=== PATIENT | female | born 1930 | race Caucasian/White ===

== ENCOUNTER 2016-10-29 11:00 | Emergency (ER) | payer MEDICARE, OTHER ==
[~2016-10-29] VITALS: Ht 157.5 cm; Wt 58.4 kg
[2016-10-29 11:04] VITALS: BP 144/78; PULSE 71; RESP 18; TEMP 98.3; O2SAT 96
[2016-10-29] MEDS ORDERED: NORC5TAB PO (11:27)
[2016-10-29] MEDS ORDERED: RALO1TAB PO (11:27)
[2016-10-29] MEDS ORDERED: MOBI7.5T PO (11:27)
[2016-10-29] MEDS ORDERED: ARIC10TA2 PO (11:27)
[2016-10-29] MEDS ORDERED: RAMI10CA PO (11:27)
[2016-10-29] MEDS ORDERED: LIDO1PAD52 TOPICAL (11:27)
[2016-10-29] MEDS ORDERED: ASPI325T PO (11:27)
[2016-10-29] MEDS ORDERED: PRED5TAB PO (11:27)
[2016-10-29] MEDS ORDERED: AMLO2.5T PO (11:27)
--- NOTE | 2016-10-29 11:40 | PD ---
HPI Chief Complaint: Pain: Acute or Chronic Time Seen by Provider: 11:00 Travel History International Travel<30 days: No Contact w/Intl Traveler<30days: No Traveled to known affect area: No History of Present Illness HPI 86-year-old female presents to the emergency room for evaluation of bilateral back pain radiating into bilateral buttocks for the past 2 days. Patient denies trauma or injury. She has history of low back pain and recent x-rays at [place] but the only diagnosis is osteoporosis. She states she woke up with the pain and has been getting worse throughout the last 2 days. Back pain is constant, aching but does not hurt when she touches it. She is unable to bear weight because it is too painful. She usually ambulates with a cane but has had to use a wheelchair in the past 2 days. Pain is worst in the left buttocks but also occurs in the right buttocks. It radiates into her left leg. She has been receiving Almo 5/325, mobile, and lidocaine patches without any relief in symptoms. Her primary care physician also started her on prednisone 5 mg daily on 10/16/16 for pain. Patient reports minimal pain when she is resting. She denies lower extremity paresthesias, saddle anesthesia, and loss of bowel or bladder control. Denies nausea, vomiting, and diarrhea. PFSH Past Medical History High Cholesterol: Yes Cerebrovascular Accident: Yes Dementia: Yes Diverticulitis: Yes Hypertension: Yes Medical other: Yes (CHRONIC PAIN) ?: Not Menopausal: Yes Past Surgical History Surgical History: No Previous Surgery Social History Alcohol Use: No Tobacco Use: No Substance Use: No Allergies-Medications (Allergen,Severity, Reaction): Coded Allergies: No Known Allergies (Unverified , 10/29/16) Reported Meds & Prescriptions Reported Meds & Active Scripts Active Percocet (Oxycodone-Acetaminophen) 7.5-325 mg Tab 1 Tab PO Q6H PRN Reported Lidocaine Patch 12 HR (Lidocaine) 5 % Patch 1 Patch TOPICAL DAILY PRN Remove patch after 12 hours Raloxifene (Raloxifene HCl) 60 Mg Tab 60 Mg PO DAILY Ramipril 10 Mg Cap 10 Mg PO BID Prednisone 5 Mg Tab 5 Mg PO DAILY Mobic (Meloxicam) 7.5 Mg Tab 7.5 Mg PO DAILY [place] (Hydrocodone-Acetaminophen) 5-325 mg Tab 1 Tab PO Q6H PRN Aspirin 325 Mg Tab 325 Mg PO DAILY Aricept (Donepezil HCl) 10 Mg Tablet 1 Tab PO DAILY Amlodipine (Amlodipine Besylate) 2.5 Mg Tab 2.5 Mg PO DAILY Review of Systems Except as stated in HPI: all other systems reviewed are Neg Physical Exam Narrative GENERAL: Well-nourished, well-developed female in no acute distress. Afebrile. SKIN: Focused skin assessment warm/dry. HEAD: Normocephalic. EYES: No scleral icterus. No injection or drainage. NECK: Supple, trachea midline. No JVD or lymphadenopathy. CARDIOVASCULAR: Regular rate and rhythm without murmurs, gallops, or rubs. RESPIRATORY: Breath sounds equal bilaterally. No accessory muscle use. GASTROINTESTINAL: Abdomen soft, non-tender, nondistended. MUSCULOSKELETAL: No cyanosis, or edema. Bilateral 2+ dorsalis pedis pulses. BACK: Nontender without obvious deformity. No CVA tenderness. Negative straight leg raise. Data Data Last Documented VS Vital Signs Date Time Temp Pulse Resp B/P Pulse Ox O2 Delivery O2 Flow Rate FiO2 10/29/16 17:39 64 18 138/78 98 10/29/16 15:20 Room Air 10/29/16 11:[address] Lumb Spine W/O Contrast (10/29/16 ) Comprehensive Metabolic Panel (10/29/16 13:21) Complete Blood Count With Diff (10/29/16 13:21) Us Kidney/Renal/Bladder (10/29/16 ) Iv Access Insert/Monitor (10/29/16 13:26) ^ Straight Catheter (10/29/16 13:45) Urinalysis - C+S If Indicated (10/29/16 13:45) Morphine Inj (Morphine Inj) (10/29/16 14:30) Mri L Spine W&W/O Contrast (10/29/16 ) Gadodiamide Pf Inj (Omniscan Pf Inj) (10/29/16 14:53) TLSO (10/29/16 ) Brace Lso-Orthosis (10/29/16 ) Brace Thoracic Ext (10/29/16 ) Labs Laboratory Tests Test 10/29/16 10/29/16 10/29/16 13:30 13:50 14:25 White Blood Count 15.6 TH/MM3 Red Blood Count 3.94 MIL/MM3 Hemoglobin 11.7 GM/DL Hematocrit 36.4 % Mean Corpuscular Volume 92.3 FL Mean Corpuscular Hemoglobin 29.8 PG Mean Corpuscular Hemoglobin 32.3 % Concent Red Cell Distribution Width 14.0 % Platelet Count 220 TH/MM3 Mean Platelet Volume 8.9 FL Neutrophils (%) (Auto) % Lymphocytes (%) (Auto) % Monocytes (%) (Auto) % Eosinophils (%) (Auto) % Basophils (%) (Auto) % Neutrophils # (Auto) TH/MM3 Lymphocytes # (Auto) TH/MM3 Monocytes # (Auto) TH/MM3 Eosinophils # (Auto) TH/MM3 Basophils # (Auto) TH/MM3 CBC Comment AUTO DIFF Neutrophils % (Manual) 86 % Band Neutrophils % 2 % Lymphocytes % 12 % Neutrophils # (Manual) 13.7 TH/MM3 Differential Comment FINAL DIFF MANUAL Platelet Estimate NORMAL Platelet Morphology Comment ENLARGED Hematology Comments Urine Collection Type CATH Urine Color YELLOW Urine Turbidity CLEAR Urine pH 7.0 Urine Specific [place] 1.015 Urine Protein NEG mg/dL Urine Glucose (UA) NEG mg/dL Urine Ketones 15 mg/dL Urine Occult Blood NEG Urine Nitrite NEG Urine Bilirubin NEG Urine Leukocyte Esterase NEG Urine RBC 0-3 /hpf Microscopic Urinalysis Comment CULT NOT INDICATED Urine Collection Time 1350 Sodium Level 142 MEQ/L Potassium Level 3.7 MEQ/L Chloride Level 105 MEQ/L Carbon Dioxide Level 30.3 MEQ/L Anion Gap 7 MEQ/L Blood Urea Nitrogen 16 MG/DL Creatinine 0.67 MG/DL Estimat Glomerular Filtration 84 ML/MIN Rate Random Glucose 110 MG/DL Calcium Level 8.9 MG/DL Total Bilirubin 0.9 MG/DL Aspartate Amino Transf 27 U/L (AST/SGOT) Alanine Aminotransferase 34 U/L (ALT/SGPT) Alkaline Phosphatase 146 U/L Total Protein 6.6 GM/DL Albumin 3.4 GM/DL [facility] Medical Decision Making Medical Screen Exam Complete: Yes Emergency Medical Condition: Yes Medical Record Reviewed: Yes Differential Diagnosis Sciatica, low back pain, muscle spasm Narrative Course 86-year-old female presents to the emergency room for evaluation of bilateral low back pain radiates into bilateral buttocks the past 2 days. Patient denies any trauma or injury. She has history of chronic low back pain but has had multiple x-rays that "only show osteoporosis." Her back pain is constant throughout bilateral lumbar spine with radiation into the bilateral buttocks. Patient was able to ambulate with a cane 2 days ago but now can only use a wheelchair. She denies focal neurological deficits. CT shows compression fractures of T12 and L5 of unknown chronicity; it also shows hydronephrosis of the left kidney with a 5 mm nonobstructing stone with recommendation for ultrasound. CBC, CMP, and UA were essentially unremarkable. Ultrasound shows dilated left renal collecting system which is likely chronic. Patient was informed of results. MRI of the lumbar spine was performed to evaluate chronicity and reveals L5 is subacute and T12 is chronic. I spoke to the neurosurgeon on-call, Dr. Burnett, who recommends placing patient in TLSO and having her follow-up in his office. Patient was discharged with Percocet and told to take this instead of Lortab. Told to follow up with her primary care physician and neurosurgeon or return to the emergency room for worsening symptoms. She understands and agrees to plan. Diagnosis Primary Impression: Compression fracture of L5 lumbar vertebra Qualified Code: S32.050A - Compression fracture of L5 lumbar vertebra, closed , initial encounter Additional Impression: Sacral fracture, closed Qualified Code: S32.10XA - Closed fracture of sacrum, unspecified portion of sacrum, initial encounter Referrals: Akin Burnett MD Neurosurgeon Patient Instructions: General Instructions, Vertebral Compression Fracture (ED) Additional Instructions: Rest and drink plenty of fluids. Take Percocet instead of Almo as directed, as needed for pain. Do not drink alcohol or drive while taking this medication. Do not use this medication long- term as it may cause constipation. Apply ice to the affected area for 20 minutes at a time, as needed for pain and swelling. Follow-up with a neurosurgeon. Return to the emergency room for worsening symptoms. Med/Other Pt SpecificInfo: Prescription(s) given Scripts Oxycodone-Acetaminophen (Percocet)7.5-325 mg Tab1 Tab PO Q6H PRN (PAIN) #12 TAB Ref 0 Prov:Cari Vee DO 10/29/16 Disposition: 01 DISCHARGE HOME Condition: Stable Alla Alex Oct 29, 2016 11:40
--- NOTE | 2016-10-29 13:25 | RADRPT ---
EXAM DATE/TIME: 10/29/2016 12:27 [facility] COMPARISON: No previous studies available for comparison. INDICATIONS : Low back pain. RADIATION DOSE: 25.25 CTDIvol (mGy) MEDICAL HISTORY : Cerebrovascular disease. Dementia. Hypertension. SURGICAL HISTORY : None. ENCOUNTER: Initial ACUITY: 2 days PAIN SCALE: 10/10 LOCATION: Lumbar spine. TECHNIQUE: Volumetric scanning of the lumbar spine was performed. Multiplanar reconstructions in the sagittal, coronal and oblique axial planes were performed. Using automated exposure control and adjustment of the mA and/or kV according to patient size, radiation dose was kept as low as reasonably achievable t o obtain optimal diagnostic quality images. DICOM format image data is available electronically for review and comparison. FINDINGS: Examination is abnormal. There is a moderate compression deformity involving the superior endplate of T12 and mild compression deformity and apparent cleft involving the inferior endplate of L5. There i s minimal buckling of the inferior endplate of L5. Otherwise, no significant retropulsed fragments. R emaining vertebral body heights are intact. Bony central canal is patent. Sagittal alignment is maint ained. Facets are normally aligned. There is multilevel degenerative spondylosis most prominently at L3-S1 with diffuse disc bulge, osteo phyte formation, and facet arthropathy. No severe neural foraminal stenosis is noted. The Evaluation of the prevertebral soft tissues demonstrates moderate left-sided hydronephrosis extending to the UP junction. There is a 5 mm calcified calculus noted posteriorly in the inferior pole. This does not appear to be at the UP junction. Precise portions of the right kidney are unremarkable witho ut evidence for hydronephrosis. Remaining visualized paraspinal soft tissues are unremarkable. CONCLUSION: 1. Moderate T12 and mild L5 compression fractures of unknown chronicity given lack of prior exams. Marsh spect acute L5 fracture given the presence of an apparent cleft. Correlation with tenderness on palpa tion of the spinous processes is recommended. MRI examination may be performed to evaluate for bone m arrow edema if there is continued uncertainty regarding chronicity. Consider cement augmentation part icularly at L5 given presence of cleft which often times remains symptomatic and is at risk for furth er collapse. 2. Moderate left-sided hydronephrosis extending to the UP junction. There is a 5 mm calcified calculu s in the inferior pole of the left kidney which does not appear to be at the UPJ. Additionally, there is cortical thinning in the left kidney reflecting some degree of chronicity. Further evaluation may be performed with ultrasound exam as clinically warranted. Findings were personally discussed with Dr. Ventura at the time of this dictation. Zain Cheng MD on October 29, 2016 at 13:05 Board Certified Radiologist. This report was verified electronically.
[2016-10-29] MEDS ORDERED: MORPHINE SULFATE 4 MG/ML INJ IV PUSH ONE (13:30)
[2016-10-29 13:44] LABS: HEMATOCRIT 36.4 % (35.0-46.0); MEAN CELL VOLUME 92.3 FL (80.0-100.0); MEAN CORPUSCULAR HEMOGLOBIN 29.8 PG (27.0-34.0); MEAN CORPUSCULAR HGB CONC 32.3 % (32.0-36.0); PLATELET COUNT 220 TH/MM3 (150-450); RED BLOOD COUNT 3.94 MIL/MM3 (4.00-5.30); WHITE BLOOD COUNT 15.6 TH/MM3 (4.0-11.0)
[2016-10-29 13:45] LABS: HEMATOLOGY STUDY COMMENT ND; HEMO FLAGS AUTO DIFF
[2016-10-29 14:09] LABS: BLOOD, URINE NEG (NEG); GLUCOSE,URINE NEG (NEG); KETONE, URINE 15 mg/dL (NEG); NITRITE,URINE NEG (NEG)
[2016-10-29 14:27] LABS: BANDS 2 % (0-6); NEUTROPHIL # MANUAL DIFF 13.7 TH/MM3 (1.8-7.7); PLATELET ESTIMATE SMEAR NORMAL (NORMAL); PLATELET MORPHOLOGY ENLARGED (NORMAL); POLYS (SEG NEUTROPHILS) 86 % (16-70); SCAN/DIFF FINAL DIFF MANUAL
[2016-10-29] MEDS ORDERED: MORPHINE SULFATE 8 MG/ML INJ IV PUSH ONE (14:30)
[2016-10-29 14:38] LABS: METHOD OF COLLECTION CATH; URINE COLOR YELLOW (YELLW/STRAW)
[2016-10-29 14:39] LABS: CHLORIDE 105 MEQ/L (98-107); POTASSIUM 3.7 MEQ/L (3.5-5.1); SODIUM (NA) 142 MEQ/L (136-145)
[2016-10-29 14:39] LABS: COMMENT (UR) CULT NOT INDICATED; CULTURE IF INDICATED CULT NOT INDICATED; RBC, URINE 0-3 /hpf (0-3)
[2016-10-29 14:42] LABS: ANION GAP 7 MEQ/L (5-15); BICARBONATE 30.3 MEQ/L (21.0-32.0); BLOOD UREA NITROGEN 16 MG/DL (7-18)
[2016-10-29 14:45] LABS: ALT (GPT) 34 U/L (10-53); AST (GOT) 27 U/L (15-37)
[2016-10-29 14:46] LABS: GLOMERULAR FILTRATION RATE 84 ML/MIN (>89)
[2016-10-29 14:47] LABS: TOTAL BILIRUBIN ADULT 0.9 MG/DL (0.2-1.0)
[2016-10-29 14:48] LABS: ALKALINE PHOSPHATASE 146 U/L (45-117)
[2016-10-29] MEDS ORDERED: GADODIAMIDE PF 287 MG/ML 10 ML VIAL (for RAD MRI) IV ONE (14:53)
--- NOTE | 2016-10-29 14:58 | RADRPT ---
EXAM DATE/TIME: 10/29/2016 14:06 [facility] COMPARISON: CT LUMBAR SPINE W/O CONTRAST, October 29, 2016, 12:27. INDICATIONS : Hydronephrosis. MEDICAL HISTORY : Dementia. Hypercholesterolemia. Diverticulitis. CVA. HTN. Chronic pain. SURGICAL HISTORY : None. ENCOUNTER: Initial ACUITY: 1 day PAIN SCORE: 6/10 LOCATION: Bilateral flank MEASUREMENTS: RIGHT KIDNEY: 11.4 x 5.1 x 5.3 cm LEFT KIDNEY: 9.3 x 5.3 x 5.5 cm FINDINGS: RIGHT KIDNEY: Renal cortex is normal in thickness and echotexture. No hydronephrosis, stone, or mass. LEFT KIDNEY: Left kidney demonstrates a lobulated contour with areas of cortical thinning. There is distention of the left collecting system and extrarenal pelvis with a caliber change at the level of the UPJ on the prior CT. The stone identified in the extrarenal pelvis on recent CT is not appreciated on this exam ination. There is a simple cyst at the upper pole measuring 3.3 cm. BLADDER: Within normal limits given the degree of distension. CONCLUSION: 1. Dilated left renal collecting system. Comparing this examination to the prior CT suggests a UPJ st enosis which is likely chronic given the left renal cortical thinning. 2. The 5 mm nonobstructing left renal pelvis stone identified on prior CT is not appreciated by ultra sound. Cristiano Aguirre MD on October 29, 2016 at 14:52 Board Certified Radiologist. This report was verified electronically.
[2016-10-29 15:20] VITALS: BP 140/64; PULSE 77; RESP 18; O2SAT 94
--- NOTE | 2016-10-29 15:39 | RADRPT ---
EXAM DATE/TIME: 10/29/2016 14:43 [facility] COMPARISON: CT LUMBAR SPINE W/O CONTRAST, October 29, 2016, 12:27. INDICATIONS : Pain. Lower back pain radiating to right leg. CONTRAST: 10 cc Omniscan (gadodiamide) IV MEDICAL HISTORY : Hypertension. Dementia. SURGICAL HISTORY : Tubal ligation. ENCOUNTER: Initial ACUITY: 4-6 days PAIN SCORE: 7/10 LOCATION: Back. TECHNIQUE: Multiplanar multisequence MRI of the lumbar spine was performed with and without contrast. FINDINGS: The most caudal appearing lumbar vertebra is numbered as L5. VERTEBRAE: There is an old moderate compression fracture injury involving the superior endplate of T12. No abnor mal bone marrow edema is demonstrated. There is a mild to moderate subacute compression fracture invo lving the inferior endplate of L5. There is bone marrow edema across the inferior endplate of L5. The re is normal bony density of the remaining lumbar vertebral bodies. There are primary bony degenerati ve changes of the lumbar spine. No spondylolisthesis is demonstrated. There is a nondisplaced fractur e with bone marrow edema involving the body of the right sacrum. This is most likely an insufficiency fracture. CONUS: Normal level and configuration. POST CONTRAST: No abnormal areas of contrast enhancement are seen. T12-L1: The thecal sac has a normal diameter. No evidence of disc bulge or protrusion. The neural foramina are patent bilaterally. L1-L2: The thecal sac has a normal diameter. No evidence of disc bulge or protrusion. The neural foramina are patent bilaterally. L2-L3: The thecal sac has a normal diameter. No evidence of disc bulge or protrusion. The neural foramina are patent bilaterally. Bilateral facet arthritis. L3-L4: The thecal sac has a normal diameter. No evidence of disc bulge or protrusion. The neural foramina are patent bilaterally. Bilateral facet arthritis. L4-L5: The thecal sac has a normal diameter. No evidence of disc bulge or protrusion. The neural foramina are patent bilaterally. Bilateral facet arthritis. L5-S1: The thecal sac has a normal diameter. No evidence of disc bulge or protrusion. The neural foramina are patent bilaterally. Bilateral facet arthritis. CONCLUSION: 1. Subacute compression fracture involving the inferior plate of L5. 2. Old compression fracture involving the superior endplate of T12 3. Mild primary bony degenerative changes throughout the lumbar spine with bilateral facet arthritis at multiple levels. 4. Nondisplaced insufficiency fracture through the body of the right sacrum. Srini Elkins MD on October 29, 2016 at 15:31 Board Certified Radiologist. This report was verified electronically.
[2016-10-29] MEDS ORDERED: PERC7.5T13 PO (16:42)
[2016-10-29 17:39] VITALS: BP 138/78
[2016-10-30] MEDS ORDERED: SENN1TAB PO (13:29)
[2016-10-30] MEDS ORDERED: NORC5TAB PO (13:29)
[2016-10-30] MEDS ORDERED: VITA100021 SL (13:29)
== END 2016-10-29 17:40 | disposition home or self-care (01) ==
LOC: PHEFT 11:00
DX: S32.050A Wedge compression fracture of fifth lumbar vertebra, initial encounter for closed fracture (principal); S32.10XA Unspecified fracture of sacrum, initial encounter for closed fracture; N13.30 Unspecified hydronephrosis; G89.29 Other chronic pain; E78.00 Pure hypercholesterolemia, unspecified; F03.90 Unspecified dementia, unspecified severity, without behavioral disturbance, psychotic disturbance, mood disturbance, and anxiety; I10 Essential (primary) hypertension; Z79.899 Other long term (current) drug therapy; Z86.73 Personal history of transient ischemic attack (TIA), and cerebral infarction without residual deficits; X58.XXXA Exposure to other specified factors, initial encounter
CPT/HCPCS: 72131; 72158; 76775; 80053; 81001; 85007; 85027; 96374; 99285; A9579; J2270; L0200; L0484

== ENCOUNTER 2016-10-30 12:59 | Inpatient (IN) | payer MEDICARE, OTHER ==
[~2016-10-30] VITALS: Ht 157.5 cm; Wt 58.2 kg
[~2016-10-30 12:59] MED LIST: AMLO2.5T PO; ARIC10TA2 PO; ASPI325T PO; LIDO1PAD52 TOPICAL; MOBI7.5T PO; NORC5TAB PO; PERC7.5T13 PO; PRED5TAB PO; RALO1TAB PO; RAMI10CA PO
[2016-10-30 13:15] VITALS: BP 134/63; PULSE 77; RESP 16; O2SAT 95
[2016-10-30] MEDS ORDERED: VITA100021 SL (13:29)
[2016-10-30] MEDS ORDERED: SENN1TAB PO (13:29)
[2016-10-30] MEDS ORDERED: NORC5TAB PO (13:29)
--- NOTE | 2016-10-30 14:59 | PD ---
HPI Chief Complaint: Back/ Neck Pain or Injury Time Seen by Provider: 14:45 Travel History International Travel<30 days: No Contact w/Intl Traveler<30days: No Traveled to known affect area: No History of Present Illness HPI This is an 86-year-old female who is a resident [place]. She presents via EMS for evaluation of lower back pain. The patient has had lower back pain for 3 days. There was no mechanism injury. The pain is a aching pain that is constant, worse with movement. Denies any radicular symptoms, bowel or bladder incontinence or saddle anesthesia. Denies any flank pain, dysuria, abdominal pain, fevers or chills. She typically ambulates with a cane but over the past 3 days she's been having to get around in a wheelchair. She was seen at [facility] for evaluation of this pain. She underwent an MRI of the lumbar spine which revealed a likely subacute fracture of the L5 as well as a insufficiency fracture of the right sacrum. The case at that time was discussed with the on-call neurosurgeon Dr. Burnett who recommended TLSO brace and outpatient follow-up. The patient was discharged with Percocet. She reports since then she has had persistent lower back pain which is completely unrelieved with the use of Percocet. The pain is a 10 out of 10 with movement. Today she was unable to sit down at lunch and so EMS was called. She has no other complaints. PFSH Past Medical History High Cholesterol: Yes Cerebrovascular Accident: Yes Dementia: Yes Diverticulitis: Yes Hypertension: Yes Menopausal: Yes Social History Alcohol Use: No Tobacco Use: No Substance Use: No Allergies-Medications (Allergen,Severity, Reaction): Coded Allergies: No Known Allergies (Unverified , 10/30/16) Reported Meds & Prescriptions Reported Meds & Active Scripts Active Percocet (Oxycodone-Acetaminophen) 7.5-325 mg Tab 1 Tab PO Q6H PRN Reported Vitamin B-12 (Cyanocobalamin) 1,000 Mcg Subl 1,000 Mcg SL DAILY Senna-Plus (Sennosides-Docusate Sodium) 8.6-50 Mg Tab 2 Tab PO DAILY PRN [place] (Hydrocodone-Acetaminophen) 5-325 mg Tab 1 Tab PO HS Lidocaine Patch 12 HR (Lidocaine) 5 % Patch 1 Patch TOPICAL DAILY PRN Remove patch after 12 hours Raloxifene (Raloxifene HCl) 60 Mg Tab 60 Mg PO DAILY Ramipril 10 Mg Cap 10 Mg PO BID Prednisone 5 Mg Tab 5 Mg PO DAILY Mobic (Meloxicam) 7.5 Mg Tab 7.5 Mg PO BID [place] (Hydrocodone-Acetaminophen) 5-325 mg Tab 0.5 Tab PO Q6H PRN Aspirin 325 Mg Tab 325 Mg PO DAILY Aricept (Donepezil HCl) 10 Mg Tablet 1 Tab PO DAILY Amlodipine (Amlodipine Besylate) 2.5 Mg Tab 2.5 Mg PO DAILY Review of Systems Except as stated in HPI: all other systems reviewed are Neg Physical Exam Narrative GENERAL: Pleasant well-developed well-nourished female in no acute distress sitting upright in hospital bed. TLSO braces in place. SKIN: Warm and dry. HEAD: Atraumatic. Normocephalic. EYES: Pupils equal and round. No scleral icterus. No injection or drainage. ENT: No nasal bleeding or discharge. Mucous membranes pink and moist. NECK: Trachea midline. No JVD. CARDIOVASCULAR: Regular rate and rhythm. No murmur appreciated. RESPIRATORY: No accessory muscle use. Clear to auscultation. Breath sounds equal bilaterally. GASTROINTESTINAL: Abdomen soft, non-tender, nondistended. Hepatic and splenic margins not palpable. MUSCULOSKELETAL: No obvious deformities. There is tenderness to palpation along the lumbar midline. No CVA tenderness. There is spontaneous use of the upper and lower extremities. NEUROLOGICAL: Awake and alert. No obvious cranial nerve deficits. Motor grossly within normal limits. Normal speech. PSYCHIATRIC: Appropriate mood and affect; insight and judgment normal. Data Data Last Documented VS Vital Signs Date Time Temp Pulse Resp B/P Pulse Ox O2 Delivery O2 Flow Rate FiO2 10/30/16 15:00 98.4 73 18 180/77 96 Room Air Orders Morphine Inj (Morphine Inj) (10/30/16 15:00) Ondansetron Inj (Zofran Inj) (10/30/16 15:00) Iv Access Insert/Monitor (10/30/16 14:56) Complete Blood Count With Diff (10/30/16 14:56) Comprehensive Metabolic Panel (10/30/16 14:56) Admit Order (Ed Use Only) (10/30/16 15:12) MDM Medical Decision Making Medical Screen Exam Complete: Yes Emergency Medical Condition: Yes Medical Record Reviewed: Yes Differential Diagnosis Intractable back pain, compression fracture, renal stone, muscle spasm, AAA Narrative Course This is an 86-year-old female who presents for lower back pain which is unrelieved with the use of Percocet at home and with the use of TLSO brace.. She has an L5 compression fracture as well as a insufficiency fracture of the right sacrum. After discussion with the patient she does not feel that she will be able to perform her normal activities of daily living at home and would prefer to be admitted for pain control. Discussed with Dr. Moran who is agreeable with admission. Diagnosis Primary Impression: Compression fracture of L5 lumbar vertebra Qualified Code: S32.050D - Compression fracture of L5 lumbar vertebra, with routine healing, subsequent encounter Additional Impression: Sacral fracture, closed Qualified Code: S32.10XD - Closed fracture of sacrum with routine healing, unspecified portion of sacrum, subsequent encounter Admitting Information Admitting Physician Requests: Randolph Deal Oct 30, 2016 14:59
[2016-10-30 15:00] VITALS: BP 180/77; PULSE 73; RESP 18; TEMP 98.4; O2SAT 96
[2016-10-30] MEDS ORDERED: MORPHINE SULFATE 4 MG/ML INJ IV PUSH ONE (15:00)
[2016-10-30] MEDS ORDERED: ONDANSETRON HCL 4 MG/2 ML VIAL IV PUSH ONE (15:00)
[2016-10-30] MEDS ORDERED: SODIUM CHLORIDE 0.9% FLUSH 10 ML FLUSH IV FLUSH PRN ×2 (15:30→17:00)
[2016-10-30 15:41] LABS: AUTOMATED NEUTROPHIL # 13.3 TH/MM3 (1.8-7.7); BASOPHIL % 0.3 % (0.0-2.0); EOSINOPHIL % 0.1 % (0.0-4.0); HEMATOCRIT 37.3 % (35.0-46.0); HEMO FLAGS DIFF FINAL; LYMPH % 6.5 % (9.0-44.0); MEAN CORPUSCULAR HEMOGLOBIN 28.9 PG (27.0-34.0); MEAN CORPUSCULAR HGB CONC 31.1 % (32.0-36.0); MONO % 5.5 % (0.0-8.0); NEUT % 87.6 % (16.0-70.0); PLATELET COUNT 207 TH/MM3 (150-450); RED BLOOD COUNT 4.01 MIL/MM3 (4.00-5.30); WHITE BLOOD COUNT 15.2 TH/MM3 (4.0-11.0)
[2016-10-30 16:40] VITALS: BP 154/67; PULSE 82; RESP 15; O2SAT 98
--- NOTE | 2016-10-30 16:46 | HHI.HP ---
[facility] Service Family Medicine Primary Care Physician Lydia Peterson, DO Admission Diagnosis intractable lower back pain Diagnoses: International Travel<30 Days: No Contact w/Intl Traveler<30days: No Known Affected Area: No History of Present Illness Patient is an 86-year-old female with history of hypertension, osteoporosis, and osteoporosis who presents to the ED from her [facility] for intractable low back pain. She states that at baseline she is able to walk independently with a cane but over the last 3 days she has been will tell down due to her low back pain. The pain is noted to be 10/10 in severity, preventing her from being able to stand, and has not been relieved at home with [place], given at 7.5 mg hydrocodone dose. She returned to the ED from the [facility] due to the pain being excruciating. She notes that she would be interested in surgery if this is an option she normally enjoys being able to do her ADLs/IADLs independently. She denies any urinary/stool incontinence or retention, but is wearing an adult diaper due to the pain with movement she has had over the last 3 days. She denies dysuria and is noted to have a normal UA on ED evaluation on 10/29/16. She is able to get to the restroom after being placed in a wheelchair but this is very painful. She denies any history of falls or syncope. She denies chest pain, shortness of breath, nausea vomiting, fevers, chills, rashes, bruises, neck or upper back pain. She has chronic osteoarthritis and notes that her right hip gives her pain regularly for which she sometimes uses lidocaine patch. She was seen in the [facility] ED on 10/29/16 at which time a lumbar spine CT as well as MRI were performed: * CT showing moderate T12 and mild L5 compression fracture of unknown chronicity. L5 fractures possibly acute given apparent cleft on imaging study. It was also notable for moderate left-sided hydronephrosis. * The MRI was subsequently performed and notable for a subacute compression fracture of the inferior plate at L5. She also has mild degenerative changes to the lumbar spine with bilateral facet joint arthritis at multiple levels. Lastly , she has a nondisplaced insufficiency fracture through the body of the right sacrum. (Bette Moran MD R1) Review of Systems Constitutional: DENIES: Fever, Weight gain, Weight loss, Chills, Dizziness, Change in appetite Eyes: DENIES: Blurred vision, Diplopia Respiratory: DENIES: Cough, Wheezing, Shortness of breath Cardiovascular: DENIES: Chest pain, Palpitations, Syncope Gastrointestinal: DENIES: Abdominal pain, Black stools, Bloody stools, Constipation, Diarrhea, Nausea, Vomiting Genitourinary: DENIES: Urinary frequency, Urinary incontinence, Hematuria, Dysuria Musculoskeletal: COMPLAINS OF: Joint pain (hip, back), Back pain, DENIES: Stiffness, Joint Swelling, Neck pain Integumentary: DENIES: Pruritus, Rash Neurologic: COMPLAINS OF: Abnormal gait (antalgic), Poor Balance, DENIES: Headache, Localized weakness, Paresthesias, Seizures, Speech Problems, Tremor Psychiatric: DENIES: Anxiety, Confusion, Mood changes, Depression (Bette Moran MD R1) Past Family Social History Past Medical History HTN Osteoporosis Osteoarthritis Mild cognitive impairment History of TIA History of diverticulitis History of vitamin D deficiency Past Surgical History None Reported Medications Reported Meds & Active Scripts Active Percocet (Oxycodone-Acetaminophen) 7.5-325 mg Tab 1 Tab PO Q6H PRN Reported Vitamin B-12 (Cyanocobalamin) 1,000 Mcg Subl 1,000 Mcg SL DAILY Senna-Plus (Sennosides-Docusate Sodium) 8.6-50 Mg Tab 2 Tab PO DAILY PRN [place] (Hydrocodone-Acetaminophen) 5-325 mg Tab 1 Tab PO HS Lidocaine Patch 12 HR (Lidocaine) 5 % Patch 1 Patch TOPICAL DAILY PRN Remove patch after 12 hours Raloxifene (Raloxifene HCl) 60 Mg Tab 60 Mg PO DAILY Ramipril 10 Mg Cap 10 Mg PO BID Prednisone 5 Mg Tab 5 Mg PO DAILY Mobic (Meloxicam) 7.5 Mg Tab 7.5 Mg PO BID [place] (Hydrocodone-Acetaminophen) 5-325 mg Tab 0.5 Tab PO Q6H PRN Aspirin 325 Mg Tab 325 Mg PO DAILY Aricept (Donepezil HCl) 10 Mg Tablet 1 Tab PO DAILY Amlodipine (Amlodipine Besylate) 2.5 Mg Tab 2.5 Mg PO DAILY (Bette Moran MD R1) Allergies: Coded Allergies: No Known Allergies (Unverified , 10/30/16) Family History Sister: Pancreatic cancer at approximately 60 years of age Social History Cigarettes: Remote [id number] history Alcohol: Occasional wine Illicits: None She lives at [facility] in [place], [place] Normally uses a cane for ambulation Has been using wheelchair for ambulation over the last 3 days POA: Briana Guillen [phone] (daughter). States there are papers for this States she is documented DNR. Admission record for [facility] does not list a code status. (Bette Moran MD R1) Physical Exam Vital Signs Vital Signs Date Time Temp Pulse Resp B/P Pulse Ox O2 Delivery O2 Flow Rate FiO2 10/30/16 15:00 98.4 73 18 180/77 96 Room Air 10/30/16 13:15 77 16 134/63 95 Physical Exam GENERAL: This is a well-nourished, well-developed patient, in no apparent distress. SKIN: No rashes, ecchymoses or lesions. Cool and dry. HEAD: Atraumatic. Normocephalic. No temporal or scalp tenderness. EYES: Pupils equal round and reactive. Extraocular motions intact. No scleral icterus. No injection or drainage. ENT: Nose without bleeding, purulent drainage or septal hematoma. Throat without erythema, tonsillar hypertrophy or exudate. Uvula midline. Airway patent. NECK: Trachea midline. No JVD or lymphadenopathy. Supple, nontender, no meningeal signs. CARDIOVASCULAR: Regular rate and rhythm without murmurs, gallops, or rubs. RESPIRATORY: Clear to auscultation. Breath sounds equal bilaterally. No wheezes , rales, or rhonchi. GASTROINTESTINAL: Abdomen soft, non-tender, nondistended. No hepato-splenomegaly , or palpable masses. No guarding. MUSCULOSKELETAL: Extremities without clubbing, cyanosis, or edema. No joint tenderness, effusion, or edema noted. No calf tenderness. Negative Homans sign bilaterally. NEUROLOGICAL: Awake and alert. Cranial nerves II through XII intact. Motor and sensory grossly within normal limits. Five out of 5 muscle strength in all muscle groups. Normal speech. Laboratory Laboratory Tests Test 10/30/16 15:13 White Blood Count 15.2 Red Blood Count 4.01 Hemoglobin 11.6 Hematocrit 37.3 Mean Corpuscular Volume 93.0 Mean Corpuscular Hemoglobin 28.9 Mean Corpuscular Hemoglobin 31.1 Concent Red Cell Distribution Width 14.0 Platelet Count 207 Mean Platelet Volume 9.6 Neutrophils (%) (Auto) 87.6 Lymphocytes (%) (Auto) 6.5 Monocytes (%) (Auto) 5.5 Eosinophils (%) (Auto) 0.1 Basophils (%) (Auto) 0.3 Neutrophils # (Auto) 13.3 Lymphocytes # (Auto) 1.0 Monocytes # (Auto) 0.8 Eosinophils # (Auto) 0.0 Basophils # (Auto) 0.0 CBC Comment DIFF FINAL Differential Comment (Bette Moran MD R1) Result Diagram: 10/30/16 1513 Assessment and Plan Attending Attestation THIS CASE WAS DISCUSSED WITH THE RESIDENT PHYSICIANS. I HAVE REVIEWED THE RECORD AND AGREE WITH THE ABOVE NOTE AND PLAN OF CARE WAS DISCUSSED. I HAVE AUTHORIZED THE ORDER FOR ADMISSION TO AN IN-PATIENT STATUS. (Tracie Rust MD) Problem List: (1) Compression fracture of L5 lumbar vertebra Status: Acute Plan: Patient is admitted for intractable pain related to lower back subacute compression fracture. She has history of osteoarthritis and osteoporosis per report She is status post morphine 4 mg IV 1 in the ED, with reported improvement of her pain to Plan: * Continue TLSO brace * Pain control with [place] 5/235mg for pain 1-5, 7.5/325 for 6-10, Morphine 4mg IV q3hr prn breakthrough * Consult neurosurgery for evaluation of surgical management, as patient is interested in this given the severity of her pain and non-resolution with conservative management * Assist with bathroom needs at bedside. She is using an adult diaper at this time and not requiring a Ly. * We'll review her meds, check vitamin D level. Calcium level normal on admission * Of note, patient is on raloxifene, likely for her osteoporosis. Will continue (2) Sacral fracture, closed Status: Acute Plan: Noted on imaging 11/08/16 Continue conservative management Consider sacral cushion (3) Stenosis of ureteropelvic junction (UPJ) Status: Acute Plan: Noted on renal ultrasound 10/29/16. She has a dilated left renal collecting system. No GLORIA No urinary symptoms UA on admission is unremarkable aside from mild elevation of ketones Plan: Monitor kidney function Offer IV fluids if indicated Continue by mouth hydration for now (4) HTN (hypertension) Status: Chronic Plan: Continue home ramipril 10 mg twice a day. Give when necessary clonidine as needed for BP > 180/100 (5) Fluids/Electrolytes/Nutrition/Prophylaxis Status: Acute Plan: Fluids: tolerating PO Electrolytes: monitor and replete as needed, BMP pending Nutrition: regular diet DVT Prophylaxis: Early ambulation. Heparin 5000U subQ [id number] SCDs GI Prophylaxis: not indicated (Bette Moran MD R1) Problem Qualifiers (1) Compression fracture of L5 lumbar vertebra: Qualified Code: S32.050D - Compression fracture of L5 lumbar vertebra, with routine healing, subsequent encounter (2) Sacral fracture, closed: Qualified Code: S32.10XD - Closed fracture of sacrum with routine healing, unspecified portion of sacrum, subsequent encounter Bette Moran MD R1 Oct 30, 2016 16:46 Tracie Rust MD Oct 31, 2016 12:55
[2016-10-30] MEDS ORDERED: SENNOSIDES 8.6 MG TAB PO PRN (17:00)
[2016-10-30] MEDS ORDERED: ONDANSETRON HCL 4 MG/2 ML VIAL IVP PRN (17:00)
[2016-10-30] MEDS ORDERED: ACETAMINOPHEN 325 MG TAB PO PRN (17:00)
[2016-10-30] MEDS ORDERED: MAGNESIUM HYDROXIDE SUSP 30 ML CUP PO PRN (17:00)
[2016-10-30] MEDS ORDERED: NALOXONE HCL 0.4 MG/ML AMP IV PRN ×2 (17:00→17:15)
[2016-10-30] MEDS ORDERED: BISACODYL 10 MG SUPP RECTAL PRN (17:00)
[2016-10-30] MEDS ORDERED: LACTULOSE SYRUP 20 GM/30 ML CUP PO PRN (17:00)
[2016-10-30] MEDS ORDERED: ACETAMINOPHEN/HYDROcodone 325 MG/5 MG TAB PO PRN (17:15)
[2016-10-30 18:06] LABS: ALKALINE PHOSPHATASE 134 U/L (45-117); ALT (GPT) 30 U/L (10-53); ANION GAP 9 MEQ/L (5-15); AST (GOT) 48 U/L (15-37); BICARBONATE 27.5 MEQ/L (21.0-32.0); BLOOD UREA NITROGEN 22 MG/DL (7-18); CHLORIDE 101 MEQ/L (98-107); GLOMERULAR FILTRATION RATE 68 ML/MIN (>89); SODIUM (NA) 137 MEQ/L (136-145); TOTAL BILIRUBIN ADULT 0.7 MG/DL (0.2-1.0)
[2016-10-30 18:07] VITALS: BP 154/67
[2016-10-30 18:08] LABS: POTASSIUM 4.9 MEQ/L (3.5-5.1)
[2016-10-30 20:00] VITALS: BP 111/58; PULSE 79; RESP 18; TEMP 96.4; O2SAT 92
[2016-10-30] MEDS ORDERED: SODIUM CHLORIDE 0.9% FLUSH 10 ML FLUSH IV FLUSH SCH (21:00)
[2016-10-30] MEDS: SODIUM CHLORIDE 0.9% FLUSH 10 ML FLUSH IV FLUSH SCH (21:10)
[2016-10-30] MEDS: ACETAMINOPHEN/HYDROcodone 325 MG/7.5 MG TAB PO PRN (21:10)
[2016-10-30] MEDS: DOCUSATE SODIUM 50 MG/SENNA 8.6 MG TAB PO SCH (21:10)
--- NOTE | 2016-10-30 22:26 | PD.CONS ---
History of Present Illness Service Neurosurgery Consult Requested By Bette Moran M.D. Reason for Consult Lumbar fracture Primary Care Physician Lydia Peterson DO Diagnoses: History of Present Illness Pleasant 86-year-old female who states that approximately 4 days ago she developed rapidly progressive severe low back pain without radiation to the lower extremities. She has no significant weakness or numbness in the lower extremities and no complain of bowel or bladder dysfunction. She normally ambulates reasonably well and takes care of her daily activities. However the past 3 or 4 days she has been mostly mobilized in a wheelchair and unable to do things for herself. She presented to the emergency room yesterday, and was diagnosed with a lumbar compression fracture. She was discharged back to the [facility] where she resides, but returned today due to persistent severe pain not resolved with medications. She denies any significant neck pain. No pain weakness or numbness in the upper extremities Review of Systems Constitutional: DENIES: Fatigue Eyes: DENIES: Blurred vision Ears, nose, mouth, throat: DENIES: Vertigo Respiratory: DENIES: Shortness of breath Cardiovascular: DENIES: Chest pain, Palpitations Gastrointestinal: DENIES: Abdominal pain, Nausea Musculoskeletal: COMPLAINS OF: Joint pain, Muscle aches, Back pain, DENIES: Neck pain Hematologic/lymphatic: DENIES: Bruising Neurologic: COMPLAINS OF: Abnormal gait, DENIES: Headache Psychiatric: DENIES: Anxiety, Confusion Past Family Social History Allergies: Coded Allergies: No Known Allergies (Unverified , 10/30/16) Past Medical History History of osteoporosis Hypertension Denies significant cardiac or pulmonary disease Past Surgical History No major surgeries reported Reported Medications Reported Meds & Active Scripts Active Percocet (Oxycodone-Acetaminophen) 7.5-325 mg Tab 1 Tab PO Q6H PRN Reported Vitamin B-12 (Cyanocobalamin) 1,000 Mcg Subl 1,000 Mcg SL DAILY Senna-Plus (Sennosides-Docusate Sodium) 8.6-50 Mg Tab 2 Tab PO DAILY PRN [place] (Hydrocodone-Acetaminophen) 5-325 mg Tab 1 Tab PO HS Lidocaine Patch 12 HR (Lidocaine) 5 % Patch 1 Patch TOPICAL DAILY PRN Remove patch after 12 hours Raloxifene (Raloxifene HCl) 60 Mg Tab 60 Mg PO DAILY Ramipril 10 Mg Cap 10 Mg PO BID Prednisone 5 Mg Tab 5 Mg PO DAILY Mobic (Meloxicam) 7.5 Mg Tab 7.5 Mg PO BID [place] (Hydrocodone-Acetaminophen) 5-325 mg Tab 0.5 Tab PO Q6H PRN Aspirin 325 Mg Tab 325 Mg PO DAILY Aricept (Donepezil HCl) 10 Mg Tablet 1 Tab PO DAILY Amlodipine (Amlodipine Besylate) 2.5 Mg Tab 2.5 Mg PO DAILY Family History She has a sister with cancer Social History She stopped smoking many years ago. Does not drink alcohol Physical Exam Vital Signs Vital Signs Date Time Temp Pulse Resp B/P Pulse Ox O2 Delivery O2 Flow Rate FiO2 10/30/16 18:07 154/67 10/30/16 17:43 Nasal Cannula 2.00 10/30/16 16:40 82 15 154/67 98 Nasal Cannula 2 10/30/16 15:00 98.4 73 18 180/77 96 Room Air 10/30/16 13:15 77 16 134/63 95 Physical Exam GENERAL: This is a well-nourished, well-developed patient, in no apparent distress. SKIN: No rashes, ecchymoses or lesions. Cool and dry. HEAD: Atraumatic. Normocephalic. No temporal or scalp tenderness. EYES: Sclerae are clear and nonicteric ENT: Oropharynx clear. No facial edema or ecchymosis NECK: Trachea midline. No JVD or lymphadenopathy. Supple, nontender, no meningeal signs. CARDIOVASCULAR: Regular rate and rhythm without murmurs, gallops, or rubs. RESPIRATORY: Clear to auscultation. Breath sounds equal bilaterally. No wheezes , rales, or rhonchi. GASTROINTESTINAL: Abdomen soft, non-tender, nondistended. No hepato-splenomegaly , or palpable masses. No guarding. MUSCULOSKELETAL: Extremities without cyanosis, or edema. No joint tenderness, effusion, or edema noted. No calf tenderness. Posterior tibial pulse 2+ bilateral. Moderate tenderness in the lower lumbar paraspinous musculature and right and left mid upper gluteal region. No significant lateral hip tenderness. She complains of low back pain with bilateral hip range of motion and mild straight leg raising. NEUROLOGICAL: Awake and alert Oriented X3 Speech is clear Conversant and appropriate Follow simple commands well Answers questions appropriately Reasonable judgment and insight Recent and remote memory are intact No evidence of anxiety or depression Extraocular movements intact Facial motor movements symmetric Sensation intact light touch all extremities Strength normal major flexion and extension groups all extremities She does complain of pain in the bilateral right and left gluteal region and low back with proximal bilateral lower extremity motor testing. Alisa's response of some bilateral There is no ankle clonus. Plantar responses are neutral Laboratory Laboratory Tests Test 10/30/16 10/30/16 15:13 16:50 White Blood Count 15.2 Red Blood Count 4.01 Hemoglobin 11.6 Hematocrit 37.3 Mean Corpuscular Volume 93.0 Mean Corpuscular Hemoglobin 28.9 Mean Corpuscular Hemoglobin 31.1 Concent Red Cell Distribution Width 14.0 Platelet Count 207 Mean Platelet Volume 9.6 Neutrophils (%) (Auto) 87.6 Lymphocytes (%) (Auto) 6.5 Monocytes (%) (Auto) 5.5 Eosinophils (%) (Auto) 0.1 Basophils (%) (Auto) 0.3 Neutrophils # (Auto) 13.3 Lymphocytes # (Auto) 1.0 Monocytes # (Auto) 0.8 Eosinophils # (Auto) 0.0 Basophils # (Auto) 0.0 CBC Comment DIFF FINAL Differential Comment Sodium Level 137 Potassium Level 4.9 Chloride Level 101 Carbon Dioxide Level 27.5 Anion Gap 9 Blood Urea Nitrogen 22 Creatinine 0.80 Estimat Glomerular Filtration 68 Rate Random Glucose 90 Calcium Level 8.9 Total Bilirubin 0.7 Aspartate Amino Transf 48 (AST/SGOT) Alanine Aminotransferase 30 (ALT/SGPT) Alkaline Phosphatase 134 Total Protein 7.1 Albumin 3.2 Result Diagram: 10/30/16 1513 10/30/16 1650 Imaging 10/29/2016 MRI lumbar spine images are reviewed by the undersigned. The study reveals a chronic-appearing superior T12 compression fracture with kyphosis and no significant retropulsion. There is a probable acute to subacute inferior L5 vertebral fracture with inferior endplate deformity, no significant retropulsion. There appears to be a rather acute right sacral insufficiency fracture Assessment and Plan Assessment and Plan Impression: 1. Probable acute to subacute L5 inferior endplate fracture on MRI 10/29/16 without significant retropulsion. Patient has severe progressive low back pain over the past few days. 2. Evidence of right sacral insufficiency fracture on MRI of 10/29/16 3. Hypertension Recommendations: Findings were discussed with the patient. Options of conservative treatment versus possible kyphoplasty been discussed. We will continue to mobilize her out of bed with the TLSO brace, pain medications, physical therapy over the weekend. If her pain continues to be of such severity that she cannot be mobilized adequately out of bed then L5 kyphoplasty will be considered for early next week. Zack Quezada MD Oct 30, 2016 22:26
[2016-10-30] MEDS: MORPHINE SULFATE 4 MG/ML INJ IV PRN (22:57)
[2016-10-31] VITALS (7 sets, daily range): BP systolic 116–147; BP diastolic 58–84; PULSE 70–81; RESP 18–20; TEMP 95.8–98.5; O2SAT 92–97
[2016-10-31] MEDS ORDERED: cloNIDine HCL 0.1 MG TAB PO PRN (02:15)
[2016-10-31] MEDS ORDERED: PILL SPLITTER OTHER PRN (02:15)
[2016-10-31] MEDS: RAMIPRIL 5 MG CAP PO SCH ×3 (02:56→20:32)
[2016-10-31] MEDS: MORPHINE SULFATE 4 MG/ML INJ IV PRN (03:00)
[2016-10-31] MEDS: ACETAMINOPHEN/HYDROcodone 325 MG/7.5 MG TAB PO PRN (07:10)
[2016-10-31] MEDS ORDERED: HYDROmorphone HCL PF 1 MG/ML VIAL IV ONE (07:15)
[2016-10-31] MEDS ORDERED: NALOXONE HCL 0.4 MG/ML AMP IV PRN (07:15)
[2016-10-31] MEDS: amLODIPine BESYLATE 5 MG TAB PO SCH (08:12)
[2016-10-31] MEDS: DONEPEZIL HCL 5 MG TAB PO SCH ×2 (08:12→20:33)
[2016-10-31] MEDS: SODIUM CHLORIDE 0.9% FLUSH 10 ML FLUSH IV FLUSH SCH ×2 (08:13→20:33)
[2016-10-31] MEDS: predniSONE 5 MG TAB PO SCH (08:13)
[2016-10-31] MEDS: DOCUSATE SODIUM 50 MG/SENNA 8.6 MG TAB PO SCH ×2 (08:13→20:32)
[2016-10-31] MEDS: HEPARIN SODIUM - SQ 10,000 UNITS/ML VIAL SQ SCH ×2 (08:13→20:33)
[2016-10-31] MEDS: oxyCODONE/ACETAMINOPHEN 5 MG/325 MG TAB PO SCH ×4 (08:14→20:33)
[2016-10-31] MEDS ORDERED: ASPIRIN 325 MG TAB PO SCH (09:00)
[2016-10-31] MEDS ORDERED: RALOXIFENE HCL 60 MG TAB PO SCH (09:00)
[2016-10-31] MEDS: SODIUM CHLOR 0.9% 1000 ML INJ 1,000 ML IV SCH (12:00)
[2016-10-31 12:25] LABS: BASOPHIL % 0.3 % (0.0-2.0); EOSINOPHIL # 0.1 TH/MM3 (0-0.4); EOSINOPHIL % 0.3 % (0.0-4.0); HEMATOCRIT 35.8 % (35.0-46.0); HEMO FLAGS DIFF FINAL; LYMPH % 5.6 % (9.0-44.0); LYMPHOCYTE # 0.8 TH/MM3 (1.0-4.8); MEAN CELL VOLUME 92.8 FL (80.0-100.0); MEAN CORPUSCULAR HEMOGLOBIN 28.9 PG (27.0-34.0); MEAN CORPUSCULAR HGB CONC 31.1 % (32.0-36.0); MONO % 4.9 % (0.0-8.0); NEUT % 88.9 % (16.0-70.0); PLATELET COUNT 208 TH/MM3 (150-450); RED BLOOD COUNT 3.86 MIL/MM3 (4.00-5.30); WHITE BLOOD COUNT 14.6 TH/MM3 (4.0-11.0)
[2016-10-31 12:36] LABS: APTT (PATIENT) 27.2 SEC (24.3-30.1); INTERNATIONAL NORMALIZED RATIO 0.9 RATIO; PROTHROMBIN TIME - PATIENT 10.2 SEC (9.8-11.6)
--- NOTE | 2016-10-31 12:50 | HHI.FPPN ---
Problem Problem List: (1) Compression fracture of L5 lumbar vertebra (2) Sacral fracture, closed (3) Stenosis of ureteropelvic junction (UPJ) (4) HTN (hypertension) (5) Fluids/Electrolytes/Nutrition/Prophylaxis Subjective Subjective on exam today patient states her pain is at a tolerable level with her current pain therapy. She is laying stiff and flat in the bed on her back, however and very reluctant to move. She denies any new concerns, CP, sob, landon, cough, no n/v/d/c, no new joint or muscle pain. [facility] Objective Objective Laboratory Tests - Abnormals Test 10/30/16 10/30/16 10/31/16 15:13 16:50 11:58 White Blood Count 15.2 TH/MM3 14.6 TH/MM3 Mean Corpuscular Hemoglobin 31.1 % 31.1 % Concent Neutrophils (%) (Auto) 87.6 % 88.9 % Lymphocytes (%) (Auto) 6.5 % 5.6 % Neutrophils # (Auto) 13.3 TH/MM3 13.0 TH/MM3 Blood Urea Nitrogen 22 MG/DL Estimat Glomerular Filtration 68 ML/MIN Rate Aspartate Amino Transf 48 U/L (AST/SGOT) Alkaline Phosphatase 134 U/L Albumin 3.2 GM/DL Red Blood Count 3.86 MIL/MM3 Hemoglobin 11.1 GM/DL Lymphocytes # (Auto) 0.8 TH/MM3 Vital Signs 10/30/16 10/30/16 10/30/16 10/30/16 13:15 15:00 16:40 17:43 Temp 98.4 Pulse 77 73 82 Resp 16 18 15 B/P 134/63 180/77 154/67 Pulse Ox 95 96 98 O2 Delivery Room Air Nasal Cannula Nasal Cannula O2 Flow Rate 2 2.00 10/30/16 10/30/16 10/31/16 10/31/16 18:07 20:00 00:00 02:00 Temp 96.4 97.8 98.5 Pulse 79 74 70 Resp 18 20 18 B/P 154/67 111/58 116/84 125/58 Pulse Ox 92 95 95 10/31/16 10/31/16 10/31/16 03:05 08:07 08:31 Temp 96.6 Pulse 72 Resp 16 20 B/P 143/67 Pulse Ox 95 92 FiO2 21 INTAKE & OUTPUT 10/31/16 07:00 Output Total 600 ml Balance -600 ml Physical exam O. CONSTITUTIONAL/GEN: normally nourished, appears in pain as she is barely moving in the bed LUNGS: clear A-P, respiratory effort is normal. CARDIOVASCULAR: RR without murmur or gallop. No significant edema. GI/ABD: soft without masses, without organomegaly, good bowel sounds : no CVA tenderness NEURO: No focal deficits. Unable to move due to pain SKIN: color normal, no rashes noted. HEME/LYMPH: no bruising, petechia or significant adenopathy PSYCH/MENTAL STATUS: Alert and oriented x 3. Assessment Assessment: (1) Sacral fracture, closed (2) Compression fracture of L5 lumbar vertebra Plan: Her pain was inadequately controlled overnight and has been adjusted to oxycodoen and diluadid prn for breakthrough. She appears to be tolerating this without sedation or confusion and her pain is much better controlled on this regimen. Will continue this for now. PT and TLSO brace. Neurosurgery to fu on conservative management and consideration for kyphoplasty in a few days if no improvement or unable to mobilize. (3) Stenosis of ureteropelvic junction (UPJ) Plan: Plan: Noted on renal ultrasound 10/29/16. She has a dilated left renal collecting system. No GLORIA or -+urinary symptoms and UA on admission is unremarkable Plan: Monitor kidney function, due to immobility will start some IVF today to make sure she is adequately hydrated. (4) HTN (hypertension) Plan: chronic -- continue her home meds (5) Fluids/Electrolytes/Nutrition/Prophylaxis Plan: Status: Acute Plan: Fluids: tolerating PO but due to immobility and her pain she is at risk for dehydration -- add some low maintenance IVF today Electrolytes: monitor and replete as needed, BMP pending Nutrition: regular diet DVT Prophylaxis: Early ambulation if possible with PT assistance but will cover with Heparin 5000U subQ [id number] SCDs GI Prophylaxis: not indicated Assessment 86 year old with uncontrolled pain due to probable acute to subacute L5 inferior endplate fracture and right sacral insufficiency fracture. She is doing reasonably well with pain control this morning. PLAN PLAN Continue to provide adequate pain control and try to mobilize with PT using the TLSO brace over the next few days. If conservative management does not improve the patients symptoms or she cannot tolerate mobilization then Neurosurgery will evaluate for possible kyphoplasty. Tracie Rust MD Oct 31, 2016 12:50
[2016-10-31 12:54] LABS: BICARBONATE 29.6 MEQ/L (21.0-32.0)
[2016-10-31 13:11] LABS: POTASSIUM 3.9 MEQ/L (3.5-5.1)
[2016-10-31] MEDS: HYDROmorphone HCL PF 1 MG/ML VIAL IV PUSH PRN ×2 (17:18→21:39)
--- NOTE | 2016-10-31 20:36 | HHI.NSPN ---
History Chief Complaint: persistent left gluteal region pain Interval History Pleasant 86-year-old female who states that approximately 4 days ago she developed rapidly progressive severe low back pain without radiation to the lower extremities. She has no significant weakness or numbness in the lower extremities and no complain of bowel or bladder dysfunction. She normally ambulates reasonably well and takes care of her daily activities. However the past 3 or 4 days she has been mostly mobilized in a wheelchair and unable to do things for herself. She presented to the emergency room yesterday, and was diagnosed with a lumbar compression fracture. She was discharged back to the [facility] where she resides, but returned today due to persistent severe pain not resolved with medications. She denies any significant neck pain. No pain weakness or numbness in the upper extremities 10/31/16: Patient complains of primarily focal left gluteal pain when trying to mobilize out of bed. She took only a few steps with physical therapy today Exam Results Vital Signs Date Time Temp Pulse Resp B/P Pulse Ox O2 Delivery O2 Flow Rate FiO2 10/31/16 16:48 97.6 76 20 147/65 95 10/31/16 08:31 21 10/30/16 17:43 Nasal Cannula 2.00 Physical Examination Awake and alert oriented conversant and appropriate No significant tenderness over the thoracic or lumbar midline or paraspinous musculature. No right lateral hip tenderness or thigh tenderness. No significant pain with right hip range of motion. She has rather severe focal tenderness to palpation at the right posterior trochanter and adjacent lateral right gluteal musculature. Sensation intact light touch throughout the lower extremities Strength 5/5 all major flexion and extension groups in the lower extremities No ankle clonus Plantar responses are neutral Lab, Micro, Other Results Laboratory Tests Test 10/31/16 11:58 White Blood Count 14.6 TH/MM3 Red Blood Count 3.86 MIL/MM3 Hemoglobin 11.1 GM/DL Hematocrit 35.8 % Mean Corpuscular Volume 92.8 FL Mean Corpuscular Hemoglobin 28.9 PG Mean Corpuscular Hemoglobin 31.1 % Concent Red Cell Distribution Width 14.0 % Platelet Count 208 TH/MM3 Mean Platelet Volume 9.0 FL Neutrophils (%) (Auto) 88.9 % Lymphocytes (%) (Auto) 5.6 % Monocytes (%) (Auto) 4.9 % Eosinophils (%) (Auto) 0.3 % Basophils (%) (Auto) 0.3 % Neutrophils # (Auto) 13.0 TH/MM3 Lymphocytes # (Auto) 0.8 TH/MM3 Monocytes # (Auto) 0.7 TH/MM3 Eosinophils # (Auto) 0.1 TH/MM3 Basophils # (Auto) 0.0 TH/MM3 CBC Comment DIFF FINAL Differential Comment Prothrombin Time 10.2 SEC Prothromb Time International 0.9 RATIO Ratio Activated Partial 27.2 SEC Thromboplast Time Sodium Level 139 MEQ/L Potassium Level 3.9 MEQ/L Chloride Level 103 MEQ/L Carbon Dioxide Level 29.6 MEQ/L Anion Gap 6 MEQ/L Blood Urea Nitrogen 22 MG/DL Creatinine 0.83 MG/DL Estimat Glomerular Filtration 65 ML/MIN Rate Random Glucose 116 MG/DL Calcium Level 8.9 MG/DL Medical Decision Making Impression and Plan Impression: 1. Acute disc subacute L5 compression fracture with mild loss of height. Probable chronic L1 fracture. 2. Persistent pain which appears to be primarily at the left posterior trochanter and adjacent gluteal musculature. Pain is not elicited with hip active and passive range of motion in this region. The pain could emanate from L5 compression fracture however the presentation is somewhat unusual for this. Plan: Due to the patient's primarily focal left gluteal pain and questionable age of L5 fracture, a MRI of the lumbar spine will be obtained as well as MRI of the left hip and pelvis to determine if there myofascial or other injury as a cause of her pain. Continue physical therapy She has an LSO brace. Discussed at length with the patient and all questions answered. Zack Quezada MD Oct 31, 2016 20:36
[2016-11-01] VITALS (7 sets, daily range): BP systolic 129–175; BP diastolic 60–72; PULSE 69–85; RESP 18–20; TEMP 95.7–98.6; O2SAT 92–96
[2016-11-01] MEDS: SODIUM CHLOR 0.9% 1000 ML INJ 1,000 ML IV SCH ×2 (01:20→13:32)
[2016-11-01] MEDS: oxyCODONE/ACETAMINOPHEN 5 MG/325 MG TAB PO SCH ×4 (02:30→20:10)
--- NOTE | 2016-11-01 08:07 | RADRPT ---
EXAM DATE/TIME: 11/01/2016 07:31 [facility] COMPARISON: MRI LUMBAR SPINE W & W/O CONTRAST, October 29, 2016, 14:43. INDICATIONS : Severe pain left posterior trochanter region following fall 4 days ago. MEDICAL HISTORY : Hypertension. Dementia. Diverticulitis. TIA. Hyperlipidemia. SURGICAL HISTORY : Tubal ligation. ENCOUNTER: Subsequent ACUITY: 4-6 days PAIN SCORE: 6/10 LOCATION: Left hip. TECHNIQUE: Multiplanar, multisequence MRI examination was performed without contrast. FINDINGS: BONE/CARTILAGE: There significant abnormal marrow signal throughout the right sacral ala and left sacroiliac region s uspicious for insufficiency fractures. There is low-grade edema in the right pubic symphysis likely a dditional stress reaction. Articular cartilage signal is within normal limits. LABRUM: Within normal limits. MUSCLES/TENDONS: All of the visualized muscles and tendons are intact. Mild edema in the gluteus minimus muscle. MISCELLANEOUS: No evidence of joint effusion. Sigmoid diverticulosis CONCLUSION: Bony edema suspicious for insufficiency fractures of both sacral ala, left greater than right and th e pubic symphysis. Mild edema of the gluteus minimus muscle. Wade Root MD on November 01, 2016 at 8:01 Board Certified Radiologist. This report was verified electronically.
[2016-11-01] MEDS: RAMIPRIL 5 MG CAP PO SCH ×2 (08:15→20:10)
[2016-11-01] MEDS: amLODIPine BESYLATE 5 MG TAB PO SCH (08:15)
[2016-11-01] MEDS: HEPARIN SODIUM - SQ 10,000 UNITS/ML VIAL SQ SCH ×2 (08:16→20:11)
[2016-11-01] MEDS: DOCUSATE SODIUM 50 MG/SENNA 8.6 MG TAB PO SCH ×2 (08:16→20:11)
[2016-11-01] MEDS: predniSONE 5 MG TAB PO SCH (08:16)
[2016-11-01] MEDS: DONEPEZIL HCL 5 MG TAB PO SCH ×2 (08:16→20:10)
[2016-11-01] MEDS: SODIUM CHLORIDE 0.9% FLUSH 10 ML FLUSH IV FLUSH SCH ×2 (08:16→20:11)
--- NOTE | 2016-11-01 09:14 | HHI.FPPN ---
Subjective Remarks Patient was seen and examined this morning while eating breakfast. She denies fevers, chills, chest pain, shortness of breath, LE pain. She walked 2-3 steps with PT yesterday but did not do more due to the pain. On examination with Dr. Quezada yesterday she has significant point tenderness over bones of the left sacrum and thus MRI was performed, notable for evidence of L>R sacral insufficiency fracture and pubic symphysis. She notes her pain is not significantly different from yesterday and that pain medication does improve the pain, though movement causes it to return. One BM is documented last night but patient doesn't remember this. (Bette Moran MD R1) Objective Vitals Vital Signs Date Time Temp Pulse Resp B/P Pulse Ox O2 Delivery O2 Flow Rate FiO2 11/01/16 08:16 96.6 70 20 175/72 93 11/01/16 04:00 98.4 69 18 167/66 95 11/01/16 00:00 95.7 85 20 171/71 92 10/31/16 20:00 98.1 81 18 133/60 94 10/31/16 16:48 97.6 76 20 147/65 95 10/31/16 12:56 95.8 78 20 117/58 97 I/O 10/31/16 10/31/16 10/31/16 11/01/16 11/01/16 11/01/16 07:00 15:00 23:00 07:00 15:00 23:00 Intake Total 868 ml 281 ml Output Total 600 ml Balance -600 ml 868 ml 281 ml Intake Oral 240 ml 60 ml IV Total 628 ml 221 ml Output Urine Total 600 ml # Voids 7 4 1 # Bowel Movements 1 0 (Bette Moran MD R1) Result Diagram: 10/31/16 1158 10/31/16 1158 Imaging Last Impressions Hip MRI 11/01/16 0000 Signed Impressions: Service Date/Time: Tuesday, November 01, 2016 07:31 - CONCLUSION: Bony edema suspicious for insufficiency fractures of both sacral ala, left greater than right and the pubic symphysis. Mild edema of the gluteus minimus muscle. Wade Root MD Objective Remarks GENERAL: thin, alert, elderly female in no apparent distress, eating breakfast. Lying almost supine doing this; HOB was elevated to approx 45 degree angle with minimal pain SKIN: Warm and dry. No rashes. HEAD: Atraumatic. Normocephalic. EYES: Pupils equal and round. No scleral icterus. No injection or drainage. ENT: No nasal bleeding or discharge. Mucous membranes pink and moist. NECK: Trachea midline. No JVD. CARDIOVASCULAR: Regular rate and rhythm. No murmurs. RESPIRATORY: No accessory muscle use. Clear to auscultation anteriorly and in upper posterior lung ibarra. Breath sounds equal bilaterally. GASTROINTESTINAL: Abdomen soft, non-tender, nondistended. +BS, active. MUSCULOSKELETAL: Extremities without clubbing, cyanosis, or edema. No obvious deformities. Buttocks and hip bony structures not tender to palpation NEUROLOGICAL: Awake and alert. No obvious cranial nerve deficits. Normal speech. She is moving all extremities without difficulty. PSYCHIATRIC: Appropriate mood and affect; insight and judgment normal. Medications and IVs Inpatient Medications Acetaminophen (Tylenol) 650 mg Q4H PRN PO TEMP > 100.4; Start 10/30/16 at 17:00 Acetaminophen/ Hydrocodone Bitart (Austin 5-325 Mg) 1 tab Q4H PRN PO PAIN SCALE 3 TO 5; Start 10/30/16 at 17:15; Stop 10/31/16 at 07:20; Status DC Acetaminophen/ Hydrocodone Bitart (Austin 7.5-325 Mg) 1 tab Q4H PRN PO PAIN SCALE 6 TO 10 Last administered on 10/31/16 07:10; Start 10/30/16 at 17:15; Stop 10/31/16 at 07:20; Status DC Amlodipine Besylate (Norvasc) 2.5 mg DAILY PO Last administered on 11/01/16 08: 15; Start 10/31/16 at 09:00 Aspirin (Aspirin) 325 mg DAILY PO ; Start 10/31/16 at 09:00; Stop 10/31/16 at 09: 00; Status DC Bisacodyl (Dulcolax Supp) 10 mg DAILY PRN RECTAL SEVERE CONSITIPATION; Start at 17:00 Clonidine (Catapres) 0.1 mg Q6H PRN PO SBP> OR = 180, DBP> OR = 100; Start 10/31 at 02:15 Donepezil HCl (Aricept) 10 mg BID PO Last administered on 11/01/16 08:16; Start 10/31/16 at 09:00 Heparin Sodium (Porcine) (Heparin Inj) 5,000 units Q12HR SQ Last administered on 11/01/16 08:16; Start 10/31/16 at 09:00 Hydromorphone HCl (Dilaudid Pf Inj) 0.5 mg ONCE ONCE IV Last administered on 08:15; Start 10/31/16 at 07:15; Stop 10/31/16 at 07:22; Status DC Hydromorphone HCl 0.5 mg 0.5 mg Q4H PRN IV PUSH BREAKTHROUGH PAIN Last administered on 11/01/16 09:45; Start 10/31/16 at 12:00 Lactulose (Lactulose Liq) 30 ml DAILY PRN PO SEVERE CONSITIPATION; Start at 17:00 Magnesium Hydroxide (Milk Of Magnesia Liq) 30 ml Q12H PRN PO MILD - MODERATE CONSTIPATION; Start 10/30/16 at 17:00 Miscellaneous (Pill Splitter) 1 ea UNSCH PRN OTHER SEE LABEL COMMENTS; Start at 02:15 Morphine Sulfate (Morphine Inj) 4 mg Q3H PRN IV BREAKTHROUGH PAIN Last administered on 10/31/16 03:00; Start 10/30/16 at 17:15; Stop 10/31/16 at 11:52; Status DC Naloxone HCl (Narcan Inj) 0.4 mg UNSCH PRN IV SEE LABEL COMMENTS; Start at 07:15 Ondansetron HCl (Zofran Inj) 4 mg Q6H PRN IVP NAUSEA OR VOMITING; Start at 17:00 Oxycodone/ Acetaminophen (Percocet 5-325 Mg) 1 tab Q6H PO Last administered on 11/01/16 12:30; Start 10/31/16 at 08:00 Prednisone (Deltasone) 5 mg DAILY PO Last administered on 11/01/16 08:16; Start 10/31/16 at 09:00 Raloxifene HCl (Evista) 60 mg DAILY PO ; Start 10/31/16 at 09:00; Stop 10/31/16 at 14:37; Status DC Ramipril (Altace) 10 mg BID PO Last administered on 11/01/16 08:15; Start at 02:15 Senna/Docusate Sodium (Shannon-Colace) 1 tab BID PO Last administered on 11/01/16 08:16; Start 10/30/16 at 21:00 Sennosides (Senokot) 17.2 mg Q12H PRN PO MODERATE - SEVERE CONSTIPATION; Start 10/30/16 at 17:00 Sodium Chloride (NS 1000 ml Inj) 1,000 ml @ 75 mls/hr [id number] IV Last administered on 10/31/16 12:00; Start 10/31/16 at 12:00 Sodium Chloride (NS Flush) 2 ml BID IV FLUSH Last administered on 11/01/16 08: 16; Start 10/30/16 at 21:00 (Bette Moran MD R1) Urinary Catheter: No (Bette Moran MD R1) Vascular Central Line Catheter: No (Bette Moran MD R1) A/P Assessment and Plan Patient is an 86-year-old female admitted for intractable pain related to lower back subacute compression fractures. She is admitted for pain control and possible surgical management. Discharge Planning Unknown, possibly 2-3 days. May become a surgical candidate during hospital stay. Pending recommendations from neurosurgery. She was admitted from an [facility]. Possibly may need to be discharged to a SNF. Case management was consulted (Bette Moran MD R1) Attending Attestation Patient seen and examined. Case reviewed and discussed with the resident team. Agree with plan of care as discussed with me and documented in the resident note. (Tracie Rust MD) Problem List: (1) Compression fracture of L5 lumbar vertebra Status: Acute Plan: Plan: * Low vitamin D - will start D3 1000U daily PO * Continue TLSO brace * Physical therapy * Continue pain control with Percocet 5/235mg scheduled, Dilaudid IV for breakthrough pain (0.5mg). Tolerating this well, last BM 11/01/16 in the evening * She is also on prednisone 5mg daily, per her [facility] records this was possibly initiated 10/15/2016. Unknown why she is taking this. Would likely benefit from taper off * Assist with bathroom needs at bedside. She is using an adult diaper at this time and not requiring a Ly. * Await Neurosurgery recommendations Hospital Course: * Admitted for intractable pain related to lower back subacute compression fracture. She has history of osteoarthritis and osteoporosis per report * Pain control with Austin 5/235mg for pain 1-5, 7.5/325 for 6-10, Morphine 4mg IV q3hr prn breakthrough initially, did not help * Consulted neurosurgery for evaluation of surgical management, as patient is interested in this given the severity of her pain and non-resolution with conservative management. NS will consider surgical intervention, recommending conservative therapy and PT now * Low vitamin D 14.8. Initiated supplementation by mouth at 1000U daily on * Calcium level normal on admission * Of note, patient is on raloxifene, likely for her osteoporosis. Holding while inpatient * PTH ordered to assess parathyroid fx * Phosphorus ordered * Daughter (POA) was updated on plan of care 11/01/16 by phone at patient's request (2) Vitamin D insufficiency Status: Acute Plan: Plan: * start vitamin D oral supplementation. Possible contributing to weakness in bones Hospital Course: * Low vitamin D 14.8 noted on 11/01/2016. Initiated supplementation by mouth at 1000U daily on 11/01/16 (3) Sacral insufficiency fracture Status: Acute Plan: Noted on imaging 10/29/16 and MRI 11/01/16. 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 She has a dilated left renal collecting system. * No GLORIA, no urinary symptoms, UA on admission is unremarkable aside from mild elevation of ketones (5) HTN (hypertension) Status: Chronic Plan: Continue home ramipril 10 mg twice a day. Give when necessary clonidine as needed for BP > 180/100 (6) Fluids/Electrolytes/Nutrition/Prophylaxis Status: Acute Plan: Fluids: tolerating PO Electrolytes: monitor and replete as needed, BMP pending Nutrition: regular diet DVT Prophylaxis: Early ambulation. Heparin 5000U subQ [id number] SCDs GI Prophylaxis: not indicated (Bette Moran MD R1) Problem Qualifiers (1) Compression fracture of L5 lumbar vertebra: Qualified Code: S32.050D - Compression fracture of L5 lumbar vertebra, with routine healing, subsequent encounter Bette Moran MD R1 Nov 01, 2016 09:14 Tracie Rust MD Nov 02, 2016 09:29
[2016-11-01] MEDS: HYDROmorphone HCL PF 1 MG/ML VIAL IV PUSH PRN ×2 (09:45→21:32)
[2016-11-01] MEDS: CHOLECALCIFEROL (VIT D3) 1000 UNIT TAB PO SCH (13:34)
--- NOTE | 2016-11-01 13:51 | HHI.NSPN ---
History Chief Complaint: persistent left gluteal region pain Interval History Pleasant 86-year-old female who states that approximately 4 days ago she developed rapidly progressive severe low back pain without radiation to the lower extremities. She has no significant weakness or numbness in the lower extremities and no complain of bowel or bladder dysfunction. She normally ambulates reasonably well and takes care of her daily activities. However the past 3 or 4 days she has been mostly mobilized in a wheelchair and unable to do things for herself. She presented to the emergency room yesterday, and was diagnosed with a lumbar compression fracture. She was discharged back to the [facility] where she resides, but returned today due to persistent severe pain not resolved with medications. She denies any significant neck pain. No pain weakness or numbness in the upper extremities 10/31/16: Patient complains of primarily focal left gluteal pain when trying to mobilize out of bed. She took only a few steps with physical therapy today 11/01/16: Continues to be very painful across the low back and left gluteal region. Unable to mobilize out of bed without significant pain Exam Results Vital Signs Date Time Temp Pulse Resp B/P Pulse Ox O2 Delivery O2 Flow Rate FiO2 11/01/16 11:44 97.2 73 20 129/60 96 11/01/16 10:42 21 10/30/16 17:43 Nasal Cannula 2.00 Intake and Output 10/31/16 10/31/16 11/01/16 08:00 16:00 00:00 Intake Total 868 ml Output Total 600 ml Balance -600 ml 868 ml Physical Examination Awake and alert oriented conversant and appropriate No significant tenderness over the thoracic or lumbar midline or paraspinous musculature. No right lateral hip tenderness or thigh tenderness. No significant pain with right hip range of motion. She has rather severe focal tenderness to palpation at the right posterior trochanter and adjacent lateral right gluteal musculature. Sensation intact light touch throughout the lower extremities Strength 5/5 all major flexion and extension groups in the lower extremities No ankle clonus Plantar responses are neutral Lab, Micro, Other Results 11/01/16 MRI hip images and report reviewed. Hip MRI 11/01/16 0000 Signed Impressions: Service Date/Time: Tuesday, November 01, 2016 07:31 - CONCLUSION: Bony edema suspicious for insufficiency fractures of both sacral ala, left greater than right and the pubic symphysis. Mild edema of the gluteus minimus muscle. Wade Root MD Laboratory Tests Test 11/01/16 11/01/16 06:12 11:58 25-Hydroxy Vitamin D Total 14.8 ng/ML Phosphorus Level 2.9 MG/DL Medical Decision Making Impression and Plan Impression: 1. Acute disc subacute L5 compression fracture with mild loss of height. Probable chronic L1 fracture. 2. Persistent pain which appears to be primarily at the left posterior trochanter and adjacent gluteal musculature. Pain is not elicited with hip active and passive range of motion in this region. The pain could emanate from L5 compression fracture however the presentation is somewhat unusual for this. Possible pain related to sacral insufficiency fractures. MRI left hip also reveals mild left gluteal muscular strain. Plan: Findings were discussed awake with the patient today as well as with her daughter on the telephone. Options of conservative treatment versus kyphoplasty for the L5 compression fracture has been discussed along with risks, possible complications, prognosis. I advised them that I cannot be certain whether the majority of her pain is related to the L5 compression fracture or the sacral insufficiency fractures. She may also have a component of myofascial pain in the left hip. Given the above-noted factors, there may be a somewhat diminished chance of success with the kyphoplasty, however it may help to prevent further progression of the L5 compression fracture. She appears to understand all the above. She is going to discuss this further with her daughter before making a final decision as to how she wishes to proceed , however the patient's daughter indicates that they will likely elect to proceed with kyphoplasty. Taking this into consideration, the patient will be kept nothing by mouth after midnight for possible surgery in the morning, and I will discuss this further with her tomorrow. Continue physical therapy She has an LSO brace. Zack Quezada MD Nov 01, 2016 13:51
[2016-11-02] VITALS (7 sets, daily range): BP systolic 124–152; BP diastolic 57–70; PULSE 75–95; RESP 18–20; TEMP 96.3–97.8; O2SAT 92–96
[2016-11-02] MEDS: SODIUM CHLOR 0.9% 1000 ML INJ 1,000 ML IV SCH ×3 (00:01→20:01)
[2016-11-02] MEDS: oxyCODONE/ACETAMINOPHEN 5 MG/325 MG TAB PO SCH ×4 (02:33→20:37)
[2016-11-02] MEDS: HYDROmorphone HCL PF 1 MG/ML VIAL IV PUSH PRN (06:31)
[2016-11-02] MEDS: predniSONE 5 MG TAB PO SCH (07:42)
[2016-11-02] MEDS: CHOLECALCIFEROL (VIT D3) 1000 UNIT TAB PO SCH (07:42)
[2016-11-02] MEDS: DONEPEZIL HCL 5 MG TAB PO SCH ×2 (07:42→20:37)
[2016-11-02] MEDS: amLODIPine BESYLATE 5 MG TAB PO SCH (07:42)
[2016-11-02] MEDS: RAMIPRIL 5 MG CAP PO SCH ×2 (07:42→20:37)
[2016-11-02] MEDS: DOCUSATE SODIUM 50 MG/SENNA 8.6 MG TAB PO SCH ×2 (07:42→20:37)
[2016-11-02] MEDS: HEPARIN SODIUM - SQ 10,000 UNITS/ML VIAL SQ SCH ×2 (07:43→20:37)
[2016-11-02] MEDS: SODIUM CHLORIDE 0.9% FLUSH 10 ML FLUSH IV FLUSH SCH ×2 (07:43→20:39)
--- NOTE | 2016-11-02 11:06 | HHI.NSPN ---
(Nicolás Tran) History Chief Complaint: Low back pain controlled since not moving (Nicolás Tran) Interval History 10/30: Pleasant 86-year-old female who states that approximately 4 days ago she developed rapidly progressive severe low back pain without radiation to the lower extremities. She has no significant weakness or numbness in the lower extremities and no complain of bowel or bladder dysfunction. She normally ambulates reasonably well and takes care of her daily activities. However the past 3 or 4 days she has been mostly mobilized in a wheelchair and unable to do things for herself. She presented to the emergency room yesterday, and was diagnosed with a lumbar compression fracture. She was discharged back to the [facility] where she resides, but returned today due to persistent severe pain not resolved with medications. She denies any significant neck pain. No pain weakness or numbness in the upper extremities 10/31: Patient complains of primarily focal left gluteal pain when trying to mobilize out of bed. She took only a few steps with physical therapy today 11/01: Continues to be very painful across the low back and left gluteal region. Unable to mobilize out of bed without significant pain 11/02: Patient still with pain to the low back which is controlled since she is not moving. When asked if she wishes to proceed with the kyphoplasty today the patient answered in the affirmative. (Nicolás Tran) System Review Comments Constitutional: Patient denies any fever or chills. Respiratory: Patient denies any shortness of breath or productive cough. Cardiovascular: Patient denies any chest pain, palpitations or irregular heartbeat. Gastrointestinal: Patient denies any abdominal pain, nausea, vomiting or incontinence of stool. Genitourinary: Patient denies any incontinence of urine. Musculoskeletal: Patient complains of back & left gluteal/hip pain. Neurologic: Patient denies any headache, dizziness, numbness or tingling. ( Nicolás Tran) Exam Results Vital Signs Date Time Temp Pulse Resp B/P Pulse Ox O2 Delivery O2 Flow Rate FiO2 11/02/16 08:41 97.4 77 20 141/61 96 11/01/16 10:42 21 10/30/16 17:43 Nasal Cannula 2.00 Intake and Output 11/01/16 11/01/16 11/02/16 08:00 16:00 00:00 Intake Total 281 ml 360 ml Balance 281 ml 360 ml (Nicolás Tran) Physical Examination GENERAL: No apparent distress, readily interacts, smiles, normal affect. HEENT: Normocephalic, atraumatic. NECK: No JVD, trachea midline. CARDIOVASCULAR: S1S2 w/RRR w/o M/G/R, radial & pedal pulses 2+ bilaterally, no pedal edema. RESPIRATORY: CTAB w/o W/R/R, equal excursion, nonlaboured, on RA. GASTROINTESTINAL: Abdomen soft, nontender, positive bowel sounds. MUSCULOSKELETAL: FIGUEROA but pain with movement of bilateral hips, TTP to mid lumbar & paraspinals INTEGUMENTARY: Warm & dry, no evident discolouration, ulcerations, rashes or other lesions noted. NEUROLOGICAL: AA&Ox3 Speech clear & appropriated Follows simple commands w/o difficulty. Sensation intact to light touch to both lower extremities Motor strength 4+ to 5/5 to all major flexion & extension muscle groups to bilateral lower extremities, limiting factor appears to be pain (Nicolás Tran) Medical Decision Making Impression and Plan Impression: 1. Acute disc subacute L5 compression fracture with mild loss of height. Probable chronic L1 fracture. 2. Persistent pain which appears to be primarily at the left posterior trochanter and adjacent gluteal musculature. Pain is not elicited with hip active and passive range of motion in this region. The pain could emanate from L5 compression fracture however the presentation is somewhat unusual for this. 3. Evidence of right sacral insufficiency fracture on MRI of 10/29/16 4. Hypertension Plan: Plan of care discussed with patient Plan to take patient for L5 kyphoplasty today Mobilise patient with assistance LSO brace when OOB PT eval & tx Pain control (Nicolás Tran) Attending Statement I have personally seen and examined the patient on the date of this note. Pertinent documentation and study results have been reviewed by the undersigned. I have personally developed the treatment plan and performed medical decision making. Agree with findings, exam, and treatment plan as noted above. Patient remains with stable neurologic exam. She is scheduled for L5 kyphoplasty today (Zack Quezada MD) Nicolás Tran Nov 02, 2016 11:06 Zack Quezada MD Nov 03, 2016 11:55
[2016-11-02] MEDS ORDERED: PROPOFOL 200 MG/20 ML AMP IV ONE (12:00)
[2016-11-02] MEDS ORDERED: ONDANSETRON HCL 4 MG/2 ML VIAL IV PUSH ONE (12:00)
[2016-11-02] MEDS ORDERED: NEOSTIGMINE 3 MG/3 ML SYR IV ONE (12:00)
[2016-11-02] MEDS ORDERED: PHENYLEPH/NS 1000 MCG/10 ML SYR IV ONE (12:00)
[2016-11-02] MEDS ORDERED: FAMOTIDINE 20 MG/2 ML VIAL ONE (13:14)
[2016-11-02] MEDS ORDERED: MIDAZOLAM HCL 2 MG/2 ML VIAL ONE (13:14)
[2016-11-02] MEDS ORDERED: DEXAMETHASONE SOD PHOS 4 MG/ML VIAL ONE (13:14)
[2016-11-02] MEDS ORDERED: ACETAMINOPHEN 1000 MG/100 ML VIAL IV ONE (13:15)
[2016-11-02] MEDS ORDERED: IOHEXOL 350 MG/ML 50 ML BTL (for RAD DIAG) ONE (14:12)
[2016-11-02] MEDS ORDERED: LIDOCAINE 1%/EPINEPHrine 1:100,000 SOLN 20 ML VIAL INFIL ONE (14:12)
[2016-11-02] MEDS ORDERED: fentaNYL CITRATE 250 MCG/5 ML AMP ONE (15:03)
--- NOTE | 2016-11-02 15:15 | RADRPT ---
EXAM DATE/TIME: 11/02/2016 14:10 [facility] COMPARISON: No previous studies available for comparison. INDICATIONS : L5 Kyphoplasty. MEDICAL HISTORY : Hypertension. Stroke. SURGICAL HISTORY : None. ENCOUNTER: Initial ACUITY: 1 day PAIN SCORE: Non-responsive. LOCATION: Lumbar spine. FINDINGS: There is evidence for vertebroplasty of L5. CONCLUSION: L5 vertebroplasty. Hilario Bermudez MD on November 02, 2016 at 15:13 Board Certified Radiologist. This report was verified electronically.
--- NOTE | 2016-11-02 16:16 | HHI.FPPN ---
Subjective Remarks Patient was seen and evaluated this morning. She was laying in bed, not willing to move. She confirmed that neurosurgery was planning on taking her to the OR later today. She has been NPO since midnight. She admits to pain, mainly in her left buttocks. She denies chest pain, heart palpitations, shortness of breath, nausea, vomiting, diarrhea and constipation. (Elma Lopez MD R1) Objective Vitals Vital Signs Date Time Temp Pulse Resp B/P Pulse Ox O2 Delivery O2 Flow Rate FiO2 11/02/16 12:00 97.1 86 18 126/58 96 11/02/16 10:00 92 11/02/16 08:41 97.4 77 20 141/61 96 11/02/16 04:00 96.3 75 20 145/66 95 11/02/16 00:00 96.7 88 20 152/70 94 11/01/16 20:00 98.6 84 18 135/63 92 11/01/16 16:13 97.1 76 20 132/63 96 I/O 11/01/16 11/01/16 11/01/16 11/02/16 11/02/16 11/02/16 07:00 15:00 23:00 07:00 15:00 23:00 Intake Total 281 ml 360 ml Balance 281 ml 360 ml Intake Oral 60 ml 360 ml IV Total 221 ml 0 ml # Voids 1 3 3 # Bowel Movements 0 (Elma Lopez MD R1) Result Diagram: 10/31/16 1158 10/31/16 1158 Imaging Last Impressions Lumbar Spine X-Ray 11/02/16 0000 Signed Impressions: Service Date/Time: Wednesday, November 02, 2016 14:10 - CONCLUSION: L5 vertebroplasty. Hilario Bermudez MD Hip MRI 11/01/16 0000 Signed Impressions: Service Date/Time: Tuesday, November 01, 2016 07:31 - CONCLUSION: Bony edema suspicious for insufficiency fractures of both sacral ala, left greater than right and the pubic symphysis. Mild edema of the gluteus minimus muscle. Wade Root MD Objective Remarks GENERAL: Thin, alert, elderly female in obvious pain. She was laying stiff, not willing to move. SKIN: Warm and dry. No rashes. HEAD: Atraumatic. Normocephalic. EYES: Pupils equal and round. No scleral icterus. No injection or drainage. ENT: No nasal bleeding or discharge. Mucous membranes pink and moist. NECK: Trachea midline. No JVD. CARDIOVASCULAR: Regular rate and rhythm. No murmurs. RESPIRATORY: No accessory muscle use. Clear to auscultation anteriorly. Breath sounds equal bilaterally. GASTROINTESTINAL: Abdomen soft, non-tender, nondistended. +BS, active. MUSCULOSKELETAL: Extremities without clubbing, cyanosis, or edema. No obvious deformities. NEUROLOGICAL: Awake and alert. No obvious cranial nerve deficits. Normal speech. PSYCHIATRIC: Appropriate mood and affect; insight and judgment normal. Procedures Kyphoplasty performed today. Medications and IVs Current Medications Medications (Trade) Dose Ordered Sig/Paramjit Route Start Time Stop Time Status Last Admin (NS Flush) 2 ml UNSCH PRN IV FLUSH 10/30/16 17:00 (NS Flush) 2 ml BID IV FLUSH 10/30/16 21:00 11/02/16 07:43 (Tylenol) 650 mg Q4H PRN PO 10/30/16 17:00 (Zofran Inj) 4 mg Q6H PRN IVP 10/30/16 17:00 (Shannon-Colace) 1 tab BID PO 10/30/16 21:00 11/02/16 07:42 (Milk Of Magnesia Liq) 30 ml Q12H PRN PO 10/30/16 17:00 (Senokot) 17.2 mg Q12H PRN PO 10/30/16 17:00 (Dulcolax Supp) 10 mg DAILY PRN RECTAL 10/30/16 17:00 (Lactulose Liq) 30 ml DAILY PRN PO 10/30/16 17:00 (Norvasc) 2.5 mg DAILY PO 10/31/16 09:00 11/02/16 07:42 (Deltasone) 5 mg DAILY PO 10/31/16 09:00 11/02/16 07:42 (Aricept) 10 mg BID PO 10/31/16 09:00 11/02/16 07:42 (Altace) 10 mg BID PO 10/31/16 02:15 11/02/16 07:42 (Pill Splitter) 1 ea UNSCH PRN OTHER 10/31/16 02:15 (Catapres) 0.1 mg Q6H PRN PO 10/31/16 02:15 (Heparin Inj) 5,000 units Q12HR SQ 10/31/16 09:00 11/01/16 20:11 (Percocet 5-325 Mg) 1 tab Q6H PO 10/31/16 08:00 11/02/16 12:17 (Narcan Inj) 0.4 mg UNSCH PRN IV 10/31/16 07:15 (Dilaudid Pf Inj) 0.5 mg Q4H PRN IV PUSH 10/31/16 12:00 11/02/16 06:31 Cholecalciferol 1000 units 1,000 units DAILY PO 11/01/16 14:00 11/02/16 07:42 (NS 1000 ml Inj) 1,000 ml @ 100 mls/hr Q10H IV 11/02/16 00:01 (Elma Lopez MD R1) Urinary Catheter: No (Elma Lopez MD R1) Vascular Central Line Catheter: No (Elma Lopez MD R1) A/P Assessment and Plan Patient is an 86-year-old female admitted for intractable pain related to lower back subacute compression fractures. She is admitted for pain control and possible surgical management. Discharge Planning Unknown. Length of stay to be determined following kyphoplasty performed by neurosurgery today. She was admitted from an [facility]. Possibly may need to be discharged to a SNF. Case management was consulted (Elma Lopez MD R1) Attending Attestation The exam, history, and the medical decision-making described in the above note were completed with the assistance of the resident physician. I reviewed and agree with the findings presented. I attest that I had a [id number] encounter with the patient on the same day, and personally performed and documented my assessment and findings in the medical record. (Tracie Rust MD) Problem List: (1) Compression fracture of L5 lumbar vertebra Status: Acute Plan: Plan: * Kyphoplasty performed by neurosurgery today. * Low vitamin D - will start D3 1000U daily PO. * Continue TLSO brace. * Physical therapy. * Continue pain control with Percocet 5-325mg scheduled, Dilaudid 0.5 mg IV for breakthrough pain. Tolerating this well; last BM 11/01/16 in the evening. * She is also on prednisone 5mg daily, per her [facility] records. This was possibly initiated 10/15/2016. Unknown why she is taking this. Would likely benefit from taper off. * Assist with bathroom needs at bedside. She is using an adult diaper at this time and not requiring a Ly. Hospital Course: * Admitted for intractable pain related to lower back subacute compression fracture. She has history of osteoarthritis and osteoporosis per report. * Pain control with [place] 5-325mg for pain 1-5, 7.5-325 for 6-10, Morphine 4mg IV q3hr prn breakthrough initially, did not help. * Consulted neurosurgery for evaluation of surgical management, as patient is interested in this given the severity of her pain and non-resolution with conservative management. * Low vitamin D 14.8. Initiated supplementation by mouth at 1000U daily on . * Calcium level normal on admission. * Of note, patient is on raloxifene, likely for her osteoporosis. Holding while inpatient. * PTH ordered to assess parathyroid fx - PTH level normal (38.8) on 11/01/16. * Phosphorus ordered - Phosphorus level normal (2.9) on 11/01/16. * Daughter (POBette) was updated on plan of care 11/01/16 by phone at patient's request. (2) Vitamin D insufficiency Status: Acute Plan: Plan: * Start Vitamin D oral supplementation. Possible contributing to weakness in bones. Hospital Course: * Low vitamin D 14.8 noted on 11/01/2016. Initiated supplementation by mouth at 1000U daily on 11/01/16. (3) Sacral insufficiency fracture Status: Acute Plan: Noted on imaging 10/29/16 and MRI 11/01/16. Additionally patient has pubic symphysis insufficiency fracture. 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 BUN 22H and Cr 0.8 on 10/31/16. * Continue hydration by mouth for now. Hospital Course: * Noted on renal ultrasound 10/29/16. She has a dilated left renal collecting system. * No GLORIA, no urinary symptoms, UA on admission is unremarkable aside from mild elevation of ketones. (5) HTN (hypertension) Status: Chronic Plan: Continue home ramipril 10 mg twice a day. Give when necessary clonidine as needed for BP > 180/100. (6) Fluids/Electrolytes/Nutrition/Prophylaxis Status: Acute Plan: Fluids: * Tolerating PO Electrolytes: * Monitor and replete as needed. Nutrition: * Regular diet DVT Prophylaxis: * Early ambulation. * Heparin 5000U subQ q12hr. * Bilateral SCDs. GI Prophylaxis: * Started Ranitidine 150 mg PO daily since patient is on prednisone. (Elma Lopez MD R1) Problem Qualifiers (1) Compression fracture of L5 lumbar vertebra: Qualified Code: S32.050D - Compression fracture of L5 lumbar vertebra, with routine healing, subsequent encounter Elma Lopez MD R1 Nov 02, 2016 16:16 Tracie Rust MD Nov 03, 2016 08:35
--- NOTE | 2016-11-02 19:10 | PD.OP ---
Operative Report Date of Surgery: Nov 02, 2016 Preoperative Diagnosis: (1) Compression fracture of L5 lumbar vertebra L5 compression fracture Postoperative Diagnosis: (1) Compression fracture of L5 lumbar vertebra L5 compression fracture. Persistent severe pain with ambulation not controlled with medications. Procedure: L5 kyphoplasty Use of intraoperative biplanar C-arm imaging for needle cannula placement and monitoring of kyphoplasty cement injection. Anesthesia: Gen. Surgeon: Zack Quezada [employer] Porter(s): Lala Heredia Operation and Findings: Procedure in detail: Patient was brought him to the operating room and general endotracheal anesthesia induced without difficulty. Lines were established per anesthesia. Ly catheter was in place AISHA hose and sequential compression devices were in place The patient was placed in prone position on the concentric Raffaele table with the side bolsters and all extremities appropriately padded The thoracic and lumbar regions were prepped and draped in a sterile fashion Appropriate timeout procedure was performed without personal present and in agreement AP and lateral C-arm images were used throughout the procedure to determine the kyphoplasty needle placement and to monitor the balloon dilation and cement injection. The procedure was performed at the L5 level. Using the C-arm imaging and preoperative imaging studies to determine the entry point and trajectory, the kyphoplasty needle was advanced on each side through a small skin incision infiltrated with 1% Xylocaine. The needle was docked at the superior lateral quadrant of the bilateral L5 pedicles and advanced into the vertebral body taking care not to traverse the medial aspect of the pedicle on AP imaging until the tip of the needle was approximately 30% into the vertebral body on lateral imaging. The balloons were then inflated with C-arm monitoring. The cement was mixed and allowed to harden to sufficient consistency for injection. The kyphoplasty balloons were deflated and removed and the cement was injected through the needle cannula on each side using C-arm monitoring. Once the appropriate filling of the vertebral body void was accomplished, the needle cannulas were removed, with the inner stylette used to tamp down the cement into the body as the cannula was withdrawn. Final AP and lateral C-arm images were obtained and felt to be satisfactory. The small incisions were closed with Mastisol and Steri-Strips with a Primapore dressing. The patient was taken to recovery room stable condition. Estimated blood loss was 2 cc No specimen was sent to pathology. Zack Quezada MD Nov 02, 2016 19:10
[2016-11-02] MEDS ORDERED: DO NOT ADM ANY ANTICOAGULANT DRUGS PRN (19:15)
[2016-11-03] VITALS (7 sets, daily range): BP systolic 131–158; BP diastolic 60–70; PULSE 73–94; RESP 2–20; TEMP 96–98.1; O2SAT 93–96
[2016-11-03] MEDS: oxyCODONE/ACETAMINOPHEN 5 MG/325 MG TAB PO SCH ×4 (01:23→20:49)
[2016-11-03] MEDS: HYDROmorphone HCL PF 1 MG/ML VIAL IV PUSH PRN ×5 (02:15→22:39)
[2016-11-03] MEDS: SODIUM CHLOR 0.9% 1000 ML INJ 1,000 ML IV SCH ×2 (03:30→16:01)
[2016-11-03 07:59] LABS: AUTOMATED NEUTROPHIL # 11.6 TH/MM3 (1.8-7.7); BASOPHIL % 0.2 % (0.0-2.0); HEMATOCRIT 33.3 % (35.0-46.0); HEMO FLAGS DIFF FINAL; LYMPH % 7.8 % (9.0-44.0); LYMPHOCYTE # 1.1 TH/MM3 (1.0-4.8); MEAN CELL VOLUME 90.9 FL (80.0-100.0); MEAN CORPUSCULAR HEMOGLOBIN 29.4 PG (27.0-34.0); MEAN CORPUSCULAR HGB CONC 32.3 % (32.0-36.0); MONO % 6.6 % (0.0-8.0); NEUT % 85.4 % (16.0-70.0); PLATELET COUNT 237 TH/MM3 (150-450); RED BLOOD COUNT 3.67 MIL/MM3 (4.00-5.30); RED CELL DISTRIBUTION WIDTH 13.7 % (11.6-17.2); WHITE BLOOD COUNT 13.6 TH/MM3 (4.0-11.0)
[2016-11-03 08:18] LABS: ANION GAP 8 MEQ/L (5-15); AST (GOT) 27 U/L (15-37); BICARBONATE 27.4 MEQ/L (21.0-32.0); BLOOD UREA NITROGEN 21 MG/DL (7-18); CHLORIDE 102 MEQ/L (98-107); GLOMERULAR FILTRATION RATE 92 ML/MIN (>89); POTASSIUM 4.1 MEQ/L (3.5-5.1); SODIUM (NA) 137 MEQ/L (136-145)
[2016-11-03 08:19] LABS: ALT (GPT) 20 U/L (10-53)
[2016-11-03] MEDS: predniSONE 5 MG TAB PO SCH (08:19)
[2016-11-03] MEDS: CHOLECALCIFEROL (VIT D3) 1000 UNIT TAB PO SCH (08:19)
[2016-11-03] MEDS: FAMOTIDINE 20 MG TAB PO SCH (08:19)
[2016-11-03] MEDS: RAMIPRIL 5 MG CAP PO SCH ×2 (08:19→20:49)
[2016-11-03] MEDS: DONEPEZIL HCL 5 MG TAB PO SCH ×2 (08:19→20:48)
[2016-11-03] MEDS: amLODIPine BESYLATE 5 MG TAB PO SCH (08:19)
[2016-11-03] MEDS: HEPARIN SODIUM - SQ 10,000 UNITS/ML VIAL SQ SCH ×2 (08:19→20:49)
[2016-11-03] MEDS: DOCUSATE SODIUM 50 MG/SENNA 8.6 MG TAB PO SCH ×2 (08:19→20:49)
[2016-11-03] MEDS: SODIUM CHLORIDE 0.9% FLUSH 10 ML FLUSH IV FLUSH SCH ×2 (08:20→20:49)
[2016-11-03 08:21] LABS: ALKALINE PHOSPHATASE 121 U/L (45-117); TOTAL BILIRUBIN ADULT 0.5 MG/DL (0.2-1.0)
--- NOTE | 2016-11-03 09:02 | HHI.FPPN ---
Subjective Remarks Patient was seen and examined this morning. She states that the surgery went well. She reports she has significant pain in the lower back and she is due for her medications. She states that Dilaudid is working well to control her pain. Denies chest pain, shortness of breath, nausea, vomiting, diarrhea, constipation. She is hungry this morning. (Bette Moran MD R1) Objective Vitals Vital Signs Date Time Temp Pulse Resp B/P Pulse Ox O2 Delivery O2 Flow Rate FiO2 11/03/16 08:00 98.1 75 18 147/67 95 11/03/16 04:00 96.0 94 20 158/70 11/03/16 00:00 96.9 91 20 152/68 96 11/02/16 20:00 97.8 95 20 130/64 93 11/02/16 16:49 97.7 91 18 124/57 94 11/02/16 16:30 96 14 112/56 100 Nasal Cannula 2 11/02/16 16:00 97 14 115/56 100 Nasal Cannula 2 11/02/16 15:45 100 14 111/53 100 Nasal Cannula 2 11/02/16 15:30 104 14 103/53 100 Nasal Cannula 2 11/02/16 15:15 111 14 122/56 100 Nasal Cannula 2 11/02/16 14:55 97.8 116 14 121/56 98 Nasal Cannula 2 11/02/16 12:00 97.1 86 18 126/58 96 11/02/16 10:00 92 I/O 11/02/16 11/02/16 11/02/16 11/03/16 11/03/16 11/03/16 07:00 15:00 23:00 07:00 15:00 23:00 Intake Total 500 ml 300 ml Output Total 2 ml Balance 498 ml 300 ml IV Total 300 ml Other 500 ml Output Urine Total 0 ml Estimated Blood Loss 2 ml # Voids 3 1 1 # Bowel Movements 1 (Bette Moran MD R1) Result Diagram: 11/03/16 0650 11/03/16 0650 Imaging Last Impressions Lumbar Spine X-Ray 11/02/16 0000 Signed Impressions: Service Date/Time: Wednesday, November 02, 2016 14:10 - CONCLUSION: L5 vertebroplasty. Hilario Bermudez MD Hip MRI 11/01/16 0000 Signed Impressions: Service Date/Time: Tuesday, November 01, 2016 07:31 - CONCLUSION: Bony edema suspicious for insufficiency fractures of both sacral ala, left greater than right and the pubic symphysis. Mild edema of the gluteus minimus muscle. Wade Root MD Objective Remarks GENERAL: Thin, alert, elderly female in no apparent distress lying in bed. she wants to eat SKIN: Warm and dry. No rashes. HEAD: Atraumatic. Normocephalic. EYES: Pupils equal and round. No scleral icterus. No injection or drainage. ENT: No nasal bleeding or discharge. Mucous membranes pink and moist. NECK: Trachea midline. No JVD. CARDIOVASCULAR: Regular rate and rhythm. No murmurs. RESPIRATORY: No accessory muscle use. Clear to auscultation anteriorly. Breath sounds equal bilaterally. GASTROINTESTINAL: Abdomen soft, non-tender, nondistended. +BS, active. MUSCULOSKELETAL: Extremities without clubbing, cyanosis, or edema. No obvious deformities. No extensive exam was performed at bedside given recent surgery in no acute symptoms. NEUROLOGICAL: Awake and alert. No obvious cranial nerve deficits. Normal speech. PSYCHIATRIC: Appropriate mood and affect; insight and judgment normal. Procedures Kyphoplasty 11/02/2016 Medications and IVs Inpatient Medications Acetaminophen (Tylenol) 650 mg Q4H PRN PO TEMP > 100.4; Start 10/30/16 at 17:00 Acetaminophen/ Hydrocodone Bitart (Teller 5-325 Mg) 1 tab Q4H PRN PO PAIN SCALE 3 TO 5; Start 10/30/16 at 17:15; Stop 10/31/16 at 07:20; Status DC Acetaminophen/ Hydrocodone Bitart (Teller 7.5-325 Mg) 1 tab Q4H PRN PO PAIN SCALE 6 TO 10 Last administered on 10/31/16 07:10; Start 10/30/16 at 17:15; Stop 10/31/16 at 07:20; Status DC Amlodipine Besylate (Norvasc) 2.5 mg DAILY PO Last administered on 11/03/16 08 :19; Start 10/31/16 at 09:00 Aspirin (Aspirin) 325 mg DAILY PO ; Start 10/31/16 at 09:00; Stop 10/31/16 at 09: 00; Status DC Bisacodyl (Dulcolax Supp) 10 mg DAILY PRN RECTAL SEVERE CONSITIPATION; Start at 17:00 Cholecalciferol 1000 units 1,000 units DAILY PO Last administered on 11/03/16 08:19; Start 11/01/16 at 14:00 Clonidine (Catapres) 0.1 mg Q6H PRN PO SBP> OR = 180, DBP> OR = 100; Start 10/31 at 02:15 Donepezil HCl (Aricept) 10 mg BID PO Last administered on 11/03/16 08:19; Start 10/31/16 at 09:00 Famotidine (Pepcid) 20 mg DAILY PO Last administered on 11/03/16 08:19; Start 11/03/16 at 09:00 Heparin Sodium (Porcine) (Heparin Inj) 5,000 units Q12HR SQ Last administered on 11/03/16 08:19; Start 10/31/16 at 09:00 Hydromorphone HCl (Dilaudid Pf Inj) 0.5 mg Q4H PRN IV PUSH BREAKTHROUGH PAIN Last administered on 11/03/16 08:21; Start 10/31/16 at 12:00 Lactulose (Lactulose Liq) 30 ml DAILY PRN PO SEVERE CONSITIPATION; Start at 17:00 Magnesium Hydroxide (Milk Of Magnesia Liq) 30 ml Q12H PRN PO MILD - MODERATE CONSTIPATION; Start 10/30/16 at 17:00 Miscellaneous (Pill Splitter) 1 ea UNSCH PRN OTHER SEE LABEL COMMENTS; Start at 02:15 Miscellaneous Information ALL NURSING DEPARTME... UNSCH PRN .XX SEE LABEL COMMENTS; Start 11/02/16 at 19:15; Stop 11/03/16 at 19:14 Morphine Sulfate (Morphine Inj) 4 mg Q3H PRN IV BREAKTHROUGH PAIN Last administered on 10/31/16 03:00; Start 10/30/16 at 17:15; Stop 10/31/16 at 11:52; Status DC Naloxone HCl (Narcan Inj) 0.4 mg UNSCH PRN IV SEE LABEL COMMENTS; Start at 07:15 Ondansetron HCl (Zofran Inj) 4 mg Q6H PRN IVP NAUSEA OR VOMITING; Start at 17:00 Oxycodone/ Acetaminophen (Percocet 5-325 Mg) 1 tab Q6H PO Last administered on 11/03/16 08:20; Start 10/31/16 at 08:00 Prednisone (Deltasone) 5 mg DAILY PO Last administered on 11/03/16 08:19; Start 10/31/16 at 09:00 Raloxifene HCl (Evista) 60 mg DAILY PO ; Start 10/31/16 at 09:00; Stop 10/31/16 at 14:37; Status DC Ramipril (Altace) 10 mg BID PO Last administered on 11/03/16 08:19; Start 10/31 at 02:15 Senna/Docusate Sodium (Shannon-Colace) 1 tab BID PO Last administered on 08:19; Start 10/30/16 at 21:00 Sennosides (Senokot) 17.2 mg Q12H PRN PO MODERATE - SEVERE CONSTIPATION; Start 10/30/16 at 17:00 Sodium Chloride (NS 1000 ml Inj) 1,000 ml @ 100 mls/hr Q10H IV ; Start at 00:01 Sodium Chloride (NS Flush) 2 ml BID IV FLUSH Last administered on 11/03/16 08: 20; Start 10/30/16 at 21:00 (Bette Moran MD R1) Urinary Catheter: No (Bette Moran MD R1) Vascular Central Line Catheter: No (Bette Moran MD R1) A/P Assessment and Plan Patient is an 86-year-old female admitted for intractable pain related to lower back subacute compression fractures. She was admitted for pain control. She is postop from L5 kyphoplasty on 11/02/16. Discharge Planning Length of stay to be determined following kyphoplasty performed by neurosurgery on 11/02/16 She was admitted from an [facility]LEM. Possibly may need to be discharged to a SNF. Case management was consulted (Bette Moran MD R1) Attending Attestation The exam, history, and the medical decision-making described in the above note were completed with the assistance of the resident physician. I reviewed and agree with the findings presented. I attest that I had a [id number] encounter with the patient on the same day, and personally performed and documented my assessment and findings in the medical record. Patient does report improved pain control after her procedure yesterday. Will need to be on oral pain control regimen only prior to discharge. (Tracie Rust MD) Problem List: (1) Compression fracture of L5 lumbar vertebra Status: Acute Plan: Plan: * Kyphoplasty performed by neurosurgery 11/02/16 * Low vitamin D - D3 1000U daily PO was initiated * Supportive care and discharge planning per neurosurgery recs. * Physical therapy. * Continue pain control with Percocet 5-325mg scheduled, Dilaudid 0.5 mg IV for breakthrough pain. Tolerating this well; last BM 11/03/16 * She is also on prednisone 5mg daily, per her [facility] records. This was possibly initiated 10/15/2016. Unknown why she is taking this. Would likely benefit from taper off. * Assist with bathroom needs at bedside. She is using an adult diaper at this time and not requiring a Ly. Hospital Course: * Admitted for intractable pain related to lower back subacute compression fracture. She has history of osteoarthritis and osteoporosis per report. * Pain control with Teller 5-325mg for pain 1-5, 7.5-325 for 6-10, Morphine 4mg IV q3hr prn breakthrough initially, did not help. * Consulted neurosurgery for evaluation of surgical management, as patient is interested in this given the severity of her pain and non-resolution with conservative management. * Low vitamin D 14.8. Initiated supplementation by mouth at 1000U daily on . * Calcium level normal on admission. * Of note, patient is on raloxifene, likely for her osteoporosis. Holding while inpatient. * PTH ordered to assess parathyroid fx - PTH level normal (38.8) on 11/01/16. * Phosphorus ordered - Phosphorus level normal (2.9) on 11/01/16. * Daughter (POA) was updated on plan of care 11/01/16 by phone at patient's request. (2) Vitamin D insufficiency Status: Acute Plan: Plan: * Start Vitamin D oral supplementation. Possible contributing to weakness in bones. Hospital Course: * Low vitamin D 14.8 noted on 11/01/2016. Initiated supplementation by mouth at 1000U daily on 11/01/16. (3) Sacral insufficiency fracture Status: Acute Plan: Noted on imaging 10/29/16 and MRI 11/01/16. Additionally patient has pubic symphysis insufficiency fracture. 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 Kidney function is normal. * Continue hydration by mouth for now. Hospital Course: * Noted on renal ultrasound 10/29/16. She has a dilated left renal collecting system. * No GLORIA, no urinary symptoms, UA on admission is unremarkable aside from mild elevation of ketones. (5) HTN (hypertension) Status: Chronic Plan: Continue home ramipril 10 mg twice a day. Give when necessary clonidine as needed for BP > 180/100. (6) Fluids/Electrolytes/Nutrition/Prophylaxis Status: Acute Plan: Fluids: * Tolerating PO Electrolytes: * Monitor and replete as needed. Nutrition: * Regular diet DVT Prophylaxis: * Early ambulation. * Heparin 5000U subQ q12hr. * Bilateral SCDs. GI Prophylaxis: * Started Ranitidine 150 mg PO daily since patient is on prednisone. (Bette Moran MD R1) Problem Qualifiers (1) Compression fracture of L5 lumbar vertebra: Qualified Code: S32.050D - Compression fracture of L5 lumbar vertebra, with routine healing, subsequent encounter Bette Moran MD R1 Nov 03, 2016 09:02 Tracie Rust MD Nov 03, 2016 11:26
--- NOTE | 2016-11-03 09:47 | EKG ---
Date Performed: 11/02/2016 Time Performed: 13:20:47 PTAGE: 86 years EKG: Sinus rhythm NONSPECIFIC T-WAVE ABNORMALITY BORDERLINE ECG NO PREVIOUS TRACING DOCTOR: Arnav Dyer Interpretating Date/Time 11/03/2016 09:46:07
--- NOTE | 2016-11-03 11:58 | HHI.NSPN ---
History Chief Complaint: Low back pain controlled since not moving Interval History Pleasant 86-year-old female who states that approximately 4 days ago she developed rapidly progressive severe low back pain without radiation to the lower extremities. She has no significant weakness or numbness in the lower extremities and no complain of bowel or bladder dysfunction. She normally ambulates reasonably well and takes care of her daily activities. However the past 3 or 4 days she has been mostly mobilized in a wheelchair and unable to do things for herself. She presented to the emergency room yesterday, and was diagnosed with a lumbar compression fracture. She was discharged back to the [facility] where she resides, but returned today due to persistent severe pain not resolved with medications. She denies any significant neck pain. No pain weakness or numbness in the upper extremities 10/31/16: Patient complains of primarily focal left gluteal pain when trying to mobilize out of bed. She took only a few steps with physical therapy today 11/01/16: Continues to be very painful across the low back and left gluteal region. Unable to mobilize out of bed without significant pain 11/02/16: L5 kyphoplasty 11/03/16: Patient was significant improvement in pain. No significant gluteal tenderness. Able to sit up in a chair today. Exam Results Vital Signs Date Time Temp Pulse Resp B/P Pulse Ox O2 Delivery O2 Flow Rate FiO2 11/03/16 09:01 18 11/03/16 08:00 98.1 75 147/67 95 11/02/16 16:30 Nasal Cannula 2 11/01/16 10:42 21 Intake and Output 11/02/16 11/02/16 11/03/16 08:00 16:00 00:00 Intake Total 500 ml 300 ml Output Total 2 ml Balance 498 ml 300 ml Physical Examination GENERAL: No apparent distress, readily interacts, smiles, normal affect. MUSCULOSKELETAL: FIGUEROA but pain with movement of bilateral hips, TTP to mid lumbar & paraspinals INTEGUMENTARY: Warm & dry, no evident discolouration, ulcerations, rashes or other lesions noted. Steri-Strips in place on the lumbar region. NEUROLOGICAL: AA&Ox3 Speech clear & appropriated Follows simple commands w/o difficulty. Sensation intact to light touch to both lower extremities Motor strength 4+ to 5/5 to all major flexion & extension muscle groups to bilateral lower extremities, limiting factor appears to be pain Lab, Micro, Other Results Laboratory Tests Test 11/03/16 06:50 White Blood Count 13.6 TH/MM3 Red Blood Count 3.67 MIL/MM3 Hemoglobin 10.8 GM/DL Hematocrit 33.3 % Mean Corpuscular Volume 90.9 FL Mean Corpuscular Hemoglobin 29.4 PG Mean Corpuscular Hemoglobin 32.3 % Concent Red Cell Distribution Width 13.7 % Platelet Count 237 TH/MM3 Mean Platelet Volume 8.8 FL Neutrophils (%) (Auto) 85.4 % Lymphocytes (%) (Auto) 7.8 % Monocytes (%) (Auto) 6.6 % Eosinophils (%) (Auto) 0.0 % Basophils (%) (Auto) 0.2 % Neutrophils # (Auto) 11.6 TH/MM3 Lymphocytes # (Auto) 1.1 TH/MM3 Monocytes # (Auto) 0.9 TH/MM3 Eosinophils # (Auto) 0.0 TH/MM3 Basophils # (Auto) 0.0 TH/MM3 CBC Comment DIFF FINAL Differential Comment Sodium Level 137 MEQ/L Potassium Level 4.1 MEQ/L Chloride Level 102 MEQ/L Carbon Dioxide Level 27.4 MEQ/L Anion Gap 8 MEQ/L Blood Urea Nitrogen 21 MG/DL Creatinine 0.62 MG/DL Estimat Glomerular Filtration 92 ML/MIN Rate Random Glucose 94 MG/DL Calcium Level 9.2 MG/DL Total Bilirubin 0.5 MG/DL Aspartate Amino Transf 27 U/L (AST/SGOT) Alanine Aminotransferase 20 U/L (ALT/SGPT) Alkaline Phosphatase 121 U/L Total Protein 6.2 GM/DL Albumin 2.7 GM/DL 25-Hydroxy Vitamin D Total 20.2 ng/ML Medical Decision Making Impression and Plan Impression: Doing well following L5 kyphoplasty. At least moderate improvement in pain symptoms. She does not appear to have any significant residual left gluteal region pain today. Plan: Continue to mobilize out of bed as tolerated with LSO brace and physical therapy. Lower extremity sensorimotor exam is stable today. She is stable for discharge back to her [facility] with home physical therapy. We will check a x-ray of the lumbar spine in 10-14 days as an outpatient. Damien,Zack B. MD Nov 03, 2016 11:58
[2016-11-04 00:24] VITALS: BP 160/70; PULSE 81; RESP 17; TEMP 98.2; O2SAT 95
[2016-11-04] MEDS: SODIUM CHLOR 0.9% 1000 ML INJ 1,000 ML IV SCH ×2 (01:25→12:01)
[2016-11-04] MEDS: oxyCODONE/ACETAMINOPHEN 5 MG/325 MG TAB PO SCH (01:25)
[2016-11-04 05:04] VITALS: BP_SYST 69; PULSE 75; RESP 17; TEMP 97.8; O2SAT 96
[2016-11-04] MEDS: HYDROmorphone HCL PF 1 MG/ML VIAL IV PUSH PRN (05:45)
[2016-11-04 08:00] VITALS: BP 147/66; PULSE 81; RESP 18; TEMP 96.5; O2SAT 94
[2016-11-04] MEDS: SODIUM CHLORIDE 0.9% FLUSH 10 ML FLUSH IV FLUSH SCH (08:03)
[2016-11-04] MEDS: CHOLECALCIFEROL (VIT D3) 1000 UNIT TAB PO SCH (08:03)
[2016-11-04] MEDS: FAMOTIDINE 20 MG TAB PO SCH (08:03)
[2016-11-04] MEDS: predniSONE 5 MG TAB PO SCH (08:03)
[2016-11-04] MEDS: DOCUSATE SODIUM 50 MG/SENNA 8.6 MG TAB PO SCH (08:03)
[2016-11-04] MEDS: RAMIPRIL 5 MG CAP PO SCH (08:04)
[2016-11-04] MEDS: DONEPEZIL HCL 5 MG TAB PO SCH (08:04)
[2016-11-04] MEDS: amLODIPine BESYLATE 5 MG TAB PO SCH (08:04)
[2016-11-04] MEDS: HEPARIN SODIUM - SQ 10,000 UNITS/ML VIAL SQ SCH (08:05)
[2016-11-04] MEDS: ACETAMINOPHEN/HYDROcodone 325 MG/7.5 MG TAB PO SCH ×3 (08:48→15:33)
[2016-11-04 10:11] VITALS: O2SAT 94
[2016-11-04] MEDS ORDERED: ACETAMINOPHEN/HYDROcodone 325 MG/10 MG TAB PO PRN (10:45)
[2016-11-04] MEDS ORDERED: NALOXONE HCL 0.4 MG/ML AMP IV PRN (10:45)
[2016-11-04 12:09] VITALS: BP 131/61; PULSE 74; RESP 18; TEMP 96.1; O2SAT 95
[2016-11-04] MEDS ORDERED: HYDR-3583 PO (12:25)
[2016-11-04] MEDS ORDERED: HYDR-3580 PO (12:25)
--- NOTE | 2016-11-04 12:28 | HHI.FF ---
Face to Face Verification Diagnosis: (1) Compression fracture of L5 lumbar vertebra (2) Status post kyphoplasty (3) Vitamin D insufficiency (4) Sacral insufficiency fracture Physical Therapy Order: Evaluate and Treat Home Health Nursing Order: Medical education Medication education-adverse effect Wound care and dressing changes Nursing assessment with vital signs I have seen patient Kimberli Berrios on 11/04/16. My clinical findings support the need for the requested home health care services because: She is status post kyphoplasty on 11/01/2016 and is limited in the performance of ADLs/IADLs due to pain and deconditioning Ltd mobility - disease progression Deconditioned w/ increased weakness Limited ability to care for self High risk of falls I certify that my clinical findings support that this patient is homebound because: Post-op weakness Unsteady gait/balance Unsafe to leave home unassisted Poor cardiac reserve Bette Moran MD R1 Nov 04, 2016 12:28 Tracie Rust MD Nov 04, 2016 13:07
[2016-11-04 13:46] VITALS: RESP 18
--- NOTE | 2016-11-04 14:13 | HHI.FPPN ---
Subjective Remarks Patient was seen and examined this morning. She states she has pain with moving. At time of interview, she had pain in the lower abdomen where the brace made contact with her skin and she was ready to get into bed. She ate dinner without difficulty and was ready for breakfast. She is tolerated transfers from bed to chair and tolerating TAMIKO brace. She is ready to go home today; noting that she has home health nursing assistance almost around the clock at home already and is ready to continue with those services in addition to PT. Pain is controlled on Dilaudid well and she is willing to go home on [place] 7.5mg PO dosing if she tolerates it this morning. (Bette Moran MD R1) Objective Vitals Vital Signs Date Time Temp Pulse Resp B/P Pulse Ox O2 Delivery O2 Flow Rate FiO2 11/04/16 13:46 18 11/04/16 12:09 96.1 74 18 131/61 95 11/04/16 10:11 94 21 11/04/16 08:00 96.5 81 18 147/66 94 11/04/16 05:04 97.8 75 17 69/ 96 11/04/16 00:24 98.2 81 17 160/70 95 11/03/16 20:07 97.9 82 17 141/66 95 11/03/16 18:29 18 11/03/16 16:00 97.1 73 19 135/64 96 11/03/16 15:11 18 I/O 11/03/16 11/03/16 11/03/16 11/04/16 11/04/16 11/04/16 07:00 15:00 23:00 07:00 15:00 23:00 Intake Total 560 ml 360 ml 240 ml Balance 560 ml 360 ml 240 ml Intake Oral 560 ml 360 ml 240 ml # Voids 1 4 6 3 # Bowel Movements 1 (Bette Moran MD R1) Result Diagram: 11/03/16 0650 11/03/16 0650 Imaging Last Impressions Lumbar Spine X-Ray 11/02/16 0000 Signed Impressions: Service Date/Time: Wednesday, November 02, 2016 14:10 - CONCLUSION: L5 vertebroplasty. Hilario Bermudez MD Hip MRI 11/01/16 0000 Signed Impressions: Service Date/Time: Tuesday, November 01, 2016 07:31 - CONCLUSION: Bony edema suspicious for insufficiency fractures of both sacral ala, left greater than right and the pubic symphysis. Mild edema of the gluteus minimus muscle. Wade Root MD Objective Remarks GENERAL: Thin, alert, elderly female in no apparent distress with a BELT LOOP MAKER brace in place. Sitting in chair at bedside. SKIN: Warm and dry. No rashes. HEAD: Atraumatic. Normocephalic. EYES: Pupils equal and round. No scleral icterus. No injection or drainage. ENT: No nasal bleeding or discharge. NECK: Trachea midline. No JVD. CARDIOVASCULAR: Regular rate and rhythm. No murmurs. RESPIRATORY: No accessory muscle use. Clear to auscultation bilaterally in all lung ibarra. GASTROINTESTINAL: Abdomen soft, non-tender, nondistended. +BS, active. It is noted that the BELT LOOP MAKER brace makes tight contact with the belly at the area of complaint. MUSCULOSKELETAL: Extremities without clubbing, cyanosis, or edema. No obvious deformities. NEUROLOGICAL: Awake and alert. No obvious cranial nerve deficits. Normal speech. PSYCHIATRIC: Appropriate mood and affect; insight and judgment normal. Procedures Kyphoplasty 11/02/2016 Medications and IVs Inpatient Medications Acetaminophen (Tylenol) 650 mg Q4H PRN PO TEMP > 100.4; Start 10/30/16 at 17:00 Acetaminophen/ Hydrocodone Bitart ([place] 5-325 Mg) 1 tab Q4H PRN PO PAIN SCALE 3 TO 5; Start 10/30/16 at 17:15; Stop 10/31/16 at 07:20; Status DC Acetaminophen/ Hydrocodone Bitart ([place] 7.5-325 Mg) 1 tab Q6H PO ; Start 11/04 at 09:00 Acetaminophen/ Hydrocodone Bitart ([place] 10-325 Mg) 1 tab Q4H PRN PO BREAKTHROUGH PAIN 6-10 Last administered on 11/04/16 12:34; Start 11/04/16 at 10:45 Amlodipine Besylate (Norvasc) 2.5 mg DAILY PO Last administered on 11/04/16 08 :04; Start 10/31/16 at 09:00 Aspirin (Aspirin) 325 mg DAILY PO ; Start 10/31/16 at 09:00; Stop 10/31/16 at 09: 00; Status DC Bisacodyl (Dulcolax Supp) 10 mg DAILY PRN RECTAL SEVERE CONSITIPATION; Start at 17:00 Cholecalciferol 1000 units 1,000 units DAILY PO Last administered on 11/04/16 08:03; Start 11/01/16 at 14:00 Clonidine (Catapres) 0.1 mg Q6H PRN PO SBP> OR = 180, DBP> OR = 100; Start 10/31 at 02:15 Donepezil HCl (Aricept) 10 mg BID PO Last administered on 11/04/16 08:04; Start 10/31/16 at 09:00 Famotidine (Pepcid) 20 mg DAILY PO Last administered on 11/04/16 08:03; Start 11/03/16 at 09:00 Heparin Sodium (Porcine) (Heparin Inj) 5,000 units Q12HR SQ Last administered on 11/04/16 08:05; Start 10/31/16 at 09:00 Hydromorphone HCl (Dilaudid Pf Inj) 0.5 mg Q4H PRN IV PUSH BREAKTHROUGH PAIN Last administered on 11/04/16 05:45; Start 10/31/16 at 12:00; Stop 11/04/16 at 10:31; Status DC Lactulose (Lactulose Liq) 30 ml DAILY PRN PO SEVERE CONSITIPATION; Start at 17:00 Magnesium Hydroxide (Milk Of Magnesia Liq) 30 ml Q12H PRN PO MILD - MODERATE CONSTIPATION; Start 10/30/16 at 17:00 Miscellaneous (Pill Splitter) 1 ea UNSCH PRN OTHER SEE LABEL COMMENTS; Start at 02:15 Miscellaneous Information ALL NURSING DEPARTME... UNSCH PRN .XX SEE LABEL COMMENTS; Start 11/02/16 at 19:15; Stop 11/03/16 at 19:14; Status DC Morphine Sulfate (Morphine Inj) 4 mg Q3H PRN IV BREAKTHROUGH PAIN Last administered on 10/31/16 03:00; Start 10/30/16 at 17:15; Stop 10/31/16 at 11:52; Status DC Naloxone HCl (Narcan Inj) 0.4 mg UNSCH PRN IV SEE LABEL COMMENTS; Start at 07:15 Ondansetron HCl (Zofran Inj) 4 mg Q6H PRN IVP NAUSEA OR VOMITING; Start at 17:00 Oxycodone/ Acetaminophen (Percocet 5-325 Mg) 1 tab Q6H PO Last administered on 11/04/16 01:25; Start 10/31/16 at 08:00; Stop 11/04/16 at 08:03; Status DC Prednisone (Deltasone) 5 mg DAILY PO Last administered on 11/04/16 08:03; Start 10/31/16 at 09:00 Raloxifene HCl (Evista) 60 mg DAILY PO ; Start 10/31/16 at 09:00; Stop 10/31/16 at 14:37; Status DC Ramipril (Altace) 10 mg BID PO Last administered on 11/04/16 08:04; Start 10/31 at 02:15 Senna/Docusate Sodium (Shannon-Colace) 1 tab BID PO Last administered on 08:03; Start 10/30/16 at 21:00 Sennosides (Senokot) 17.2 mg Q12H PRN PO MODERATE - SEVERE CONSTIPATION; Start 10/30/16 at 17:00 Sodium Chloride (NS 1000 ml Inj) 1,000 ml @ 100 mls/hr Q10H IV ; Start at 00:01 Sodium Chloride (NS Flush) 2 ml BID IV FLUSH Last administered on 11/04/16 08: 03; Start 10/30/16 at 21:00 (Bette Moran MD R1) Urinary Catheter: No (Bette Moran MD R1) Vascular Central Line Catheter: No (Bette Moran MD R1) A/P Assessment and Plan Patient is an 86-year-old female admitted for intractable pain related to lower back subacute compression fractures. She was admitted for pain control. She is postop from L5 kyphoplasty on 11/02/16. Discharge Planning Discharge to SNF this afternoon. She was admitted from an SNF. Case management was consulted and assisting with transportation back to SNF. Home health care form completed and is in patient's chart. (Bette Moran MD R1) Attending Attestation The exam, history, and the medical decision-making described in the above note were completed with the assistance of the resident physician. I reviewed and agree with the findings presented. I attest that I had a [id number] encounter with the patient on the same day, and personally performed and documented my assessment and findings in the medical record. (Tracie Rust MD) Problem List: (1) Compression fracture of L5 lumbar vertebra Status: Acute Plan: Plan: Discharge home. Pain control with [place] 7.5/325mg q6hr, with [place] 10/325mg PRN. Not to exceed 3g Tylenol daily. This was discussed with patient and is on Rx. She is to follow up with PCP and Neurosurgery within two weeks. She will continue PT at her [facility] and have home health nursing staff assist with wound care, medication administration, and ADLs. Hospital Course: * Admitted for intractable pain related to lower back subacute compression fracture. She has history of osteoarthritis and osteoporosis per report. * Pain control with [place] 5-325mg for pain 1-5, 7.5-325 for 6-10, Morphine 4mg IV q3hr prn breakthrough initially, did not help. * Consulted neurosurgery for evaluation of surgical management, as patient is interested in this given the severity of her pain and non-resolution with conservative management. * Kyphoplasty performed by neurosurgery 11/02/16 * Low vitamin D - D3 1000U daily PO was initiated * Physical therapy evaluated and recommended patient return to SNF with home PT * She is also on prednisone 5mg daily, per her SNF records. This was possibly initiated 10/15/2016. Unknown why she is taking this. Would likely benefit from taper off. * Low vitamin D 14.8. Initiated supplementation by mouth at 1000U daily on . * Calcium level normal on admission. * Of note, patient is on raloxifene, likely for her osteoporosis. Holding while inpatient, recommending discontinuing * Assist with bathroom needs at bedside. She is using an adult diaper at this time and not requiring a Ly. * PTH level normal (38.8) on 11/01/16. * Phosphorus level normal (2.9) on 11/01/16. * Daughter (POA) was updated on plan of care 11/03/16 by phone at patient's request. (2) Vitamin D insufficiency Status: Acute Plan: Plan: * Start Vitamin D oral supplementation. Possible contributing to weakness in bones. Hospital Course: * Low vitamin D 14.8 noted on 11/01/2016. Initiated supplementation by mouth at 1000U daily on 11/01/16. (3) Sacral insufficiency fracture Status: Acute Plan: Noted on imaging 10/29/16 and MRI 11/01/16. Additionally patient has pubic symphysis insufficiency fracture. 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 Kidney function is normal. * Continue hydration by mouth for now. Hospital Course: * Noted on renal ultrasound 10/29/16. She has a dilated left renal collecting system. * No GLORIA, no urinary symptoms, UA on admission is unremarkable aside from mild elevation of ketones. (5) HTN (hypertension) Status: Chronic Plan: Continue home ramipril 10 mg twice a day. BP at goal this hospital stay. Did not require any PRN antihypertensive. (6) Fluids/Electrolytes/Nutrition/Prophylaxis Status: Acute Plan: Fluids: * Tolerating PO Electrolytes: * Monitor and replete as needed. Nutrition: * Regular diet DVT Prophylaxis: * Early ambulation. * Heparin 5000U subQ q12hr. * Bilateral SCDs. GI Prophylaxis: * Started Ranitidine 150 mg PO daily since patient is on prednisone. (Bette Moran MD R1) Problem Qualifiers (1) Compression fracture of L5 lumbar vertebra: Qualified Code: S32.050D - Compression fracture of L5 lumbar vertebra, with routine healing, subsequent encounter Bette Moran MD R1 Nov 04, 2016 14:13 Tracie Rust MD Nov 04, 2016 16:46
--- NOTE | 2016-11-05 11:42 | HHI.DS ---
Discharge Summary Admission Date Oct 31, 2016 at 12:48 Discharge Date: Nov 04, 2016 Admitting Diagnosis intractable lower back pain (1) Compression fracture of L5 lumbar vertebra Diagnosis: Principal Plan: Plan: Discharge home. Pain control with [place] 7.5/325mg q6hr, with [place] 10/325mg PRN. Not to exceed 3g Tylenol daily. This was discussed with patient and is on Rx. She is to follow up with PCP and Neurosurgery within two weeks. She will continue PT at her [facility] and have home health nursing staff assist with wound care, medication administration, and ADLs. Hospital Course: * Admitted for intractable pain related to lower back subacute compression fracture. She has history of osteoarthritis and osteoporosis per report. * Pain control with [place] 5-325mg for pain 1-5, 7.5-325 for 6-10, Morphine 4mg IV q3hr prn breakthrough initially, did not help. * Consulted neurosurgery for evaluation of surgical management, as patient is interested in this given the severity of her pain and non-resolution with conservative management. * Kyphoplasty performed by neurosurgery 11/02/16 * Low vitamin D - D3 1000U daily PO was initiated * Physical therapy evaluated and recommended patient return to [facility] with home PT * She is also on prednisone 5mg daily, per her [facility] records. This was possibly initiated 10/15/2016. Unknown why she is taking this. Would likely benefit from taper off. * Low vitamin D 14.8. Initiated supplementation by mouth at 1000U daily on . * Calcium level normal on admission. * Of note, patient is on raloxifene, likely for her osteoporosis. Holding while inpatient, recommending discontinuing * Assist with bathroom needs at bedside. She is using an adult diaper at this time and not requiring a Ly. * PTH level normal (38.8) on 11/01/16. * Phosphorus level normal (2.9) on 11/01/16. * Daughter (POA) was updated on plan of care 11/03/16 by phone at patient's request. (2) Vitamin D insufficiency Diagnosis: Secondary Plan: Plan: * Start Vitamin D oral supplementation. Possible contributing to weakness in bones. Hospital Course: * Low vitamin D 14.8 noted on 11/01/2016. Initiated supplementation by mouth at 1000U daily on 11/01/16. (3) Sacral insufficiency fracture Diagnosis: Secondary Plan: Noted on imaging 10/29/16 and MRI 11/01/16. Additionally patient has pubic symphysis insufficiency fracture. Management as above (4) Stenosis of ureteropelvic junction (UPJ) Diagnosis: Secondary Plan: Plan: * Monitor kidney function. Kidney function is normal. * Continue hydration by mouth for now. Hospital Course: * Noted on renal ultrasound 10/29/16. She has a dilated left renal collecting system. * No GLORIA, no urinary symptoms, UA on admission is unremarkable aside from mild elevation of ketones. (5) HTN (hypertension) Diagnosis: Secondary Plan: Continue home ramipril 10 mg twice a day. BP at goal this hospital stay. Did not require any PRN antihypertensive. (6) Fluids/Electrolytes/Nutrition/Prophylaxis Diagnosis: Secondary Plan: Fluids: * Tolerating PO Electrolytes: * Monitor and replete as needed. Nutrition: * Regular diet DVT Prophylaxis: * Early ambulation. * Heparin 5000U subQ q12hr. * Bilateral SCDs. GI Prophylaxis: * Started Ranitidine 150 mg PO daily since patient is on prednisone. Consultants Neurosurgery Procedures Kyphoplasty 11/02/2016 Brief History Patient is an 86-year-old female with history of hypertension, osteoporosis, and osteoporosis who presents to the ED from her [facility] for intractable low back pain. She states that at baseline she is able to walk independently with a cane but over the last 3 days she has been will tell down due to her low back pain. The pain is noted to be 10/10 in severity, preventing her from being able to stand, and has not been relieved at home with [place], given at 7.5 mg hydrocodone dose. She returned to the ED from the [facility] due to the pain being excruciating. She notes that she would be interested in surgery if this is an option she normally enjoys being able to do her ADLs/IADLs independently. She denies any urinary/stool incontinence or retention, but is wearing an adult diaper due to the pain with movement she has had over the last 3 days. She denies dysuria and is noted to have a normal UA on ED evaluation on 10/29/16. She is able to get to the restroom after being placed in a wheelchair but this is very painful. She denies any history of falls or syncope. She denies chest pain, shortness of breath, nausea vomiting, fevers, chills, rashes, bruises, neck or upper back pain. She has chronic osteoarthritis and notes that her right hip gives her pain regularly for which she sometimes uses lidocaine patch. She was seen in the [place] ED on 10/29/16 at which time a lumbar spine CT as well as MRI were performed: * CT showing moderate T12 and mild L5 compression fracture of unknown chronicity. L5 fractures possibly acute given apparent cleft on imaging study. It was also notable for moderate left-sided hydronephrosis. * The MRI was subsequently performed and notable for a subacute compression fracture of the inferior plate at L5. She also has mild degenerative changes to the lumbar spine with bilateral facet joint arthritis at multiple levels. Lastly , she has a nondisplaced insufficiency fracture through the body of the right sacrum. CBC/BMP: 11/03/16 0650 11/03/16 0650 Significant Findings Laboratory Tests Test 11/03/16 06:50 White Blood Count 13.6 TH/MM3 (4.0-11.0) Red Blood Count 3.67 MIL/MM3 (4.00-5.30) Hemoglobin 10.8 GM/DL (11.6-15.3) Hematocrit 33.3 % (35.0-46.0) Neutrophils (%) (Auto) 85.4 % (16.0-70.0) Lymphocytes (%) (Auto) 7.8 % (9.0-44.0) Neutrophils # (Auto) 11.6 TH/MM3 (1.8-7.7) Blood Urea Nitrogen 21 MG/DL (7-18) Alkaline Phosphatase 121 U/L (45-117) Total Protein 6.2 GM/DL (6.4-8.2) Albumin 2.7 GM/DL (3.4-5.0) 25-Hydroxy Vitamin D Total 20.2 ng/ML (30-100) Imaging Last Impressions Lumbar Spine X-Ray 11/02/16 0000 Signed Impressions: Service Date/Time: Wednesday, November 02, 2016 14:10 - CONCLUSION: L5 vertebroplasty. Hilario Bermudez MD Hip MRI 11/01/16 0000 Signed Impressions: Service Date/Time: Tuesday, November 01, 2016 07:31 - CONCLUSION: Bony edema suspicious for insufficiency fractures of both sacral ala, left greater than right and the pubic symphysis. Mild edema of the gluteus minimus muscle. 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 Sitting in chair at bedside. SKIN: Warm and dry. No rashes. HEAD: Atraumatic. Normocephalic. EYES: Pupils equal and round. No scleral icterus. No injection or drainage. ENT: No nasal bleeding or discharge. NECK: Trachea midline. No JVD. CARDIOVASCULAR: Regular rate and rhythm. No murmurs. RESPIRATORY: No accessory muscle use. Clear to auscultation bilaterally in all lung ibarra. GASTROINTESTINAL: Abdomen soft, non-tender, nondistended. +BS, active. It is noted that the [employer]IST[employer]ONT [employer]NAGER brace makes tight contact with the belly at the area of complaint. MUSCULOSKELETAL: Extremities without clubbing, cyanosis, or edema. No obvious deformities. NEUROLOGICAL: Awake and alert. No obvious cranial nerve deficits. Normal speech. PSYCHIATRIC: Appropriate mood and affect; insight and judgment normal. Hospital Course 86 year old female with intractable back pain related to insufficiency fractures of the lumbar and sacral bones. She was admitted for pain control and evaluated as inpatient for possible surgical intervention. Decision was made to proceed to kyphoplasty on 11/02/16 which patient tolerated well. She did require Dilaudid IV for pain control during her stay which was transition to [place] 7.5mg PO q6hr by the time of discharge with [place] 10mg offered for breakthrough pain. PT evaluated patient and recommended discharge to [facility] with continued home health (she was admitted from [facility] with home health). She is to continue PT daily at home and continue TLSO brace. She will follow-up with Neurosurgery in 2 weeks with x-ray of lumbar spine ordered per neurosurgery. She was discharged in stable condition. She was deficient of vitamin D - 1000U daily PO ordered and continued at discharge. Home medications were continued. Of note, these medications included prednisone 5mg daily, and mild stable leukocytosis noted and likely related to prednisone. Raloxifene was discontinued. Pt Condition on Discharge: Stable Discharge Disposition: [facility] Discharge Instructions DIET: Follow Instructions for: As Tolerated, No Restrictions Activities you can perform: See Additionl Instruction Activities to Avoid: Contact Sports, Lifting/Bending, Strenuous Activity Other Activity Instructions: Physical therapy to evaluate and treat at [facility] Follow up Referrals: Neurosurgery - 2 Weeks with Zack Quezada MD PCP Follow-up - 1 Week New Orders: X-RAY SPINE LUMBAR LIMITED - 2 Weeks New Medications: Hydrocodone-Acetaminophen (Hydrocodone-Acetaminophen) 10-325 mg Tab 1 TAB PO Q4H Do not exceed 3g of acetaminophen (of any form) within 24 hours. PRN BREAKTHROUGH PAIN 6-10 #30 TAB Hydrocodone-Acetaminophen (Hydrocodone-Acetaminophen) 7.5-325 mg Tab 1 TAB PO Q6H #30 TAB Bette Moran MD R1 Nov 05, 2016 11:42
== END 2016-11-04 16:50 | DRG 516 ==
LOC: NEPC 12:59 → NEDA 15:14 → N05A 18:19 → OBSVTOIN 10-31 12:48
PROVIDERS: ADMIT Family Medicine; ATTEND Family Medicine
PROC: 0QU03JZ Supplement Lumbar Vertebra with Synthetic Substitute, Percutaneous Approach (ICD-10-PCS; 2016-11-02)
PROC: 0QS03ZZ Reposition Lumbar Vertebra, Percutaneous Approach (ICD-10-PCS; principal; 2016-11-02 13:25)
DX: M80.88XA Other osteoporosis with current pathological fracture, vertebra(e), initial encounter for fracture (principal); N13.1 Hydronephrosis with ureteral stricture, not elsewhere classified; M84.48XA Pathological fracture, other site, initial encounter for fracture; E55.9 Vitamin D deficiency, unspecified; M81.0 Age-related osteoporosis without current pathological fracture; I10 Essential (primary) hypertension; M19.90 Unspecified osteoarthritis, unspecified site; Z79.52 Long term (current) use of systemic steroids; Z66 Do not resuscitate; Z87.891 Personal history of nicotine dependence
CPT/HCPCS: 72100; 73721; 76937; 80048; 80053; 82306; 83970; 84100; 85025; 85610; 85730; 93005; 94150; G0378; J0131; J1100; J1170; J1644; J2250; J2270; J2370; J2405; J2710; J3010; J7030; J7512; Q9967

== ENCOUNTER 2016-12-17 13:57 | Emergency (ER) | payer MEDICARE, OTHER ==
[~2016-12-17] VITALS: Ht 157.5 cm; Wt 85.0 kg
[~2016-12-17 13:57] MED LIST changes: +HYDR-3580 PO; +HYDR-3583 PO; +SENN1TAB PO; +VITA100021 SL
[2016-12-17 14:02] VITALS: BP 140/59; PULSE 89; RESP 16; TEMP 99.4; O2SAT 91
[2016-12-17] MEDS ORDERED: cefTRIAXone INJ 1,000 MG in SODIUM CHLORIDE 0.9% INJ 100 ML IV ONE (14:15)
--- NOTE | 2016-12-17 14:15 | PD ---
HPI Chief Complaint: Fever Time Seen by Provider: 14:01 Travel History International Travel<30 days: No Contact w/Intl Traveler<30days: No Traveled to known affect area: No History of Present Illness HPI This patient was found have a fever at the [facility]. Her temp was 102. She was given Tylenol and is currently 99. The patient was seen and examined in the presence of the nurse. Patient does not know why she has fever. She does have some runny nose but otherwise no cough or shortness of breath or chest pain or headache or neck symptoms or abdominal pain or urinary complaints or vomiting or diarrhea. She has chronic back pain and had kyphoplasty last month. She does get around with a walker and undergoes physical therapy. Some severity is moderate. No alleviating factors. Duration one day PFSH Past Medical History High Cholesterol: Yes Cerebrovascular Accident: Yes Dementia: Yes Diverticulitis: Yes Hypertension: Yes Menopausal: Yes Social History Alcohol Use: No Tobacco Use: No Substance Use: No Allergies-Medications (Allergen,Severity, Reaction): Coded Allergies: No Known Allergies (Unverified , 12/02/16) Reported Meds & Prescriptions Reported Meds & Active Scripts Active Reported Fentanyl Patch 72 HR (Fentanyl) 25 Mcg/Hr Patch 25 Mcg T-DERMAL Q72H Tegretol (Carbamazepine) 200 Mg Tab 100 Mg PO BID Vitamin B-12 (Cyanocobalamin) 1,000 Mcg Subl 1,000 Mcg SL DAILY Senna-Plus (Sennosides-Docusate Sodium) 8.6-50 Mg Tab 2 Tab PO DAILY PRN Lidocaine Patch 12 HR (Lidocaine) 5 % Patch 1 Patch TOPICAL DAILY PRN Remove patch after 12 hours Raloxifene (Raloxifene HCl) 60 Mg Tab 60 Mg PO DAILY Ramipril 10 Mg Cap 10 Mg PO BID Mobic (Meloxicam) 7.5 Mg Tab 7.5 Mg PO BID [place] (Hydrocodone-Acetaminophen) 5-325 mg Tab 0.5 Tab PO Q6H PRN Aspirin 325 Mg Tab 325 Mg PO DAILY Aricept (Donepezil HCl) 10 Mg Tablet 1 Tab PO DAILY Amlodipine (Amlodipine Besylate) 2.5 Mg Tab 2.5 Mg PO DAILY Review of Systems General / Constitutional: Positive: Fever Eyes: No: Visual changes HENT: Positive: Rhinorrhea, Congestion, No: Headaches Cardiovascular: No: Chest Pain or Discomfort Respiratory: No: Shortness of Breath Gastrointestinal: No: Abdominal Pain Genitourinary: No: Dysuria Musculoskeletal: No: Pain Skin: No Rash Neurologic: No: Weakness Psychiatric: No: Depression Endocrine: No: Polydipsia Hematologic/Lymphatic: No: Easy Bruising Physical Exam Narrative GENERAL: Well-nourished, well-developed patient in no apparent distress. SKIN: Focused skin assessment reveals no rash and nodules. Skin is Warm and dry. HEAD: Atraumatic. Normocephalic. EYES: Pupils equal and round. No scleral icterus. No injection or drainage. ENT: No nasal bleeding or discharge. Mucous membranes pink and moist. Throat clear NECK: Trachea midline. No JVD. No meningeal signs CARDIOVASCULAR: Regular rate and rhythm. No murmur appreciated. RESPIRATORY: No accessory muscle use. Clear to auscultation. Breath sounds equal bilaterally. GASTROINTESTINAL: Abdomen soft, non-tender, nondistended. Hepatic and splenic margins not palpable. MUSCULOSKELETAL: No obvious deformities. No clubbing. No cyanosis. No edema. NEUROLOGICAL: Awake and alert. No obvious cranial nerve deficits. Motor grossly within normal limits. Normal speech. PSYCHIATRIC: Appropriate mood and affect; insight and judgment normal. Data Data Last Documented VS Vital Signs Date Time Temp Pulse Resp B/P (MAP) Pulse Ox O2 Delivery O2 Flow Rate FiO2 12/17/16 14:31 98 Nasal Cannula 2.00 12/17/16 14:02 99.4 89 16 140/59 (86) Orders Orders Complete Blood Count With Diff (12/17/16 14:07) Urinalysis - C+S If Indicated (12/17/16 14:07) Blood Culture (12/17/16 14:07) Chest, Single Ap (12/17/16 14:07) Iv Access Insert/Monitor (12/17/16 14:07) Cath For Specimen (12/17/16 14:07) Oximetry (12/17/16 14:07) Basic Metabolic Panel (Bmp) (12/17/16 14:07) Ceftriaxone Inj (Rocephin Inj) (12/17/16 14:15) Urine Culture (12/17/16 14:29) Labs Laboratory Tests Test 12/17/16 14:29 White Blood Count 15.3 TH/MM3 Red Blood Count 3.52 MIL/MM3 Hemoglobin 10.2 GM/DL Hematocrit 31.6 % Mean Corpuscular Volume 89.8 FL Mean Corpuscular Hemoglobin 29.0 PG Mean Corpuscular Hemoglobin Concent 32.3 % Red Cell Distribution Width 13.1 % Platelet Count 134 TH/MM3 Mean Platelet Volume 9.4 FL Neutrophils (%) (Auto) 85.4 % Lymphocytes (%) (Auto) 3.7 % Monocytes (%) (Auto) 9.0 % Eosinophils (%) (Auto) 0.2 % Basophils (%) (Auto) 1.7 % Neutrophils # (Auto) 13.0 TH/MM3 Lymphocytes # (Auto) 0.6 TH/MM3 Monocytes # (Auto) 1.4 TH/MM3 Eosinophils # (Auto) 0.0 TH/MM3 Basophils # (Auto) 0.3 TH/MM3 CBC Comment DIFF FINAL Differential Comment Urine Collection Type CATH Urine Color YELLOW Urine Turbidity SLIGHT Urine pH 5.5 Urine Specific [place] 1.014 Urine Protein 100 mg/dL Urine Glucose (UA) NEG mg/dL Urine Ketones NEG mg/dL Urine Occult Blood MOD Urine Nitrite NEG Urine Bilirubin NEG Urine Leukocyte Esterase MOD Urine RBC 10-14 /hpf Urine WBC 20-24 /hpf Urine WBC Clumps MOD Urine Bacteria MANY /hpf Microscopic Urinalysis Comment CATH-CULTURE IND Urine Collection Time 14:29 Blood Urea Nitrogen 17 MG/DL Creatinine 0.75 MG/DL Random Glucose 115 MG/DL Calcium Level 8.3 MG/DL Sodium Level 136 MEQ/L Potassium Level 3.3 MEQ/L Chloride Level 101 MEQ/L Carbon Dioxide Level 26.9 MEQ/L Anion Gap 8 MEQ/L Estimat Glomerular Filtration Rate 74 ML/MIN [facility] Medical Decision Making Medical Screen Exam Complete: Yes Emergency Medical Condition: Yes Medical Record Reviewed: Yes Differential Diagnosis Febrile illness, URI, pneumonia, UTI Narrative Course I have reviewed the patient's electronic medical record. Reviewed her history and physical from earlier this summer. She was admitted for compression fracture and underwent kyphoplasty in October 2016 IV placed Blood culture obtained I gave her 1 g IV Rocephin Catheterized urine shows 20 white cells and will be cultured CBC shows some nonspecific leukocytosis Metabolic profile is normal I reviewed her chest x-ray which is normal Patient has no tachycardia or hypotension. She does not look septic or toxic She has some minor viral respiratory type complaints as well as minor urine findings I believe a gram of IV Rocephin would be sufficient with his urine has she does not even have urine symptoms and likely is an incidental finding I think the respiratory complaints explain the fever most likely She has no meningeal signs She has no back pain and there is no clinical suspicion of postsurgical infection Stable for outpatient family physician follow-up Diagnosis Primary Impression: Febrile illness, acute Additional Impression: Pyuria Additional Instructions: The patient was advised to follow up with their physician and return if they worsen. Med/Other Pt SpecificInfo: Other Disposition: 01 DISCHARGE HOME Condition: Stable Stephen Workman MD Dec 17, 2016 14:15
[2016-12-17] MEDS ORDERED: TEGR200T PO (14:18)
[2016-12-17] MEDS ORDERED: FENT25DI T-DERMAL (14:19)
[2016-12-17 14:31] VITALS: O2SAT 98
[2016-12-17 14:42] LABS: BLOOD, URINE MOD (NEG); GLUCOSE,URINE NEG (NEG); KETONE, URINE NEG (NEG); NITRITE,URINE NEG (NEG); PH, URINE 5.5 (5.0-8.5)
[2016-12-17 14:44] LABS: POTASSIUM 3.3 MEQ/L (3.5-5.1)
[2016-12-17 14:47] LABS: BICARBONATE 26.9 MEQ/L (21.0-32.0)
[2016-12-17 14:48] LABS: METHOD OF COLLECTION CATH
--- NOTE | 2016-12-17 14:48 | RADRPT ---
EXAM DATE/TIME: 12/17/2016 14:14 [facility] COMPARISON: No previous studies available for comparison. INDICATIONS : Fever. MEDICAL HISTORY : Hypertension. Dementia. Diverticulitis. TIA. Hyperlipidemia. SURGICAL HISTORY : Tubal ligation. ENCOUNTER: Initial ACUITY: 2 days PAIN SCORE: 0/10 LOCATION: chest FINDINGS: The lungs are clear without infiltrate, nodule, or mass except for slight scarring in the apices. Th ere is no appreciable pleural effusion for technique. Heart and mediastinum are unremarkable. CONCLUSION: No acute cardiopulmonary disease. Hilario Bermudez MD on December 17, 2016 at 14:46 Board Certified Radiologist. This report was verified electronically.
[2016-12-17 14:49] LABS: BACTERIA, URINE MANY /hpf; COMMENT (UR) CATH-CULTURE IND; CULTURE IF INDICATED CATH CULTURE IND; URINE COLOR YELLOW (YELLW/STRAW)
[2016-12-17 14:53] LABS: BASOPHIL # 0.3 TH/MM3 (0-0.2); BASOPHIL % 1.7 % (0.0-2.0); EOSINOPHIL % 0.2 % (0.0-4.0); HEMATOCRIT 31.6 % (35.0-46.0); HEMO FLAGS DIFF FINAL; LYMPH % 3.7 % (9.0-44.0); LYMPHOCYTE # 0.6 TH/MM3 (1.0-4.8); MEAN CELL VOLUME 89.8 FL (80.0-100.0); MEAN CORPUSCULAR HGB CONC 32.3 % (32.0-36.0); NEUT % 85.4 % (16.0-70.0); PLATELET COUNT 134 TH/MM3 (150-450); RED BLOOD COUNT 3.52 MIL/MM3 (4.00-5.30); RED CELL DISTRIBUTION WIDTH 13.1 % (11.6-17.2); WHITE BLOOD COUNT 15.3 TH/MM3 (4.0-11.0)
[2016-12-17 16:44] VITALS: BP 136/72; PULSE 75; RESP 16; TEMP 98.7; O2SAT 98
== END 2016-12-17 16:53 | disposition home or self-care (01) ==
LOC: PHED 13:57
DX: R50.9 Fever, unspecified (principal); N39.0 Urinary tract infection, site not specified; E78.5 Hyperlipidemia, unspecified; F03.90 Unspecified dementia, unspecified severity, without behavioral disturbance, psychotic disturbance, mood disturbance, and anxiety; I10 Essential (primary) hypertension; Z86.73 Personal history of transient ischemic attack (TIA), and cerebral infarction without residual deficits; Z87.19 Personal history of other diseases of the digestive system; A49.8 Other bacterial infections of unspecified site
CPT/HCPCS: 71010; 80048; 81001; 85025; 87040; 87077; 87086; 87186; 96365; 99284; J0696; P9612

== ENCOUNTER 2016-12-29 11:54 | Emergency (ER) | payer MEDICARE, OTHER ==
[~2016-12-29] VITALS: Ht 162.6 cm; Wt 76.0 kg
[~2016-12-29 11:54] MED LIST changes: +FENT25DI T-DERMAL; -HYDR-3580 PO; -HYDR-3583 PO; -PERC7.5T13 PO; -PRED5TAB PO; +TEGR200T PO
[2016-12-29 11:59] VITALS: BP 98/49; PULSE 89; RESP 17; TEMP 98.2; O2SAT 98
[2016-12-29] MEDS ORDERED: LIDO5%T TOPICAL (12:55)
[2016-12-29] MEDS ORDERED: DIME113C TOPICAL (12:55)
[2016-12-29] MEDS ORDERED: TUMS500C PO (12:55)
[2016-12-29] MEDS ORDERED: ZOLO25TA PO (12:55)
[2016-12-29] MEDS ORDERED: CHOL1CAP6 PO (12:55)
[2016-12-29] MEDS ORDERED: TYLE325T PO (12:55)
[2016-12-29] MEDS ORDERED: TEGR100T PO (12:55)
[2016-12-29] MEDS ORDERED: LOPE-1 PO (12:55)
[2016-12-29] MEDS ORDERED: HYDR-3583 PO (12:55)
[2016-12-29] MEDS ORDERED: BENGGEL3 TOPICAL (12:55)
--- NOTE | 2016-12-29 13:14 | PD ---
HPI Chief Complaint: Fall Time Seen by Provider: 12:03 Travel History International Travel<30 days: No Contact w/Intl Traveler<30days: No Traveled to known affect area: No History of Present Illness HPI 86-year-old female with his hypertension, hyperlipidemia, dementia, presents from the nursing facility with complaints of head neck back and bilateral hip pain. Patient states she became unsteady on her feet and fell into the shower. When paramedics arrived they found her leaning against the wall with her neck twisted in a funny manner. The patient was complaining of head neck and upper and lower back pain patient also stated left hip pain but when I interviewed her she stated she had bilateral hip pain. There is no reported shortening of her hip. She is able to answer questions however does appear to be slightly demented. There is no abdominal pain. There is no chest pain. The patient denies passing out. PFSH Past Medical History Hx Anticoagulant Therapy: Yes (ASA) Cardiovascular Problems: Yes (HBP) High Cholesterol: Yes Cerebrovascular Accident: Yes Dementia: Yes Diverticulitis: Yes Hypertension: Yes Neurologic: Yes Psychiatric: Yes Tetanus Vaccination: > 5 Years Influenza Vaccination: Yes ?: Not Menopausal: Yes Social History Alcohol Use: No (PT DENIES) Tobacco Use: No (QUIT 30 YEARS AGO) Substance Use: No (PT DENIES) Allergies-Medications (Allergen,Severity, Reaction): Coded Allergies: No Known Allergies (Unverified , 12/29/16) Reported Meds & Prescriptions Reported Meds & Active Scripts Active Reported Vitamin D-3 (Cholecalciferol) Unknown Strength Cap 1 Cap PO DAILY Tums (Calcium Carbonate (Antacid)) 500 Mg Chew 1,000 Mg PO DAILY Zoloft (Sertraline HCl) 25 Mg Tab 25 Mg PO HS Lidocaine Topical (Lidocaine HCl) 5 % Oint 1 TOPICAL Q8HR PRN Apply to lt forearm Imodium A-D (Loperamide HCl) 2 Mg Capsule 2 Mg PO Q6H PRN [place] Cold Therapy Topical (Menthol Topical) 5 % Gel 1 Applic TOPICAL Q12HR PRN Apply to lower back/hips A & D Zinc Oxide (Dimethicone-Zinc Oxide-Vitamin) 1 %-10 % Cre 1 Applic TOPICAL BID Apply to Rt buttock reddened area until healed Tegretol-Xr 12 HR (Carbamazepine) 100 Mg Tab 100 Mg PO Q12HR Hydrocodone-Acetaminophen 10-325 mg Tab 1 Tab PO Q4H PRN Not to exceed 3gm of acetaminophen in 24hrs Fentanyl Patch 72 HR (Fentanyl) 25 Mcg/Hr Patch 25 Mcg T-DERMAL Q72H Vitamin B-12 (Cyanocobalamin) 1,000 Mcg Subl 1,000 Mcg SL DAILY Senna-Plus (Sennosides-Docusate Sodium) 8.6-50 Mg Tab 2 Tab PO DAILY PRN Raloxifene (Raloxifene HCl) 60 Mg Tab 60 Mg PO DAILY Ramipril 10 Mg Cap 10 Mg PO BID Aspirin 325 Mg Tab 325 Mg PO DAILY Aricept (Donepezil HCl) 10 Mg Tablet 10 Mg PO DAILY Amlodipine (Amlodipine Besylate) 2.5 Mg Tab 2.5 Mg PO DAILY Hold if SBP less than 130 Review of Systems Except as stated in HPI: all other systems reviewed are Neg General / Constitutional: No: Fever, Chills HENT: Positive: Headaches (right side), Neck Pain (mid neck), No: Neck Stiffness Cardiovascular: No: Chest Pain or Discomfort, Palpitations Respiratory: No: Cough, Shortness of Breath Gastrointestinal: No: Nausea, Vomiting, Abdominal Pain Genitourinary: No: Dysuria, Incontinence Musculoskeletal: Positive: Pain (neck bilateral hip upper and lower back), No: Weakness, Edema Neurologic: Positive: Headache, No: Weakness, Syncope, Incontinence, Sensory Disturbance Physical Exam Narrative GENERAL: Well-developed well-nourished female in no acute respiratory distress. SKIN: Focused skin assessment warm/dry. HEAD: Atraumatic. Normocephalic. EYES: Pupils equal and round. No scleral icterus. No injection or drainage. ENT: No nasal bleeding or discharge. Mucous membranes pink and moist. NECK: Trachea midline. Patient in c-collar immobilization. CARDIOVASCULAR: Regular rate and rhythm. No murmur appreciated. RESPIRATORY: No accessory muscle use. Clear to auscultation. Breath sounds equal bilaterally. GASTROINTESTINAL: Abdomen soft, non-tender, nondistended. Hepatic and splenic margins not palpable. MUSCULOSKELETAL: No obvious deformities. No clubbing. No cyanosis. No edema. Patient is subjective pain into her bilateral hips. No deformity. No crepitance. BACK: Subjective tenderness in her mid thoracic spine. Patient also has subjective tenderness in her mid lumbar spine. No deformities. NEUROLOGICAL: Awake and alert. No obvious cranial nerve deficits. Motor grossly within normal limits. Normal speech. Data Data Last Documented VS Vital Signs Date Time Temp Pulse Resp B/P (MAP) Pulse Ox O2 Delivery O2 Flow Rate FiO2 12/29/16 12:00 89 17 98 Nasal Cannula 2.00 12/29/16 11:59 98.2 98/49 (65) Orders Orders Ct Brain W/O Iv Contrast(Rout) (12/29/16 12:03) Ct Cerv Spine W/O Contrast (12/29/16 12:03) Ct Thor Spine W/O Contrast (12/29/16 12:03) Ct Lumb Spine W/O Contrast (12/29/16 12:03) Hip, Uni(Ap&Lat) Wo Ap Pelvis (12/29/16 12:03) Hip, Uni(Ap&Lat) W Ap Pelvis (12/29/16 12:03) MDM Medical Decision Making Medical Screen Exam Complete: Yes Emergency Medical Condition: Yes Differential Diagnosis Cervical spine versus thoracic spine versus lumbar spine injury. Intracranial injury versus bilateral hip injury. Narrative Course This is a 86-year-old female with history of dementia, hypertension, who presents from the alf after she had a mechanical fall. The patient got unsteady and fell in the shower. She reports head neck and upper and lower back pain as well as bilateral hip pain. All x-rays and CT scans were negative for acute process. The patient will be discharged back to the skilled facility. She'll be encouraged to use NSAIDs for discomfort. Diagnosis Primary Impression: Cervical spine pain Additional Impressions: Thoracic spine pain Lumbar spine pain Bilateral hip pain status post mechanical fall. Additional Instructions: Ice 24-48 hours, then moist heat. Motrin every 8 hours as needed for pain. Disposition: 03 DISCHARGE TO SNF Condition: Stable Alex Mendez MD Dec 29, 2016 13:14
--- NOTE | 2016-12-29 13:19 | RADRPT ---
EXAM DATE/TIME: 12/29/2016 12:39 [facility] COMPARISON: No previous studies available for comparison. INDICATIONS : Fall this morning. Pain in both hips. MEDICAL HISTORY : Hypertension. Stroke. SURGICAL HISTORY : Kyphoplasty. ENCOUNTER: Initial ACUITY: 1 day PAIN SCORE: 8/10 LOCATION: Left Hip. FINDINGS: A two view examination of the left hip was performed. The primary and secondary trabecular pattern o f the femoral neck is intact. The hip joint is of normal width without significant sclerosis or bony hypertrophy. The acetabulum is grossly intact. CONCLUSION: No fracture or subluxation of the left hip. Cristiano Chino MD on December 29, 2016 at 13:16 Board Certified Radiologist. This report was verified electronically.
--- NOTE | 2016-12-29 13:22 | RADRPT ---
EXAM DATE/TIME: 12/29/2016 12:44 [facility] COMPARISON: MRI HIP LEFT W/O CONTRAST, November 01, 2016, 7:31. INDICATIONS : Fall this morning. Pain in both hips. MEDICAL HISTORY : Hypertension. Stroke. SURGICAL HISTORY : Kyphoplasty. ENCOUNTER: Initial ACUITY: 1 day PAIN SCORE: 8/10 LOCATION: Right Hip FINDINGS: No acute fracture seen of the right hip. No subluxation. Moderate osteoarthritis noted. Mild sclerosis related to subacute or older older sacral and pubic insufficiency fractures noted. CONCLUSION: No acute abnormality demonstrated of the right hip. Nonacute sacral and pubic insufficiency fractures . There is moderate right hip osteoarthritis. Cristiano Chino MD on December 29, 2016 at 13:18 Board Certified Radiologist. This report was verified electronically.
--- NOTE | 2016-12-29 13:38 | RADRPT ---
EXAM DATE/TIME: 12/29/2016 13:08 [facility] COMPARISON: No previous studies available for comparison. INDICATIONS : Fall this morning, neck and lower back pain, Dizziness RADIATION DOSE: 56.39 CTDIvol (mGy) MEDICAL HISTORY : Hypertension. Dementia. SURGICAL HISTORY : None. ENCOUNTER: Initial ACUITY: 1 day PAIN SCALE: 5/10 LOCATION: cranial TECHNIQUE: Multiple contiguous axial images were obtained of the head. Using automated exposure control and adj ustment of the mA and/or kV according to patient size, radiation dose was kept as low as reasonably a chievable to obtain optimal diagnostic quality images. DICOM format image data is available electro nically for review and comparison. FINDINGS: CEREBRUM: The ventricles are normal for age. No evidence of midline shift, mass lesion, hemorrhage or acute in farction. No extra-axial fluid collections are seen. Chronic low attenuation seen in the periventric ular white matter. There is generalized atrophy. POSTERIOR FOSSA: The cerebellum and brainstem are intact. The 4th ventricle is midline. The cerebellopontine angle i s unremarkable. EXTRACRANIAL: The visualized portion of the orbits is intact. SKULL: The calvaria is intact. No evidence of skull fracture. CONCLUSION: No bleed or other acute intracranial abnormality. Atrophy and chronic white matter changes are noted. Cristiano Chino MD on December 29, 2016 at 13:35 Board Certified Radiologist. This report was verified electronically.
--- NOTE | 2016-12-29 13:42 | RADRPT ---
EXAM DATE/TIME: 12/29/2016 13:08 [facility] COMPARISON: No previous studies available for comparison. INDICATIONS : Fall this morning, neck and lower back pain, dizziness RADIATION DOSE: 38.20 CTDIvol (mGy) MEDICAL HISTORY : Hypertension. Dementia. SURGICAL HISTORY : None. ENCOUNTER: Initial ACUITY: 1 day PAIN SCALE: 5/10 LOCATION: neck TECHNIQUE: Volumetric scanning of the cervical spine was performed. Multiplanar reconstructions in the sagittal, coronal and oblique axial planes were performed. Using automated exposure control and adjustment o f the mA and/or kV according to patient size, radiation dose was kept as low as reasonably achievable to obtain optimal diagnostic quality images. DICOM format image data is available electronically f or review and comparison. FINDINGS: VERTEBRAE: Normal vertebral body height. ALIGNMENT: No evidence of subluxation. C2-C3: The bony spinal canal is normal in size. No evidence of disc bulge or herniation. The neural forami na are bilaterally patent. C3-C4: The bony spinal canal is normal in size. No evidence of disc bulge or herniation. The neural forami na are bilaterally patent. C4-C5: Moderate disc space narrowing and mild right, moderate left uncovertebral and facet osteoarthritis. T here is mild left foraminal stenosis. C5-C6: Moderate to severe disc space narrowing with uncovertebral and facet osteoarthritis. Mild bilateral f oraminal stenosis. C6-C7: Moderate disc space narrowing and moderate bilateral uncovertebral and facet osteoarthritis. No signi ficant foraminal or spinal stenosis. C7-T1: The bony spinal canal is normal in size. No evidence of disc bulge or herniation. The neural forami na are bilaterally patent. Subpleural consolidation seen in the visualized portions of both lung bases, most likely chronic. CONCLUSION: Intact cervical spine. Degenerative changes as above. Cristiano Chino MD on December 29, 2016 at 13:37 Board Certified Radiologist. This report was verified electronically.
--- NOTE | 2016-12-29 13:54 | RADRPT ---
EXAM DATE/TIME: 12/29/2016 13:15 [facility] COMPARISON: SPINE LUMBAR LTD (AP & LAT), November 02, 2016, 14:10. MRI LUMBAR SPINE W & W/O CONTRAST, October 29, 2016, 14:43. CT LUMBAR SPINE W/O CONTRAST, October 29, 2016, 12:27. INDICATIONS : Fall this morning, neck and lower back pain, dizziness RADIATION DOSE: 21.75 CTDIvol (mGy) ; Combined studies MEDICAL HISTORY : Hypertension. Dementia. SURGICAL HISTORY : None. ENCOUNTER: Initial ACUITY: 1 day PAIN SCALE: 5/10 LOCATION: Lower back TECHNIQUE: Volumetric scanning of the lumbar spine was performed. Multiplanar reconstructions in the sagittal, coronal and oblique axial planes were performed. Using automated exposure control and adjustment of the mA and/or kV according to patient size, radiation dose was kept as low as reasonably achievable t o obtain optimal diagnostic quality images. DICOM format image data is available electronically for review and comparison. FINDINGS: Moderate to severe chronic compression fracture with kyphoplasty changes seen of L5. No acute lumbar fracture demonstrated. L1-L4 vertebral bodies have normal height. Mild disc space narrowing with diffuse annular bulges seen at L1/L2, L3/L4 and L4/L5. Patchy sclerosis seen of both sides of the sacroiliac typical of nonacute insufficiency fracturing. S imilar findings were seen previously. No perceptible acute fracture of the visualized sacrum. Atrophy and prominent collecting system again seen of the left kidney typical of a chronic UPJ obstru ction. There is a dependently layering stone in the left renal pelvis again noted, does not appear to be acutely obstructing/contributory. CONCLUSION: 1. No acute fracture or subluxation seen of the lumbar spine. 2. Chronic compression deformity with kyphoplasty changes at L5. 3. Mild multilevel degenerative changes. Cristiano Chion MD on December 29, 2016 at 13:46 Board Certified Radiologist. This report was verified electronically.
--- NOTE | 2016-12-29 13:59 | RADRPT ---
EXAM DATE/TIME: 12/29/2016 13:15 [facility] COMPARISON: No previous studies available for comparison. INDICATIONS : Fall this morning, neck and back pain, dizziness RADIATION DOSE: 21.75 CTDIvol (mGy) ; Combined studies MEDICAL HISTORY : Hypertension. Dementia. SURGICAL HISTORY : None. ENCOUNTER: Initial ACUITY: 1 day PAIN SCALE: 5/10 LOCATION: Upper back TECHNIQUE: Volumetric scanning of the thoracic spine was performed. Multiplanar reconstructions in the sagittal , coronal and oblique axial planes were performed. Using automated exposure control and adjustment o f the mA and/or kV according to patient size, radiation dose was kept as low as reasonably achievable to obtain optimal diagnostic quality images. DICOM format image data is available electronically f or review and comparison. FINDINGS: Moderate severity chronic compression deformity seen of the T12 vertebral body. No acute cortical jonny ak or trabecular disruption. Other vertebral bodies of the thoracic spine have normal height. Mild disc space narrowing and bilateral costovertebral and facet osteoarthritis seen from T5/T6 throu gh T10/T11. There is mild, degenerative appearing exaggeration of the thoracic kyphosis. No significa nt foraminal or spinal stenosis demonstrated. CONCLUSION: No acute fracture or subluxation of the thoracic spine. Chronic T12 compression fracture and mild mul tilevel degenerative changes as above. Cristiano Chino MD on December 29, 2016 at 13:54 Board Certified Radiologist. This report was verified electronically.
[2016-12-29 14:29] VITALS: BP 116/58; PULSE 89; RESP 17; TEMP 97.8; O2SAT 98
[2016-12-29] MEDS ORDERED: IBUPROFEN 400 MG TAB PO ONE (14:45)
[2016-12-29 16:19] VITALS: BP 110/67; PULSE 78; RESP 16; TEMP 97.8; O2SAT 99
[2016-12-29 18:30] VITALS: BP 108/77; TEMP 97.8
== END 2016-12-29 18:30 ==
LOC: NEPC 11:54
DX: M54.2 Cervicalgia (principal); M54.6 Pain in thoracic spine; M54.5 Low back pain; M25.552 Pain in left hip; M25.551 Pain in right hip; W18.2XXA Fall in (into) shower or empty bathtub, initial encounter; Y93.E1 Activity, personal bathing and showering; Y92.121 Bathroom in nursing home as the place of occurrence of the external cause
CPT/HCPCS: 70450; 72125; 72128; 72131; 73502; 99285

== ENCOUNTER 2017-01-27 18:31 | Inpatient (IN) | payer MEDICARE, OTHER ==
[~2017-01-27] VITALS: Ht 160 cm; Wt 53.0 kg
[~2017-01-27 18:31] MED LIST changes: +BENGGEL3 TOPICAL; +CHOL1CAP6 PO; +DIME113C TOPICAL; +HYDR-3583 PO; -LIDO1PAD52 TOPICAL; +LIDO5%T TOPICAL; +LOPE-1 PO; -MOBI7.5T PO; -NORC5TAB PO; +TEGR100T PO; -TEGR200T PO; +TUMS500C PO; +TYLE325T PO; +ZOLO25TA PO
[2017-01-27 18:47] VITALS: BP 137/71; PULSE 89; RESP 20; TEMP 97.9; O2SAT 97
[2017-01-27 19:20] VITALS: BP 153/72; PULSE 90; RESP 17; O2SAT 93
[2017-01-27] MEDS ORDERED: ARIC10TA2 (19:43)
[2017-01-27] MEDS ORDERED: SODIUM CHLOR 0.9% 1000 ML INJ 1,000 ML IV ONE (19:45)
[2017-01-27] MEDS ORDERED: TEGR200T PO (19:49)
[2017-01-27] MEDS ORDERED: MELO7.5T4 PO (19:49)
[2017-01-27] MEDS ORDERED: METH5TAB PO (19:49)
[2017-01-27] MEDS ORDERED: PRED10 PO (19:49)
[2017-01-27] MEDS ORDERED: ARIC23TA PO (19:49)
[2017-01-27] MEDS ORDERED: LOPE-1 PO (19:49)
--- NOTE | 2017-01-27 19:49 | PD ---
HPI Chief Complaint: GI Complaint Time Seen by Provider: 19:21 Travel History International Travel<30 days: No Contact w/Intl Traveler<30days: No Traveled to known affect area: No History of Present Illness HPI Patient is a 86 year old female who is alert to person and place, who presents to ER from assisted living facility with c/o of abdominal pain as well as diarrhea for the past 10 days. Patient reports that she has been on antibiotics recently, she is unsure why she was on antibiotics or which antibiotic she has been on. Patient denies chest pain/sob. Reports intermittent lower abdominal pain. Denies fever/chills. EMS reports bloody stools. PFSH Past Medical History Hx Anticoagulant Therapy: Yes (ASA) Cardiovascular Problems: Yes (HBP) High Cholesterol: Yes Cerebrovascular Accident: Yes Dementia: Yes Diverticulitis: Yes Hypertension: Yes Neurologic: Yes Psychiatric: Yes Menopausal: Yes Social History Alcohol Use: No (PT DENIES) Tobacco Use: No (QUIT 30 YEARS AGO) Substance Use: No (PT DENIES) Allergies-Medications (Allergen,Severity, Reaction): Coded Allergies: No Known Allergies (Unverified , 01/27/17) Reported Meds & Prescriptions Reported Meds & Active Scripts Active Reported Methadone (Methadone HCl) 5 Mg Tab 2.5 Mg PO DAILY Imodium A-D (Loperamide HCl) 2 Mg Capsule 2 Mg PO DIRECTED PRN One capsule after each loose stool. Not to exceed 8 tablets per day. Tegretol (Carbamazepine) 200 Mg Tab 200 Mg PO BID Meloxicam 7.5 Mg Tab 7.5 Mg PO DAILY Aricept (Donepezil) 23 Mg Tab 10 Mg PO HS Do not split, crushed or chewed. Prednisone 10 Mg Tab 10 Mg PO DAILY Aricept (Donepezil HCl) 10 Mg Tablet Tylenol (Acetaminophen) 325 Mg Tab 650 Mg PO Q4H PRN Tums (Calcium Carbonate (Antacid)) 500 Mg Chew 1,000 Mg PO DAILY Zoloft (Sertraline HCl) 25 Mg Tab 25 Mg PO HS Lidocaine Topical (Lidocaine HCl) 5 % Oint 1 TOPICAL Q8HR PRN Apply to lt forearm Imodium A-D (Loperamide HCl) 2 Mg Capsule 2 Mg PO Q6H PRN Tegretol-Xr 12 HR (Carbamazepine) 100 Mg Tab 100 Mg PO Q12HR Fentanyl Patch 72 HR (Fentanyl) 25 Mcg/Hr Patch 25 Mcg T-DERMAL Q72H Vitamin B-12 (Cyanocobalamin) 1,000 Mcg Subl 1,000 Mcg SL DAILY Senna-Plus (Sennosides-Docusate Sodium) 8.6-50 Mg Tab 2 Tab PO DAILY PRN Raloxifene (Raloxifene HCl) 60 Mg Tab 60 Mg PO DAILY Ramipril 10 Mg Cap 10 Mg PO BID Aspirin 325 Mg Tab 325 Mg PO DAILY Review of Systems General / Constitutional: No: Fever Eyes: No: Visual changes HENT: No: Headaches Cardiovascular: No: Chest Pain or Discomfort Respiratory: No: Shortness of Breath Gastrointestinal: Positive: Diarrhea, Abdominal Pain, Hematochezia Genitourinary: No: Dysuria Musculoskeletal: No: Pain Skin: No Rash Neurologic: No: Weakness Psychiatric: No: Depression Endocrine: No: Polydipsia Hematologic/Lymphatic: No: Easy Bruising Physical Exam Narrative GENERAL: Mild distress SKIN: Focused skin assessment warm/dry. HEAD: Atraumatic. Normocephalic. EYES: Pupils equal and round. No scleral icterus. No injection or drainage. ENT: No nasal bleeding or discharge. Mucous membranes pink and moist. NECK: Trachea midline. No JVD. CARDIOVASCULAR: Regular rate and rhythm. No murmur appreciated. RESPIRATORY: No accessory muscle use. Clear to auscultation. Breath sounds equal bilaterally. GASTROINTESTINAL: Abdomen soft, non-tender, nondistended. Hepatic and splenic margins not palpable. Dark brown stool - HEME positive STOOL MUSCULOSKELETAL: No obvious deformities. No clubbing. No cyanosis. No edema. NEUROLOGICAL: Awake and alert to person and place. No obvious cranial nerve deficits. Motor grossly within normal limits. Normal speech. PSYCHIATRIC: Flat mood and affect Data Data Last Documented VS Vital Signs Date Time Temp Pulse Resp B/P (MAP) Pulse Ox O2 Delivery O2 Flow Rate FiO2 01/27/17 19:55 17 93 Room Air 01/27/17 19:20 90 01/27/17 18:47 97.9 Orders Orders Complete Blood Count With Diff (01/27/17 19:23) Comprehensive Metabolic Panel (01/27/17 19:23) Prothrombin Time / Inr (Pt) (01/27/17 19:23) Act Partial Throm Time (Ptt) (01/27/17 19:23) Ecg Monitoring (01/27/17 19:23) Orthostatic Vital Signs (01/27/17 19:23) Oximetry (01/27/17 19:23) Oxygen Administration (01/27/17 19:23) Iv Access Insert/Monitor (01/27/17 19:23) Type And Screen (01/27/17 19:23) Urinalysis - C+S If Indicated (01/27/17 19:23) Lipase (01/27/17 19:23) C Diff Toxin Pcr (01/27/17 19:33) Sodium Chlor 0.9% 1000 Ml Inj (Ns 1000 M (01/27/17 19:45) Ct Abd/Pel W/O Iv Contrast (01/27/17 19:33) Chest, Single Ap (01/27/17 19:56) Ciprofloxacin 400 Mg Premix (Cipro 400 M (01/27/17 22:15) Metronidazole 500 Mg Inj (Flagyl 500 Mg (01/27/17 22:15) Admit Order (Ed Use Only) (01/27/17 22:41) Labs Laboratory Tests Test 01/27/17 19:30 White Blood Count 7.4 TH/MM3 Red Blood Count 3.69 MIL/MM3 Hemoglobin 10.9 GM/DL Hematocrit 32.7 % Mean Corpuscular Volume 88.5 FL Mean Corpuscular Hemoglobin 29.4 PG Mean Corpuscular Hemoglobin Concent 33.2 % Red Cell Distribution Width 15.2 % Platelet Count 172 TH/MM3 Mean Platelet Volume 8.8 FL Neutrophils (%) (Auto) 80.8 % Lymphocytes (%) (Auto) 5.7 % Monocytes (%) (Auto) 13.1 % Eosinophils (%) (Auto) 0.0 % Basophils (%) (Auto) 0.4 % Neutrophils # (Auto) 6.0 TH/MM3 Lymphocytes # (Auto) 0.4 TH/MM3 Monocytes # (Auto) 1.0 TH/MM3 Eosinophils # (Auto) 0.0 TH/MM3 Basophils # (Auto) 0.0 TH/MM3 CBC Comment DIFF FINAL Differential Comment Prothrombin Time 11.3 SEC Prothromb Time International Ratio 1.0 RATIO Activated Partial Thromboplast Time 35.0 SEC Blood Urea Nitrogen 18 MG/DL Creatinine 0.70 MG/DL Random Glucose 94 MG/DL Total Protein 6.3 GM/DL Albumin 2.6 GM/DL Calcium Level 8.6 MG/DL Alkaline Phosphatase 98 U/L Aspartate Amino Transf (AST/SGOT) 26 U/L Alanine Aminotransferase (ALT/SGPT) 18 U/L Total Bilirubin 0.6 MG/DL Sodium Level 131 MEQ/L Potassium Level 3.9 MEQ/L Chloride Level 92 MEQ/L Carbon Dioxide Level 29.8 MEQ/L Anion Gap 9 MEQ/L Estimat Glomerular Filtration Rate 80 ML/MIN Lipase 45 U/L MDM Medical Decision Making Medical Screen Exam Complete: Yes Emergency Medical Condition: Yes Medical Record Reviewed: Yes Interpretation(s) Vital Signs Date Time Temp Pulse Resp B/P (MAP) Pulse Ox O2 Delivery O2 Flow Rate FiO2 01/27/17 19:20 90 17 153/72 (99) 93 Room Air 01/27/17 19:20 16 01/27/17 18:47 97.9 89 20 137/71 (93) 97 Differential Diagnosis Differential includes anemia, GI bleed, colitis, electrolyte abnormality Narrative Course 86-year-old female who presents to emergency room with complaints of abdominal pain with diarrhea for the past 10 days. Patient was placed on a ekg monitor upon arrival to ER. Labs including type and screen ordered. Patient does have slight lower abdominal discomfort, she has heme positive dark stools. CT of the abdomen pelvis without IV contrast ordered. Plan to monitor patient at this time. Vital Signs Date Time Temp Pulse Resp B/P (MAP) Pulse Ox O2 Delivery O2 Flow Rate FiO2 01/27/17 19:55 17 93 Room Air 01/27/17 19:20 90 17 153/72 (99) 93 Room Air 01/27/17 19:20 16 01/27/17 18:47 97.9 89 20 137/71 (93) 97 CBC & BMP Diagram 01/27/17 19:30 Total Protein 6.3 L, Albumin 2.6 L, Calcium Level 8.6, Alkaline Phosphatase 98, Aspartate Amino Transf (AST/SGOT) 26, Alanine Aminotransferase (ALT/SGPT) 18, Total Bilirubin 0.6 Patient hemoglobin 10.9, patient's baseline hemoglobin is 11.1 CT abdomen pelvis with contrast shows thickening of the entire sigmoid colon concerning for colitis. She was given empiric Cipro and Flagyl for colitis. I did attempt to discharge patient back to [facility], patient reports severe lower abdominal pain this time. Plan to obs for abdominal pain with colitis. Case reviewed with Dr. Blair who accepts pt to her service Diagnosis Primary Impression: Colitis, acute Admitting Information Admitting Physician Requests: Observation Cari Vee DO Jan 27, 2017 19:48
[2017-01-27 19:55] VITALS: RESP 17; O2SAT 93
[2017-01-27 20:02] LABS: BASOPHIL % 0.4 % (0.0-2.0); HEMATOCRIT 32.7 % (35.0-46.0); HEMO FLAGS DIFF FINAL; LYMPH % 5.7 % (9.0-44.0); LYMPHOCYTE # 0.4 TH/MM3 (1.0-4.8); MEAN CELL VOLUME 88.5 FL (80.0-100.0); MEAN CORPUSCULAR HEMOGLOBIN 29.4 PG (27.0-34.0); MEAN CORPUSCULAR HGB CONC 33.2 % (32.0-36.0); MONO % 13.1 % (0.0-8.0); NEUT % 80.8 % (16.0-70.0); PLATELET COUNT 172 TH/MM3 (150-450); RED BLOOD COUNT 3.69 MIL/MM3 (4.00-5.30); RED CELL DISTRIBUTION WIDTH 15.2 % (11.6-17.2); WHITE BLOOD COUNT 7.4 TH/MM3 (4.0-11.0)
[2017-01-27 20:19] LABS: PROTHROMBIN TIME - PATIENT 11.3 SEC (9.8-11.6)
[2017-01-27 20:39] LABS: ALKALINE PHOSPHATASE 98 U/L (45-117); ALT (GPT) 18 U/L (10-53); TOTAL BILIRUBIN ADULT 0.6 MG/DL (0.2-1.0)
[2017-01-27 20:43] LABS: ANION GAP 9 MEQ/L (5-15); AST (GOT) 26 U/L (15-37); BICARBONATE 29.8 MEQ/L (21.0-32.0); BLOOD UREA NITROGEN 18 MG/DL (7-18); CHLORIDE 92 MEQ/L (98-107); GLOMERULAR FILTRATION RATE 80 ML/MIN (>89); POTASSIUM 3.9 MEQ/L (3.5-5.1); SODIUM (NA) 131 MEQ/L (136-145)
--- NOTE | 2017-01-27 21:28 | RADRPT ---
EXAM DATE/TIME: 01/27/2017 20:05 [facility] COMPARISON: CHEST SINGLE AP, December 17, 2016, 14:14. INDICATIONS : Short of breath. MEDICAL HISTORY : Hypertension. Dementia. Diverticulitis. TIA. Hyperlipidemia. SURGICAL HISTORY : Tubal ligation. ENCOUNTER: Initial ACUITY: 1 day PAIN SCORE: 0/10 LOCATION: Bilateral chest FINDINGS: The heart size is normal. The lungs are free of focal consolidation. There is apical pleural thickeni ng. The bones appear osteopenic. CONCLUSION: No acute disease. Cristiano Matthews MD on January 27, 2017 at 21:26 Board Certified Radiologist. This report was verified electronically.
--- NOTE | 2017-01-27 21:54 | RADRPT ---
EXAM DATE/TIME: 01/27/2017 20:20 [facility] COMPARISON: CT LUMBAR SPINE W/O CONTRAST, December 29, 2016, 13:15. INDICATIONS : Diarrhea since wednesday,blood in stools. ORAL CONTRAST: No oral contrast ingested. RADIATION DOSE: 7.04 CTDIvol (mGy) MEDICAL HISTORY : Dementia. Cardiovascular disease Hypertension. Diverticulitis SURGICAL HISTORY : None. ENCOUNTER: Initial ACUITY: 1 day PAIN SCALE: 0/10 LOCATION: Abdomen TECHNIQUE: Volumetric scanning of the abdomen and pelvis was performed. Using automated exposure control and adjustment of the mA and/or kV according to patient size, radiation dose was kept as low as reasonably achievable to obtain optimal diagnostic quality images. DICOM format image data is av ailable electronically for review and comparison. FINDINGS: Significantly dilated bowel is not seen. There is a mild hiatal hernia present. There does appear to be some thickening of the sigmoid colon. The remaining aspects of the colon appear no rmal in thickness. There are a few colonic diverticula. There do appear to be peripherally calcified gallstones seen in the gallbladder. The gallbladder evaristo ears to be completely filled with these stones. The gallbladder is not significantly distended. The liver, spleen, and right kidney appear normal. There appears to be chronic deformity at the left kid pau. The left kidney appears misshapen. This is likely from areas of focal atrophy. There is a 3.1 c m cyst at the superior lateral left kidney. There is moderate dilatation of the left renal pelvis and calices. There are nonobstructing stones seen at the inferior collecting system on the left measuri ng 0.9 and 0.6 cm. The ureter is not distended. There does appear to be atrophy of the pancreas with the pancreas appearing small. No focal pancreatic mass is seen. The adrenal glands are unremarkable bilaterally. Atherosclerotic calcifications are seen at the aorta. No aneurysm is seen. The patient appears to b e status post hysterectomy. No pelvic mass is seen. There is some minimal suspected atelectasis at the lung bases. The patient is status post vertebroplasty at L5. There is a concave deformity identified at the supe rior aspect of T12. This is thought to be chronic. There is degenerative change at the lower lumbar spine. There is some nonspecific sclerosis seen at the right aspect of the sacrum which may be from a prior insufficiency fracture. This was present on a prior CT examination. An acute fracture is no t seen. The T12 deformity was present on the prior lumbar spine CT examination. CONCLUSION: 1. Thickening of the entire sigmoid colon concerning for colitis. An abscess is not seen. 2. Gallstones. 3. 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 4. 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 The patient has chronic change at the superior aspect of T12 an d at the right side of the sacrum. Cristiano Matthews MD on January 27, 2017 at 21:36 Board Certified Radiologist. This report was verified electronically.
[2017-01-27] MEDS ORDERED: CIPROFLOXACIN 400 MG PREMIX 200 ML IV ONE (22:15)
[2017-01-27] MEDS ORDERED: metroNIDAZOLE 500 MG INJ 100 ML IV ONE (22:15)
[2017-01-27] MEDS ORDERED: ONDANSETRON HCL 4 MG/2 ML VIAL IVP PRN (22:45)
[2017-01-27] MEDS ORDERED: NALOXONE HCL 0.4 MG/ML AMP IV PUSH PRN (22:45)
[2017-01-27] MEDS ORDERED: SODIUM CHLORIDE 0.9% FLUSH 10 ML FLUSH IV FLUSH PRN (22:45)
--- NOTE | 2017-01-27 23:26 | HHI.HP ---
HPI Service [facility] Primary Care Physician Unknown Admission Diagnosis Sigmoid Colitis Diagnoses: (1) Colitis, acute Chief Complaint: Abdominal pain and diarrhea Travel History International Travel<30 Days: No Contact w/Intl Traveler <30 Da: No Traveled to Known Affected Are: No History of Present Illness Written by Lynn Sharma, acting as scribe for Dr. Blair on 01/27/17 at 23:25. The patient reports that she has had diarrhea "too damn long" The patient reports dark stool and abdominal pain, denies fever, chest pain, shortness of breath, palpations, dizziness, or syncope Reports foul-smelling stool Reports dysuria, denies hematuria The patient is very irritable and grumpy. She makes it clear throughout visit that she'd like to be left alone. Review of Systems Except as stated in HPI: all other systems reviewed are Neg Past Family Social History Past Medical History Hypertension TIA Diverticulosis Osteoporosis Denies diabetes, CAD, CHF, asthma, COPD, emphysema, liver or kidney problems, DVT, PE, CVA, or thyroid problems Past Surgical History Back surgery (L5 Kyphoplasty by Dr. Quezada per EMR 11/02/2016) . Reported Medications Reported Meds & Active Scripts Active Reported Methadone (Methadone HCl) 5 Mg Tab 2.5 Mg PO DAILY Imodium A-D (Loperamide HCl) 2 Mg Capsule 2 Mg PO DIRECTED PRN One capsule after each loose stool. Not to exceed 8 tablets per day. Tegretol (Carbamazepine) 200 Mg Tab 200 Mg PO BID Meloxicam 7.5 Mg Tab 7.5 Mg PO DAILY Aricept (Donepezil) 23 Mg Tab 10 Mg PO HS Do not split, crushed or chewed. Prednisone 10 Mg Tab 10 Mg PO DAILY Aricept (Donepezil HCl) 10 Mg Tablet Tylenol (Acetaminophen) 325 Mg Tab 650 Mg PO Q4H PRN Tums (Calcium Carbonate (Antacid)) 500 Mg Chew 1,000 Mg PO DAILY Zoloft (Sertraline HCl) 25 Mg Tab 25 Mg PO HS Lidocaine Topical (Lidocaine HCl) 5 % Oint 1 TOPICAL Q8HR PRN Apply to lt forearm Imodium A-D (Loperamide HCl) 2 Mg Capsule 2 Mg PO Q6H PRN Tegretol-Xr 12 HR (Carbamazepine) 100 Mg Tab 100 Mg PO Q12HR Fentanyl Patch 72 HR (Fentanyl) 25 Mcg/Hr Patch 25 Mcg T-DERMAL Q72H Vitamin B-12 (Cyanocobalamin) 1,000 Mcg Subl 1,000 Mcg SL DAILY Senna-Plus (Sennosides-Docusate Sodium) 8.6-50 Mg Tab 2 Tab PO DAILY PRN Raloxifene (Raloxifene HCl) 60 Mg Tab 60 Mg PO DAILY Ramipril 10 Mg Cap 10 Mg PO BID Aspirin 325 Mg Tab 325 Mg PO DAILY Allergies: Coded Allergies: No Known Allergies (Unverified , 01/27/17) Active Ordered Medications Current Medications Sodium Chloride 1,000 ml @ 999 mls/hr BOLUS ONCE IV Last administered on 01/27 19:50; Start 01/27/17 at 19:45; Stop 01/27/17 at 20:45; Status DC Ciprofloxacin/ Dextrose 200 ml @ 200 mls/hr ONCE ONCE IV Last administered on 01/27/17 22:25; Start 01/27/17 at 22:15; Stop 01/27/17 at 23:14; Status DC Metronidazole 100 ml @ 100 mls/hr ONCE ONCE IV ; Start 01/27/17 at 22:15; Stop 01/27/17 at 23:14; Status DC Sodium Chloride (NS Flush) 2 ml UNSCH PRN IV FLUSH FLUSH AFTER USING IV ACCESS ; Start 01/27/17 at 22:45 Sodium Chloride (NS Flush) 2 ml BID IV FLUSH ; Start 01/28/17 at 09:00 Ondansetron HCl (Zofran Inj) 4 mg Q6H PRN IVP NAUSEA OR VOMITING; Start at 22:45 Naloxone HCl (Narcan Inj) 0.4 mg UNSCH PRN IV PUSH SEE LABEL COMMENTS; Start 01/27/17 at 22:45 Metronidazole 100 ml @ 100 mls/hr Q6H IV ; Start 01/28/17 at 05:00 Family History The patient denies diabetes or cancers in the family . Social History Tobacco: quit smoking > 10 years ago Alcohol: denies . Physical Exam Vital Signs Vital Signs Date Time Temp Pulse Resp B/P (MAP) Pulse Ox O2 Delivery O2 Flow Rate FiO2 01/27/17 19:55 17 93 Room Air 01/27/17 19:20 90 17 153/72 (99) 93 Room Air 01/27/17 19:20 16 01/27/17 18:47 97.9 89 20 137/71 (93) 97 Physical Exam GENERAL: This is a thin elderly female patient, very grumpy. SKIN: No rashes, ecchymoses or lesions. Cool and dry. HEAD: Atraumatic. Normocephalic. No temporal or scalp tenderness. EYES: No scleral icterus. No injection or drainage. ENT: Nose without bleeding, purulent drainage or septal hematoma. Airway patent. NECK: Trachea midline. No JVD. CARDIOVASCULAR: Regular rate and rhythm without murmurs, gallops, or rubs. Click heard over aortic area. RESPIRATORY: Clear to auscultation. Breath sounds equal bilaterally. No wheezes , rales, or rhonchi. GASTROINTESTINAL: Abdomen soft, nondistended. Significant abdominal pain with palpation. MUSCULOSKELETAL: Extremities without clubbing, cyanosis, or edema. NEUROLOGICAL: Awake and alert. Motor and sensory grossly within normal limits. Normal speech. . Laboratory Laboratory Tests Test 01/27/17 19:30 White Blood Count 7.4 Red Blood Count 3.69 Hemoglobin 10.9 Hematocrit 32.7 Mean Corpuscular Volume 88.5 Mean Corpuscular Hemoglobin 29.4 Mean Corpuscular Hemoglobin Concent 33.2 Red Cell Distribution Width 15.2 Platelet Count 172 Mean Platelet Volume 8.8 Neutrophils (%) (Auto) 80.8 Lymphocytes (%) (Auto) 5.7 Monocytes (%) (Auto) 13.1 Eosinophils (%) (Auto) 0.0 Basophils (%) (Auto) 0.4 Neutrophils # (Auto) 6.0 Lymphocytes # (Auto) 0.4 Monocytes # (Auto) 1.0 Eosinophils # (Auto) 0.0 Basophils # (Auto) 0.0 CBC Comment DIFF FINAL Differential Comment Prothrombin Time 11.3 Prothromb Time International Ratio 1.0 Activated Partial Thromboplast Time 35.0 Blood Urea Nitrogen 18 Creatinine 0.70 Random Glucose 94 Total Protein 6.3 Albumin 2.6 Calcium Level 8.6 Alkaline Phosphatase 98 Aspartate Amino Transf (AST/SGOT) 26 Alanine Aminotransferase (ALT/SGPT) 18 Total Bilirubin 0.6 Sodium Level 131 Potassium Level 3.9 Chloride Level 92 Carbon Dioxide Level 29.8 Anion Gap 9 Estimat Glomerular Filtration Rate 80 Lipase 45 Result Diagram: 01/27/17192901/27/171929 Imaging CT Abdomen/Pelvis without IV contrast - thickening of the entire sigmoid colon concerning for colitis. An abscess was not seen. Gallstones. 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 s/p L5 vertebroplasty at L5 and chronic change superior aspect of T12 and at right side of sacrum. CXR - no acute disease . Caprini VTE Risk Assessment Caprini VTE Risk Assessment: Mod/High Risk (score >= 2) Caprini Risk Assessment Model Point Value = 1 Point Value = 2 Point Value = 3 Point Value = 5 Age 41-60 Minor surgery BMI > 25 kg/m2 Swollen legs Varicose veins or History of unexplained or recurrent spontaneous Oral contraceptives or hormone replacement Sepsis (< 1 month) Serious lung disease, including pneumonia (< 1 month) Abnormal pulmonary function Acute myocardial infarction Congestive heart failure (< 1 month) History of inflammatory bowel disease Medical patient at bed rest Age 61-74 Arthroscopic surgery Major open surgery (> 45 min) Laparoscopic surgery (> 45 min) Malignancy Confined to bed (> 72 hours) Immobilizing plaster cast Central venous access Age >= 75 History of VTE Family history of VTE Factor V Leiden Prothrombin [id number] Lupus anticoagulant Anticardiolipin antibodies Elevated serum homocysteine Heparin-induced thrombocytopenia Other congenital or acquired thrombophilia Stroke (< 1 month) Elective arthroplasty Hip, pelvis, or leg fracture Acute spinal cord injury (< 1 month) Prophylaxis Regimen Total Risk Factor Score Risk Level Prophylaxis Regimen 0-1 Low Early ambulation 2 Moderate Order ONE of the following: *Sequential Compression Device (SCD) *Heparin 5000 units SQ BID 3-4 Higher Order ONE of the following medications: *Heparin 5000 units SQ TID *Enoxaparin/Lovenox 40 mg SQ daily (WT < 150 kg, CrCl > 30 mL/min) *Enoxaparin/Lovenox 30 mg SQ daily (WT < 150 kg, CrCl > 10-29 mL/min) *Enoxaparin/Lovenox 30 mg SQ BID (WT < 150 kg, CrCl > 30 mL/min) AND/OR *Sequential Compression Device (SCD) 5 or more Highest Order ONE of the following medications: *Heparin 5000 units SQ TID (Preferred with Epidurals) *Enoxaparin/Lovenox 40 mg SQ daily (WT < 150 kg, CrCl > 30 mL/min) *Enoxaparin/Lovenox 30 mg SQ daily (WT < 150 kg, CrCl > 10-29 mL/min) *Enoxaparin/Lovenox 30 mg SQ BID (WT < 150 kg, CrCl > 30 mL/min) AND *Sequential Compression Device (SCD) Assessment and Plan Problem List: (1) Colitis, acute ICD Code: K52.9 - Noninfective gastroenteritis and colitis, unspecified Status: Resolved (2) Dementia ICD Code: F03.90 - Unspecified dementia without behavioral disturbance Status: Chronic (3) Hypertension ICD Code: I10 - Essential (primary) hypertension Status: Chronic Assessment and Plan 86 y/o female brought to ED from [facility] for diarrhea and abdominal pain. The patient had a recent course of antibiotics: Acute Colitis - check for c. difficile - follow results - Metronidazole 500 mg IV q6h; will add Cipro if c. diff negative - Morphine 2 mg IV q3h PRN pain - check lactic acid Dementia - continue home medications Hypertension - continue home medications - monitor trends in bp and adjust treatment accordingly DVT prophylaxis - Lovenox 40 mg subq q24h patient has a history of DNR - patient's daughter is POA per penitentiary records and no advanced directives were sent from [place] facility - will need to clarify code status with patient's daughter This note was transcribed by brock [Lynn Sharma]. I, Dr. Vivian Blair personally performed the history, physical exam, and medical decision making; and confirmed the accuracy of the information in the transcribed note. Authenticated by Dr. Vivian Blair on 01/27/17 at 23:25. Code Status patient has a history of DNR - patient's daughter is POA per penitentiary records and no advanced directives were sent from [place] facility - will need to clarify code status with patient's daughter Discussed Condition With ER physician, patient, and RN Lynn Sharma Jan 27, 2017 23:26 Vivian Blair MD Feb 03, 2017 03:12
[2017-01-27] MEDS ORDERED: MORPHINE SULFATE 4 MG/ML INJ IV PUSH PRN (23:45)
[2017-01-28] VITALS (14 sets, daily range): BP systolic 134–164; BP diastolic 62–70; PULSE 67–90; RESP 16–18; TEMP 98.1–99.1; O2SAT 89–97
[2017-01-28] MEDS ORDERED: ENOXAPARIN SODIUM 40 MG/0.4 ML SYRINGE SQ SCH (02:30)
[2017-01-28] MEDS ORDERED: PILL SPLITTER OTHER PRN (02:30)
[2017-01-28 02:54] LABS: AUTOMATED NEUTROPHIL # 4.9 TH/MM3 (1.8-7.7); BASOPHIL % 0.4 % (0.0-2.0); EOSINOPHIL % 0.1 % (0.0-4.0); HEMATOCRIT 27.4 % (35.0-46.0); HEMO FLAGS DIFF FINAL; LYMPH % 7.6 % (9.0-44.0); LYMPHOCYTE # 0.5 TH/MM3 (1.0-4.8); MEAN CELL VOLUME 90.7 FL (80.0-100.0); MEAN CORPUSCULAR HEMOGLOBIN 30.2 PG (27.0-34.0); MEAN CORPUSCULAR HGB CONC 33.3 % (32.0-36.0); MONO % 13.4 % (0.0-8.0); NEUT % 78.5 % (16.0-70.0); PLATELET COUNT 130 TH/MM3 (150-450); RED BLOOD COUNT 3.02 MIL/MM3 (4.00-5.30); RED CELL DISTRIBUTION WIDTH 15.2 % (11.6-17.2); WHITE BLOOD COUNT 6.2 TH/MM3 (4.0-11.0)
[2017-01-28 03:15] LABS: ALKALINE PHOSPHATASE 77 U/L (45-117); ALT (GPT) 16 U/L (10-53); ANION GAP 9 MEQ/L (5-15); AST (GOT) 15 U/L (15-37); BICARBONATE 28.4 MEQ/L (21.0-32.0); BLOOD UREA NITROGEN 14 MG/DL (7-18); CHLORIDE 96 MEQ/L (98-107); GLOMERULAR FILTRATION RATE 99 ML/MIN (>89); POTASSIUM 3.3 MEQ/L (3.5-5.1); SODIUM (NA) 133 MEQ/L (136-145); TOTAL BILIRUBIN ADULT 0.4 MG/DL (0.2-1.0)
[2017-01-28] MEDS: metroNIDAZOLE 500 MG INJ 100 ML IV SCH ×4 (04:13→23:30)
[2017-01-28] MEDS ORDERED: predniSONE 10 MG TAB PO SCH (09:00)
[2017-01-28] MEDS: ENOXAPARIN SODIUM 40 MG/0.4 ML SYRINGE SQ SCH (09:25)
[2017-01-28] MEDS: carBAMazepine 200 MG TAB PO SCH ×2 (09:25→21:59)
[2017-01-28] MEDS: ASPIRIN 325 MG TAB PO SCH (09:26)
[2017-01-28] MEDS: SODIUM CHLORIDE 0.9% FLUSH 10 ML FLUSH IV FLUSH SCH ×2 (09:26→21:00)
[2017-01-28] MEDS: CALCIUM CARBONATE 500 MG CHEWABLE TAB PO SCH (09:26)
[2017-01-28] MEDS: RAMIPRIL 5 MG CAP PO SCH ×2 (09:26→22:00)
[2017-01-28] MEDS ORDERED: POTASSIUM CHLORIDE 20 MEQ CONTROLLED RELEASE TAB PO ONE (13:00)
[2017-01-28] MEDS: CIPROFLOXACIN 400 MG PREMIX 200 ML IV SCH ×2 (13:12→21:59)
--- NOTE | 2017-01-28 13:16 | HHI.PR ---
Subjective Remarks Follow up for acute colitis. The patient is not the best historian. She reports continued pain throughout her "stomach". She is unable to localize the pain or further describe her symptoms. She answers "I don't know" to most questions. Denies any nausea/vomiting or diarrhea. She actually denies any recent diarrhea at all, but cannot tell me when her last BM was. She states she hasn't been eating over the past few days. Denies any fevers/chills. She is oriented to [facility], and [facility]. She has no other medical complaints at this time. Objective Vitals Vital Signs Date Time Temp Pulse Resp B/P (MAP) Pulse Ox O2 Delivery O2 Flow Rate FiO2 01/28/17 12:47 98.1 72 18 164/70 (101) 96 01/28/17 12:42 74 01/28/17 08:23 98.2 82 18 163/70 (101) 93 01/28/17 08:00 72 01/28/17 04:11 98.4 88 18 148/63 (91) 93 01/28/17 04:08 90 01/28/17 02:01 97 01/28/17 01:48 84 01/28/17 01:12 98.6 90 16 134/62 (86) 89 01/27/17 19:55 17 93 Room Air 01/27/17 19:20 90 17 153/72 (99) 93 Room Air 01/27/17 19:20 16 01/27/17 18:47 97.9 89 20 137/71 (93) 97 I/O 01/27/17 01/27/17 01/27/17 01/28/17 01/28/17 01/28/17 07:00 15:00 23:00 07:00 15:00 23:00 Intake Total 1200 ml Balance 1200 ml Intake IV Total 1200 ml Result Diagram: 01/28/1721701/28/17217 Imaging Last Impressions Chest X-Ray 01/27/171955 Signed Impressions: Service Date/Time: Friday, January 27, 2017 20:05 - CONCLUSION: No acute disease. Cristiano Matthews MD Abdomen/Pelvis CT 01/27/171932 Signed Impressions: Service Date/Time: Friday, January 27, 2017 20:20 - CONCLUSION: 1. Thickening of the entire sigmoid colon concerning for colitis. An abscess is not seen. 2. Gallstones. 3. 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 4. 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 The patient has chronic change at the superior aspect of T12 and at the right side of the sacrum. Cristiano Matthews MD Objective Remarks GENERAL: Well-nourished, well-developed elderly female patient in NAD. SKIN: Warm and dry. No rash. HEENT: Normocephalic. Atraumatic. Pupils equal and round. Mucous membranes pink and moist. CARDIOVASCULAR: Regular rate and rhythm. S1, S2 noted. No murmur appreciated. RESPIRATORY: No accessory muscle use. Clear to auscultation. Breath sounds equal bilaterally. GASTROINTESTINAL: Abdomen soft, nondistended, LLQ TTP. Normoactive bowel sounds x4. MUSCULOSKELETAL: No obvious deformities. Extremities without clubbing, cyanosis , or edema. NEUROLOGICAL: Awake and alert. No obvious cranial nerve deficits. Motor grossly within normal limits. Normal speech. PSYCHIATRIC: Appropriate mood and affect; insight and judgment fair. Medications and IVs Current Medications Medications (Trade) Dose Ordered Sig/Paramjit Route Start Time Stop Time Status Last Admin (NS Flush) 2 ml UNSCH PRN IV FLUSH 01/27/17 22:45 (NS Flush) 2 ml BID IV FLUSH 01/28/17 09:00 01/28/17 09:26 (Zofran Inj) 4 mg Q6H PRN IVP 01/27/17 22:45 (Narcan Inj) 0.4 mg UNSCH PRN IV PUSH 01/27/17 22:45 Metronidazole 100 ml @ 100 mls/hr Q6H IV 01/28/17 05:00 01/28/17 11:46 (Morphine Inj) 2 mg Q3H PRN IV PUSH 01/27/17 23:45 (Aspirin) 325 mg DAILY PO 01/28/17 09:00 01/28/17 09:26 (Tums Chew) 1,000 mg DAILY PO 01/28/17 09:00 01/28/17 09:26 (TEGretol) 200 mg BID PO 01/28/17 09:00 01/28/17 09:25 (Aricept) 10 mg HS PO 10/5/17 21:00 (Zoloft) 25 mg HS PO 01/28/17 21:00 (Altace) 10 mg BID PO 01/28/17 09:00 01/28/17 09:26 (Lovenox Inj) 40 mg Q24H SQ 01/28/17 09:00 01/28/17 09:25 (Pill Splitter) 1 ea UNSCH PRN OTHER 01/28/17 02:30 Ciprofloxacin/ Dextrose 200 ml @ 200 mls/hr Q8H IV 01/28/17 11:15 A/P Problem List: (1) Colitis, acute ICD Code: K52.9 - Noninfective gastroenteritis and colitis, unspecified Status: Acute (2) Dementia ICD Code: F03.90 - Unspecified dementia without behavioral disturbance Status: Chronic (3) Hypertension ICD Code: I10 - Essential (primary) hypertension Status: Chronic Assessment and Plan 86 y/o female brought to ED from [facility] for diarrhea and abdominal pain. The patient had a recent course of antibiotics: Acute Colitis: CT abdomen images reviewed, shows thickening of the entire sigmoid colon concerning for colitis; no abscess seen. Lactic acid 1.1. Afebrile , no leukocytosis. - check stool for c. difficile - follow results - Continue IV Flagyl and IV Cipro - Supportive treatment with IVF, antiemetics prn, and pain control with IV morphine prn - Initially kept NPO, advance to clear liquids tonight - monitor for improvement Dementia - continue home medications Hypertension - continue home medications - monitor trends in bp and adjust treatment accordingly Normocytic Anemia: Hgb 10.9 upon arrival, decreased to 9.1 overnight, suspect dilutional - check iron studies/ferritin - check stool hemoccult - monitor CBC DVT prophylaxis- Lovenox 40 mg subq q24h Discharge Planning Discharge pending further clinical improvement, likely needs additional 2-3 days of IV antibiotics. Rica Ramachandran PA-C Jan 28, 2017 1:16 pm
[2017-01-28 15:48] LABS: BACTERIA, URINE MANY /hpf; BLOOD, URINE SMALL (NEG); COMMENT (UR) CULTURE INDICATED; CULTURE IF INDICATED CULTURE INDICATED; GLUCOSE,URINE NEG (NEG); KETONE, URINE 40 mg/dL (NEG); NITRITE,URINE NEG (NEG); SQUAMOUS EPITHELIAL CELL URINE 4 /hpf (0-5); TRANSITIONAL EPI CELLS, URINE 1 /hpf; URINE COLOR YELLOW (YELLW/STRAW)
[2017-01-28] MEDS: D5-1/2 NS + KCL 20 MEQ INJ 1,000 ML IV SCH (17:12)
[2017-01-28] MEDS: SERTRALINE HCL 50 MG TAB PO SCH (21:59)
[2017-01-28] MEDS: DONEPEZIL HCL 5 MG TAB PO SCH (22:00)
[2017-01-29] VITALS (11 sets, daily range): BP systolic 137–176; BP diastolic 63–74; PULSE 68–80; RESP 17–20; TEMP 97.6–98.3; O2SAT 94–97
[2017-01-29] MEDS: D5-1/2 NS + KCL 20 MEQ INJ 1,000 ML IV SCH (01:07)
[2017-01-29] MEDS: CIPROFLOXACIN 400 MG PREMIX 200 ML IV SCH ×3 (04:12→19:40)
[2017-01-29] MEDS: metroNIDAZOLE 500 MG INJ 100 ML IV SCH ×4 (05:33→23:18)
[2017-01-29 07:33] LABS: AUTOMATED NEUTROPHIL # 2.6 TH/MM3 (1.8-7.7); BASOPHIL % 0.9 % (0.0-2.0); EOSINOPHIL % 0.7 % (0.0-4.0); HEMATOCRIT 27.6 % (35.0-46.0); LYMPH % 14.5 % (9.0-44.0); LYMPHOCYTE # 0.6 TH/MM3 (1.0-4.8); MEAN CELL VOLUME 88.9 FL (80.0-100.0); MEAN CORPUSCULAR HEMOGLOBIN 29.2 PG (27.0-34.0); MEAN CORPUSCULAR HGB CONC 32.9 % (32.0-36.0); MONO % 19.1 % (0.0-8.0); NEUT % 64.8 % (16.0-70.0); PLATELET COUNT 118 TH/MM3 (150-450); RED BLOOD COUNT 3.11 MIL/MM3 (4.00-5.30); RED CELL DISTRIBUTION WIDTH 14.9 % (11.6-17.2); WHITE BLOOD COUNT 4.1 TH/MM3 (4.0-11.0)
[2017-01-29 07:35] LABS: HEMO FLAGS AUTO DIFF
[2017-01-29 07:48] LABS: ANION GAP 7 MEQ/L (5-15); BICARBONATE 26.5 MEQ/L (21.0-32.0); BLOOD UREA NITROGEN 8 MG/DL (7-18); CHLORIDE 94 MEQ/L (98-107); GLOMERULAR FILTRATION RATE 148 ML/MIN (>89); MAGNESIUM 1.8 MG/DL (1.5-2.5); POTASSIUM 3.2 MEQ/L (3.5-5.1); SODIUM (NA) 127 MEQ/L (136-145)
[2017-01-29 07:53] LABS: FERRITIN 527 NG/ML (8-252); TRANSFERRIN IRON PROFILE 118 MG/DL (200-360)
[2017-01-29 09:00] LABS: BANDS 10 % (0-6); BASOPHILS 1 % (0-2); EOSINOPHILS 1 % (0-4); OVALOCYTES 1+ (NORMAL); PLATELET ESTIMATE SMEAR LOW (NORMAL); PLATELET MORPHOLOGY NORMAL (NORMAL); POLYS (SEG NEUTROPHILS) 64 % (16-70); SCAN/DIFF FINAL DIFF MANUAL; TEARDROP RBCS 1+ (NORMAL); WBC DIFF SAMPLE 100
[2017-01-29] MEDS: SODIUM CHLORIDE 0.9% FLUSH 10 ML FLUSH IV FLUSH SCH ×2 (09:00→21:19)
[2017-01-29] MEDS: ASPIRIN 325 MG TAB PO SCH (09:15)
[2017-01-29] MEDS: RAMIPRIL 5 MG CAP PO SCH ×2 (09:16→21:20)
[2017-01-29] MEDS: carBAMazepine 200 MG TAB PO SCH ×2 (09:16→21:20)
[2017-01-29] MEDS: CALCIUM CARBONATE 500 MG CHEWABLE TAB PO SCH (09:16)
[2017-01-29] MEDS: ENOXAPARIN SODIUM 40 MG/0.4 ML SYRINGE SQ SCH (09:17)
--- NOTE | 2017-01-29 09:33 | RADRPT ---
EXAM DATE/TIME: 01/29/2017 08:09 [place] COMPARISON: CT ABDOMEN & PELVIS W/O CONTRAST, January 27, 2017, 20:20. INDICATIONS : Abdomen pain and Diarrhea. MEDICAL HISTORY : Dementia. Cardiovascular disease Hypertension. Diverticulitis SURGICAL HISTORY : Kyphoplasty. ENCOUNTER: Subsequent ACUITY: 3 days PAIN SCORE: 5/10 LOCATION: Bilateral Abdomen. FINDINGS: Air is seen throughout the colon which appears nondilated. No dilated loops of small bowel are demons trated. There is no free air or pneumatosis. No abnormal calcifications are noted. Postsurgical featu res of prior L5 cement augmentation. Osseous structures appear intact. CONCLUSION: 1. Nonobstructive bowel gas pattern. Zain Cheng MD on January 29, 2017 at 9:28 Board Certified Radiologist. This report was verified electronically.
[2017-01-29] MEDS ORDERED: MAGNESIUM SULFATE 1 GM PREMIX 100 ML IV ONE (10:15)
[2017-01-29] MEDS ORDERED: NS + KCL 20 MEQ INJ 1,000 ML IV SCH (10:15)
--- NOTE | 2017-01-29 11:01 | HHI.PR ---
Subjective Remarks Follow up for acute colitis. The patient reports not feeling well again today. She states her pain has improved, however she continued to have little to no appetite. She is starting to increase her oral intake, had some Ensure shake this morning. Denies any nausea/vomiting. She has not yet had a BM. Denies fevers or chills. She states she just feels very weak. She does not feel ready for discharge. Objective Vitals Vital Signs Date Time Temp Pulse Resp B/P (MAP) Pulse Ox O2 Delivery O2 Flow Rate FiO2 01/29/17 10:24 97 21 01/29/17 07:51 97.6 68 18 140/63 (88) 97 01/29/17 04:28 97.7 69 18 138/63 (88) 95 01/29/17 04:00 72 01/29/17 00:26 98.1 76 18 155/70 (98) 94 01/29/17 00:00 78 01/28/17 21:35 93 01/28/17 20:53 99.1 77 16 147/67 (93) 93 01/28/17 20:00 84 01/28/17 16:21 67 01/28/17 14:59 98.3 72 16 150/67 (94) 97 01/28/17 12:47 98.1 72 18 164/70 (101) 96 01/28/17 12:42 74 I/O 01/28/17 01/28/17 01/28/17 01/29/17 01/29/17 01/29/17 07:00 15:00 23:00 07:00 15:00 23:00 Intake Total 100 ml 295 ml 100 ml Balance 100 ml 295 ml 100 ml Intake IV Total 100 ml 295 ml 100 ml Result Diagram: 01/29/17 0655 01/29/17 0655 Imaging Last Impressions Abdomen X-Ray 01/29/17 0000 Signed Impressions: Service Date/Time: Sunday, January 29, 2017 08:09 - CONCLUSION: 1. Nonobstructive bowel gas pattern. Zain Cheng MD Chest X-Ray 01/27/171955 Signed Impressions: Service Date/Time: Friday, January 27, 2017 20:05 - CONCLUSION: No acute disease. Cristiano Matthews MD Abdomen/Pelvis CT 01/27/171932 Signed Impressions: Service Date/Time: Friday, January 27, 2017 20:20 - CONCLUSION: 1. Thickening of the entire sigmoid colon concerning for colitis. An abscess is not seen. 2. Gallstones. 3. 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 4. 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 The patient has chronic change at the superior aspect of T12 and at the right side of the sacrum. Cristiano Matthews MD Objective Remarks GENERAL: Well-nourished, well-developed elderly female patient in NAD. SKIN: Warm and dry. No rash. HEENT: Normocephalic. Atraumatic. Pupils equal and round. Mucous membranes pink and moist. CARDIOVASCULAR: Regular rate and rhythm. S1, S2 noted. No murmur appreciated. RESPIRATORY: No accessory muscle use. Clear to auscultation. Breath sounds equal bilaterally. GASTROINTESTINAL: Abdomen soft, nondistended, mild LLQ TTP, improved. Normoactive bowel sounds x4. MUSCULOSKELETAL: No obvious deformities. Extremities without clubbing, cyanosis , or edema. NEUROLOGICAL: Awake and alert. No obvious cranial nerve deficits. Motor grossly within normal limits. Normal speech. PSYCHIATRIC: Appropriate mood and affect; insight and judgment fair. Medications and IVs Current Medications Medications (Trade) Dose Ordered Sig/Paramjit Route Start Time Stop Time Status Last Admin (NS Flush) 2 ml UNSCH PRN IV FLUSH 01/27/17 22:45 (NS Flush) 2 ml BID IV FLUSH 01/28/17 09:00 01/28/17 09:26 (Zofran Inj) 4 mg Q6H PRN IVP 01/27/17 22:45 (Narcan Inj) 0.4 mg UNSCH PRN IV PUSH 01/27/17 22:45 Metronidazole 100 ml @ 100 mls/hr Q6H IV 01/28/17 05:00 01/29/17 05:33 (Morphine Inj) 2 mg Q3H PRN IV PUSH 01/27/17 23:45 (Aspirin) 325 mg DAILY PO 01/28/17 09:00 01/29/17 09:15 (Tums Chew) 1,000 mg DAILY PO 01/28/17 09:00 01/29/17 09:16 (TEGretol) 200 mg BID PO 01/28/17 09:00 01/29/17 09:16 (Aricept) 10 mg HS PO 01/28/17 21:00 01/28/17 22:00 (Zoloft) 25 mg HS PO 01/28/17 21:00 01/28/17 21:59 (Altace) 10 mg BID PO 01/28/17 09:00 01/29/17 09:16 (Lovenox Inj) 40 mg Q24H SQ 01/28/17 09:00 01/29/17 09:17 (Pill Splitter) 1 ea UNSCH PRN OTHER 01/28/17 02:30 Ciprofloxacin/ Dextrose 200 ml @ 200 mls/hr Q8H IV 01/28/17 11:15 01/29/17 04:12 Potassium Chloride/Sodium Chloride 1,000 ml @ 84 mls/hr [id number] IV 01/29/17 10:15 01/29/17 22:09 Magnesium Sulfate/ Dextrose 100 ml @ 100 mls/hr ONCE ONCE IV 01/29/17 10:15 01/29/17 11:14 A/P Problem List: (1) Colitis, acute ICD Code: K52.9 - Noninfective gastroenteritis and colitis, unspecified Status: Acute (2) Dementia ICD Code: F03.90 - Unspecified dementia without behavioral disturbance Status: Chronic (3) Hypertension ICD Code: I10 - Essential (primary) hypertension Status: Chronic Assessment and Plan 86 y/o female brought to ED from [facility] for diarrhea and abdominal pain. The patient had a recent course of antibiotics: Acute Colitis: CT abdomen images reviewed, shows thickening of the entire sigmoid colon concerning for colitis; no abscess seen. Lactic acid 1.1. Afebrile , no leukocytosis. - check stool for c. difficile although patient has been unable to have BM, unlikely Cdiff - Continue antibiotics with IV Flagyl and IV Cipro - Supportive treatment with IVF, antiemetics prn, and pain control with IV morphine prn - Initially kept NPO, advanced to clear liquids - monitor for improvement Dementia - continue home medications Hypertension - continue home medications - monitor trends in bp and adjust treatment accordingly Normocytic Anemia: Hgb 10.9 upon arrival, decreased to 9.1 overnight, suspect dilutional - iron studies/ferritin labs reviewed, consistent with chronic anemia - check stool hemoccult if patient has BM - monitor CBC, currently stable with Hgb 8.1 Hyponatremia: Na 127 today, likely secondary to poor oral intake -change IV fluids to NS -monitor BMP Hypokalemia: K 3.2, suspect secondary to decreased oral intake -give IV and po KCl replacement -Mag 1.8, give IV Mag Sulfate x1G -monitor BMP, replace electrolytes as needed DVT prophylaxis- Lovenox 40 mg subq q24h Discharge Planning Discharge pending further clinical improvement and increase oral intake, likely needs additional 1-2 days of IV antibiotics. Rica Ramachandran PA-C Jan 29, 2017 11:01 am
[2017-01-29] MEDS ORDERED: SODIUM CHLOR 0.9% 250 ML INJ 250 ML IV ONE (11:30)
[2017-01-29] MEDS: SERTRALINE HCL 50 MG TAB PO SCH (21:20)
[2017-01-29] MEDS: DONEPEZIL HCL 5 MG TAB PO SCH (21:20)
[2017-01-30 00:33] VITALS: BP 172/79; PULSE 81; RESP 18; TEMP 97.5; O2SAT 97
[2017-01-30] MEDS ORDERED: cloNIDine HCL 0.1 MG TAB PO ONE (02:30)
[2017-01-30] MEDS: CIPROFLOXACIN 400 MG PREMIX 200 ML IV SCH (02:53)
[2017-01-30 05:24] VITALS: BP 93/45; PULSE 66; RESP 19; TEMP 97.6; O2SAT 96
[2017-01-30] MEDS: metroNIDAZOLE 500 MG INJ 100 ML IV SCH ×4 (05:46→23:16)
[2017-01-30 07:27] LABS: AUTOMATED NEUTROPHIL # 4.3 TH/MM3 (1.8-7.7); BASOPHIL % 0.6 % (0.0-2.0); EOSINOPHIL # 0.3 TH/MM3 (0-0.4); EOSINOPHIL % 4.9 % (0.0-4.0); HEMATOCRIT 28.8 % (35.0-46.0); HEMO FLAGS DIFF FINAL; LYMPH % 9.3 % (9.0-44.0); LYMPHOCYTE # 0.6 TH/MM3 (1.0-4.8); MEAN CELL VOLUME 88.5 FL (80.0-100.0); MEAN CORPUSCULAR HEMOGLOBIN 28.5 PG (27.0-34.0); MEAN CORPUSCULAR HGB CONC 32.2 % (32.0-36.0); MONO % 12.6 % (0.0-8.0); NEUT % 72.6 % (16.0-70.0); PLATELET COUNT 125 TH/MM3 (150-450); RED BLOOD COUNT 3.26 MIL/MM3 (4.00-5.30); RED CELL DISTRIBUTION WIDTH 15.4 % (11.6-17.2)
[2017-01-30 08:12] LABS: BICARBONATE 27.5 MEQ/L (21.0-32.0)
[2017-01-30 08:22] VITALS: BP 140/61; PULSE 75; RESP 21; TEMP 97.6; O2SAT 99
[2017-01-30 08:34] LABS: POTASSIUM 2.9 MEQ/L (3.5-5.1)
[2017-01-30] MEDS ORDERED: POTASSIUM CHLORIDE 10 MEQ CONTROLLED RELEASE TAB PO ONE (09:00)
[2017-01-30] MEDS: SODIUM CHLORIDE 0.9% FLUSH 10 ML FLUSH IV FLUSH SCH ×2 (09:00→21:25)
[2017-01-30] MEDS: CALCIUM CARBONATE 500 MG CHEWABLE TAB PO SCH (09:27)
[2017-01-30] MEDS: carBAMazepine 200 MG TAB PO SCH ×2 (09:28→21:25)
[2017-01-30] MEDS: ASPIRIN 325 MG TAB PO SCH (09:28)
[2017-01-30] MEDS: ENOXAPARIN SODIUM 40 MG/0.4 ML SYRINGE SQ SCH (09:29)
[2017-01-30] MEDS: POTASSIUM CHLOR 20 MEQ PREMIX 100 ML IV SCH ×2 (09:29→12:58)
[2017-01-30] MEDS: RAMIPRIL 5 MG CAP PO SCH ×2 (09:29→21:25)
--- NOTE | 2017-01-30 11:35 | HHI.PR ---
Subjective Remarks Follow up acute colitis. Patient seen and examined today, lying in bed sleeping. Awakens to voice and gentle stimuli, patient is frustrated to be woken up. States she wants people to leave her alone to sleep, did not sleep well last night. Denies any continued abdominal pain. Admits to poor appetite, decreased PO intake. Denies any nausea or vomiting. Denies any fever or chills. Objective Vitals Vital Signs Date Time Temp Pulse Resp B/P (MAP) Pulse Ox O2 Delivery O2 Flow Rate FiO2 01/30/17 08:22 97.6 75 21 140/61 (87) 99 01/30/17 05:24 97.6 66 19 93/45 (61) 96 01/30/17 00:33 97.5 81 18 172/79 (110) 97 01/29/17 20:13 95 01/29/17 19:55 98.3 73 19 142/65 (90) 96 01/29/17 15:31 98.3 72 17 176/74 (108) 96 01/29/17 12:09 97.7 69 19 158/69 (98) 95 Result Diagram: 01/30/17 0700 01/30/17 0700 Imaging Last Impressions Abdomen X-Ray 01/29/17 0000 Signed Impressions: Service Date/Time: Sunday, January 29, 2017 08:09 - CONCLUSION: 1. Nonobstructive bowel gas pattern. Zain Cheng MD Chest X-Ray 01/27/171955 Signed Impressions: Service Date/Time: Friday, January 27, 2017 20:05 - CONCLUSION: No acute disease. Cristiano Matthews MD Abdomen/Pelvis CT 01/27/171932 Signed Impressions: Service Date/Time: Friday, January 27, 2017 20:20 - CONCLUSION: 1. Thickening of the entire sigmoid colon concerning for colitis. An abscess is not seen. 2. Gallstones. 3. 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 4. 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 The patient has chronic change at the superior aspect of T12 and at the right side of the sacrum. Cristiano Matthews MD Objective Remarks GENERAL: Well-nourished, well-developed elderly female patient in [place]. SKIN: Warm and dry. No rash. HEENT: Normocephalic. Atraumatic. Pupils equal and round. Mucous membranes pink and moist. CARDIOVASCULAR: Regular rate and rhythm. S1, S2 noted. No murmur appreciated. RESPIRATORY: No accessory muscle use. Clear to auscultation. Breath sounds equal bilaterally. GASTROINTESTINAL: Abdomen soft, nondistended. No tenderness today. Normoactive bowel sounds x4. MUSCULOSKELETAL: No obvious deformities. Extremities without clubbing, cyanosis , or edema. NEUROLOGICAL: Awake and alert. No obvious cranial nerve deficits. Motor grossly within normal limits. Normal speech. PSYCHIATRIC: Appropriate mood and affect; insight and judgment fair. A/P Problem List: (1) Colitis, acute ICD Code: K52.9 - Noninfective gastroenteritis and colitis, unspecified Status: Acute (2) Dementia ICD Code: F03.90 - Unspecified dementia without behavioral disturbance Status: Chronic (3) Hypertension ICD Code: I10 - Essential (primary) hypertension Status: Chronic Assessment and Plan 86 y/o female brought to ED from [facility] for diarrhea and abdominal pain. The patient had a recent course of antibiotics: Acute Colitis: CT abdomen images reviewed, shows thickening of the entire sigmoid colon concerning for colitis; no abscess seen. Lactic acid 1.1. Afebrile , no leukocytosis. - check stool for c. difficile although patient has been unable to have BM, unlikely Cdiff. Has not had a BM yet. - Continue antibiotics with IV Flagyl. Add Ceftriaxone for coverage of both colitis and UTI. Will DC Cipro. - Supportive treatment with IVF, antiemetics prn, and pain control with IV morphine prn - Initially kept NPO, advanced to clear liquids as tolerated. - monitor for improvement Urinary tract infection: Urine culture growing e coli. Started Rocephin IV. Denies any urinary complaints. Continue to monitor. Dementia - continue home medications Hypertension - continue home medications - monitor trends in bp and adjust treatment accordingly Normocytic Anemia: Hgb 10.9 upon arrival, decreased to 9.3 overnight, suspect dilutional - iron studies/ferritin labs reviewed, consistent with chronic anemia - check stool Hemoccult if patient has BM - monitor CBC, currently stable with Hgb 8.1 Hyponatremia: Na 131 today, likely secondary to poor oral intake -continue IVF -monitor BMP Hypokalemia: K 2.9, suspect secondary to decreased oral intake -give IV and po KCl replacement -Mag 2.0 s/p replacement. -monitor BMP, replace electrolytes as needed DVT prophylaxis- Lovenox 40 mg subq q24h Discharge Planning Discharge pending further clinical improvement and increase oral intake, likely needs additional 1-2 days of IV antibiotics. Mei Khan Jan 30, 2017 11:35
[2017-01-30] MEDS ORDERED: cefTRIAXone INJ 1,000 MG in SODIUM CHLORIDE 0.9% INJ 100 ML IV SCH (12:00)
[2017-01-30 13:14] VITALS: BP 160/71; PULSE 77; RESP 18; TEMP 97.7; O2SAT 95
[2017-01-30 17:30] VITALS: BP 145/67; PULSE 75; RESP 18; TEMP 98.4; O2SAT 96
[2017-01-30 20:39] VITALS: BP 163/72; PULSE 72; RESP 16; TEMP 98.3; O2SAT 96
[2017-01-30] MEDS: DONEPEZIL HCL 5 MG TAB PO SCH (21:22)
[2017-01-30] MEDS: SERTRALINE HCL 50 MG TAB PO SCH (21:24)
[2017-01-30 22:58] LABS: C. DIFF EPI 027 PRESUMPTIVE NEGATIVE (NEGATIVE)
[2017-01-31] VITALS (11 sets, daily range): BP systolic 119–188; BP diastolic 55–87; PULSE 65–107; RESP 16–18; TEMP 96.6–98.3; O2SAT 94–97
[2017-01-31] MEDS: metroNIDAZOLE 500 MG INJ 100 ML IV SCH (04:05)
[2017-01-31] MEDS ORDERED: amLODIPine BESYLATE 5 MG TAB PO ONE (05:00)
--- NOTE | 2017-01-31 10:31 | HHI.PR ---
Subjective Remarks Follow up acute colitis. Patient seen and examined today, lying in bed sleeping. Patient awakens to voice, opens eyes. She is very irritable states she is "very sick". She admits to a poor appetite. Has "not ate in several days ". Patient does complain of abdominal pain to palpation. Denies any recent fever , chills, cough, shortness of breath. Per bedside RN, she had a few bouts of nausea and vomiting this morning with Zofran administration. Objective Vitals Vital Signs Date Time Temp Pulse Resp B/P (MAP) Pulse Ox O2 Delivery O2 Flow Rate FiO2 01/31/17 08:41 97.6 81 16 151/68 (95) 94 01/31/17 06:07 74 01/31/17 04:00 98.1 81 16 188/79 (115) 97 01/31/17 00:00 96.6 79 16 163/70 (101) 97 01/30/17 20:39 98.3 72 16 163/72 (102) 96 01/30/17 17:30 98.4 75 18 145/67 (93) 96 01/30/17 13:14 97.7 77 18 160/71 (100) 95 Result Diagram: 01/30/17 0700 01/30/17 1824 Imaging Last Impressions Abdomen X-Ray 01/29/17 0000 Signed Impressions: Service Date/Time: Sunday, January 29, 2017 08:09 - CONCLUSION: 1. Nonobstructive bowel gas pattern. Zain Cheng MD Chest X-Ray 01/27/171955 Signed Impressions: Service Date/Time: Friday, January 27, 2017 20:05 - CONCLUSION: No acute disease. Cristiano Matthews MD Abdomen/Pelvis CT 01/27/171932 Signed Impressions: Service Date/Time: Friday, January 27, 2017 20:20 - CONCLUSION: 1. Thickening of the entire sigmoid colon concerning for colitis. An abscess is not seen. 2. Gallstones. 3. 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 4. 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 The patient has chronic change at the superior aspect of T12 and at the right side of the sacrum. Cristiano Matthews MD Objective Remarks GENERAL: Well-nourished, well-developed elderly female patient in [facility]. SKIN: Warm and dry. No rash. HEENT: Normocephalic. Atraumatic. Pupils equal and round. Mucous membranes pink and moist. CARDIOVASCULAR: Regular rate and rhythm. S1, S2 noted. No murmur appreciated. RESPIRATORY: No accessory muscle use. Clear to auscultation. Breath sounds equal bilaterally. GASTROINTESTINAL: Abdomen soft, nondistended. Rebound tenderness to right upper and lower quadrat, as well as periumbilical area. Normoactive bowel sounds x4. MUSCULOSKELETAL: No obvious deformities. Extremities without clubbing, cyanosis , or edema. NEUROLOGICAL: Awake and alert. No obvious cranial nerve deficits. Motor grossly within normal limits. Normal speech. PSYCHIATRIC: Appropriate mood and affect; insight and judgment fair. A/P Problem List: (1) Colitis, acute ICD Code: K52.9 - Noninfective gastroenteritis and colitis, unspecified Status: Acute (2) Dementia ICD Code: F03.90 - Unspecified dementia without behavioral disturbance Status: Chronic (3) Hypertension ICD Code: I10 - Essential (primary) hypertension Status: Chronic Assessment and Plan 86 y/o female brought to ED from [facility] for diarrhea and abdominal pain. The patient had a recent course of antibiotics: Acute Colitis: CT abdomen images reviewed, shows thickening of the entire sigmoid colon concerning for colitis; no abscess seen. Lactic acid 1.1. Afebrile , no leukocytosis. - check stool for c. difficile although patient has been unable to have BM, unlikely Cdiff. Has not had a BM yet. - Flagyl may be contributing to poor PO intake and feeling poorly. Will switch to Zosyn IV to cover both colitis and UTI. DC IV Flagyl and IV Ceftriaxone. - Supportive treatment with IVF, antiemetics prn, and pain control with IV morphine prn - Initially kept NPO, advanced to clear liquids as tolerated. - monitor for improvement. - Sales Attendant consulted, appreciate input regarding further recommendations or supplementations. Urinary tract infection: Urine culture growing e coli. Sensitive to Zosyn, continue. Denies any urinary complaints. Continue to monitor. Dementia - continue home medications Hypertension - continue home medications - monitor trends in bp and adjust treatment accordingly. BP elevated overnight, now within normal limits suspect pain related. Monitor. Normocytic Anemia - iron studies/ferritin labs reviewed, consistent with chronic anemia - check stool Hemoccult if patient has BM - monitor CBC, currently stable with Hgb 8.1. Awaiting labs this am, pending. Hyponatremia suspect secondary to poor PO intake -continue IVF -monitor BMP, labs pending today. Follow. Hypokalemia suspect secondary to poor PO intake. -monitor BMP, replace electrolytes as needed. Moderate malnutrition Failure to thrive - Consulted emt/dispatcher. Appreciate recommendations. - Consulted palliative care for further assistance in determining goals of care, appreciate recommendations. DVT prophylaxis- Lovenox 40 mg subq q24h Discharge Planning Discharge pending further clinical improvement and increase oral intake, likely needs additional 1-2 days of IV antibiotics. Mei Khan Jan 31, 2017 10:31
[2017-01-31] MEDS: ENOXAPARIN SODIUM 40 MG/0.4 ML SYRINGE SQ SCH (10:53)
[2017-01-31] MEDS: carBAMazepine 200 MG TAB PO SCH ×2 (10:53→20:56)
[2017-01-31] MEDS: ASPIRIN 325 MG TAB PO SCH ×2 (10:54→10:55)
[2017-01-31] MEDS: RAMIPRIL 5 MG CAP PO SCH ×2 (10:54→20:57)
[2017-01-31] MEDS: PIPERACIL-TAZO 3.375 GM PREMIX 50 ML IV SCH ×3 (10:56→22:18)
[2017-01-31] MEDS: CALCIUM CARBONATE 500 MG CHEWABLE TAB PO SCH (10:56)
[2017-01-31] MEDS: SODIUM CHLORIDE 0.9% FLUSH 10 ML FLUSH IV FLUSH SCH ×2 (10:56→20:57)
[2017-01-31] MEDS: SODIUM CHLOR 0.9% 1000 ML INJ 1,000 ML IV SCH ×2 (11:00→22:18)
[2017-01-31 11:24] LABS: AUTOMATED NEUTROPHIL # 6.6 TH/MM3 (1.8-7.7); BASOPHIL % 0.5 % (0.0-2.0); EOSINOPHIL # 0.1 TH/MM3 (0-0.4); EOSINOPHIL % 0.6 % (0.0-4.0); HEMO FLAGS DIFF FINAL; LYMPH % 8.7 % (9.0-44.0); LYMPHOCYTE # 0.7 TH/MM3 (1.0-4.8); MEAN CELL VOLUME 88.6 FL (80.0-100.0); MEAN CORPUSCULAR HEMOGLOBIN 29.1 PG (27.0-34.0); MEAN CORPUSCULAR HGB CONC 32.9 % (32.0-36.0); MONO % 7.3 % (0.0-8.0); NEUT % 82.9 % (16.0-70.0); PLATELET COUNT 152 TH/MM3 (150-450); RED CELL DISTRIBUTION WIDTH 15.4 % (11.6-17.2)
[2017-01-31 12:27] LABS: BICARBONATE 26.4 MEQ/L (21.0-32.0); POTASSIUM 3.5 MEQ/L (3.5-5.1)
[2017-01-31] MEDS ORDERED: cloNIDine HCL 0.1 MG TAB PO PRN (17:15)
[2017-01-31] MEDS: DONEPEZIL HCL 5 MG TAB PO SCH (20:56)
[2017-01-31] MEDS: SERTRALINE HCL 50 MG TAB PO SCH (20:56)
[2017-02-01 02:20] VITALS: BP 180/81; PULSE 77; RESP 16; TEMP 96.9; O2SAT 93
[2017-02-01] MEDS: PIPERACIL-TAZO 3.375 GM PREMIX 50 ML IV SCH ×3 (04:33→15:16)
[2017-02-01 08:00] VITALS: BP 154/79; PULSE 74; RESP 18; TEMP 95.7; O2SAT 96
[2017-02-01 08:08] VITALS: PULSE 67
[2017-02-01] MEDS: SODIUM CHLOR 0.9% 1000 ML INJ 1,000 ML IV SCH ×3 (09:50→23:45)
[2017-02-01] MEDS: SODIUM CHLORIDE 0.9% FLUSH 10 ML FLUSH IV FLUSH SCH ×2 (10:00→21:00)
[2017-02-01] MEDS: CALCIUM CARBONATE 500 MG CHEWABLE TAB PO SCH (10:00)
[2017-02-01] MEDS: carBAMazepine 200 MG TAB PO SCH ×2 (10:00→23:43)
[2017-02-01] MEDS: RAMIPRIL 5 MG CAP PO SCH ×2 (10:01→23:43)
[2017-02-01] MEDS: ASPIRIN 325 MG TAB PO SCH (10:01)
[2017-02-01] MEDS: ENOXAPARIN SODIUM 40 MG/0.4 ML SYRINGE SQ SCH (10:02)
--- NOTE | 2017-02-01 10:32 | PD.CONS ---
Consult Service Palliative Care Consult Requested By Erin Primary Care Physician Unknown Reason for Consultation a. To assist with evaluation and management of symptoms including:abdominal pain, nausea and vomiting. b. To assist medical decision maker(s) with: better understanding of current medical conditions; weighing benefits/burdens of medical treatment options; making medical treatment decisions. HPI History of Present Illness 86-year-old with past medical history of high cholesterol, CVA, dementia, diverticulitis, hypertension. Presented to the hospital from [facility] on 01/27/2017, secondary to abdominal pain and diarrhea for the past 10 days. It is reported the patient had been on antibiotics. In the ER: * WBC 7.4, hemoglobin was 10.9, hematocrit is 32.7, platelets 172 * Sodium is 133, potassium 3.3, chloride is 96, bicarbonate 20.4, BUN is 14, creatinine is 0.58 * PT is 11.3, INR is 1.0, PTT is 35.0 * UA shows many bacteria small, occult blood * Urine culture collected * Abdominal CT shows thickening of the entire sigmoid colon concerning for colitis. There is no abscess seen. * Chest x-ray shows no acute disease Patient admitted to the hospitalist service as. It is noted by initial hospitalist evaluation, the patient has a history of DNR and the patient's daughter is POA per senior living records. 01/28/2017-patient continued to have pain in her stomach, unable to tell when her last BM was. Patient's colitis is treated with IV Flagyl and Cipro, supportive IV fluids, nothing by mouth and advanced to clear liquids tonight. Patient was kept in the hospital to monitor for signs of improvement. 01/29/2017-hemoglobin decrease likely dilutional. Patient continue to be supported with IV fluids. Patient has advanced to clear liquids. IV Flagyl and Cipro continues. Non obstructive gas patter on abdominal x ray. 01/30/2017-patient denies any abdominal pain, but continued to have poor appetite with decreased by mouth intake. * C. difficile toxin PCR and EpidO27 is negative. 01/31/2017- pt has a few bouts of nausa and vomiting. Pt has not ate in several days, and continue to complain of abdominal pain. UTI shows E.coli. In summary 86 year old with Alzheimer's, FTT (albumin 2.1-2.6) came in with abdominal pain. Pt is found to have colitis, hemooccult postive stool, with poor appetite. Palliative Care consulted to review goals of care. Today on my visit pt is denies pain currently, but state when it comes its and mid abdominal area. Denies nausea or vomiting this morning. Awaiting call back from daughter. Function/Cognitive Trajectory Has chronic neck and back pain. Had surgery for kyphosis in 10/2016. Poor appetite. Review of Systems ROS Limitations: Clinical Condition Constitutional: COMPLAINS OF: Fatigue Eyes: DENIES: Blurred vision, Eye inflammation Respiratory: DENIES: Cough Cardiovascular: COMPLAINS OF: Lower Extremity Edema, DENIES: Chest pain, Palpitations Gastrointestinal: COMPLAINS OF: Abdominal pain, Diarrhea, Nausea Musculoskeletal: COMPLAINS OF: Back pain Past Family Social History Coded Allergies: No Known Allergies (Unverified , 01/27/17) Past Medical History * Hypertension * TIA * Diverticulosis * Osteoporosis Past Surgical History Back surgery (L5 Kyphoplasty by Dr. Quezada per EMR 11/02/2016) . Reported Medications Methadone (Methadone HCl) 5 Mg Tab 2.5 Mg PO DAILY Imodium A-D (Loperamide HCl) 2 Mg Capsule 2 Mg PO DIRECTED PRN One capsule after each loose stool. Not to exceed 8 tablets per day. Tegretol (Carbamazepine) 200 Mg Tab 200 Mg PO BID Meloxicam 7.5 Mg Tab 7.5 Mg PO DAILY Aricept (Donepezil) 23 Mg Tab 10 Mg PO HS Do not split, crushed or chewed. Prednisone 10 Mg Tab 10 Mg PO DAILY Aricept (Donepezil HCl) 10 Mg Tablet Tylenol (Acetaminophen) 325 Mg Tab 650 Mg PO Q4H PRN Tums (Calcium Carbonate (Antacid)) 500 Mg Chew 1,000 Mg PO DAILY Zoloft (Sertraline HCl) 25 Mg Tab 25 Mg PO HS Lidocaine Topical (Lidocaine HCl) 5 % Oint 1 TOPICAL Q8HR PRN Apply to lt forearm Imodium A-D (Loperamide HCl) 2 Mg Capsule 2 Mg PO Q6H PRN Tegretol-Xr 12 HR (Carbamazepine) 100 Mg Tab 100 Mg PO Q12HR Fentanyl Patch 72 HR (Fentanyl) 25 Mcg/Hr Patch 25 Mcg T-DERMAL Q72H Vitamin B-12 (Cyanocobalamin) 1,000 Mcg Subl 1,000 Mcg SL DAILY Senna-Plus (Sennosides-Docusate Sodium) 8.6-50 Mg Tab 2 Tab PO DAILY PRN Raloxifene (Raloxifene HCl) 60 Mg Tab 60 Mg PO DAILY Ramipril 10 Mg Cap 10 Mg PO BID Aspirin 325 Mg Tab 325 Mg PO DAILY Current Medications Medications (Trade) Dose Ordered Sig/Paramjit Route Start Time Stop Time Status Last Admin (NS Flush) 2 ml UNSCH PRN IV FLUSH 01/27/17 22:45 (NS Flush) 2 ml BID IV FLUSH 01/28/17 09:00 01/31/17 10:56 (Zofran Inj) 4 mg Q6H PRN IVP 01/27/17 22:45 01/31/17 07:58 (Narcan Inj) 0.4 mg UNSCH PRN IV PUSH 01/27/17 22:45 (Morphine Inj) 2 mg Q3H PRN IV PUSH 01/27/17 23:45 (Aspirin) 325 mg DAILY PO 01/28/17 09:00 01/31/17 10:55 (Tums Chew) 1,000 mg DAILY PO 01/28/17 09:00 01/31/17 10:56 (TEGretol) 200 mg BID PO 01/28/17 09:00 01/31/17 20:56 (Aricept) 10 mg HS PO 01/28/17 21:00 01/31/17 20:56 (Zoloft) 25 mg HS PO 01/28/17 21:00 01/31/17 20:56 (Altace) 10 mg BID PO 01/28/17 09:00 01/31/17 20:57 (Lovenox Inj) 40 mg Q24H SQ 01/28/17 09:00 01/31/17 10:53 (Pill Splitter) 1 ea UNSCH PRN OTHER 01/28/17 02:30 Sodium Chloride 1,000 ml @ 84 mls/hr [id number] IV 01/31/17 10:00 01/31/17 22:18 Piperacillin Sod/ Tazobactam Sod 50 ml @ 100 mls/hr Q6H IV 01/31/17 10:00 02/01/17 04:33 (Catapres) 0.1 mg Q6H PRN PO 01/31/17 17:15 02/01/17 04:35 Family History Patient reported /denies diabetes or cancers in the family . Substance Use Tobacco: History of smoking quit 10 years ago Alcohol: No Prescription med abuse: No Illicits:no Psychosocial History Daughter Briana Guillen [phone] Spiritual/Cultural Factors Advent Durable Power of Anesthesiologist Assistant: Copy in medical record ( Executed 20 May 2005. ) Ethical and Legal Issues copy in med rec appears incomplete. Physical Exam Vital Signs Date Time Temp Pulse Resp B/P (MAP) Pulse Ox O2 Delivery O2 Flow Rate FiO2 02/01/17 02:20 96.9 77 16 180/81 (114) 93 01/31/17 23:22 97.7 78 17 138/87 (104) 97 01/31/17 20:01 98.1 81 18 183/61 (101) 97 01/31/17 17:30 98.0 81 16 175/78 (110) 96 01/31/17 16:02 98.2 85 16 186/79 (114) 96 01/31/17 15:00 77 01/31/17 11:45 98.3 107 16 119/55 (76) 95 Exam CONSTITUTIONAL/GENERAL: This is an adequately frail elderly female, pleasant, not agitated.. SKIN: No jaundice, rashes, or lesions. Ecchymoses on upper extremities. No wounds seen anteriorly. Skin temperature appropriate. Not diaphoretic. HEAD: Atraumatic. Normocephalic. EYES: Pupils equal and round and reactive. Extraocular motions intact. No scleral icterus. No injection or drainage. Fundi not examined. ENT: Hearing grossly normal. Nose without bleeding or purulent drainage. Throat without visible erythema, exudates, masses, or lesions. NECK: Trachea midline. Supple, nontender. No palpable thyroid enlargement or nodularity. CARDIOVASCULAR: Regular rate and rhythm without murmurs, gallops, or rubs. No JVD. Peripheral pulses symmetric. RESPIRATORY/CHEST: Symmetric, unlabored respirations. Clear to auscultation. Breath sounds equal bilaterally. No wheezes, rales, or rhonchi. GASTROINTESTINAL: Abdomen soft, non-tender, nondistended. Bowel sounds present. GENITOURINARY: Without palpable bladder distension. Ly catheter in place. MUSCULOSKELETAL: Extremities without clubbing, cyanosis, or edema. No joint tenderness or effusion noted. No calf tenderness. No mottling or clubbing. LYMPHATICS: No palpable cervical or supraclavicular adenopathy. NEUROLOGICAL: Awake and alert. Motor and sensory grossly within normal limits. Follows commands. Poor short term memory, unable remember when she had last stool, or how she was doing in her BELEM. PSYCHIATRIC: No obvious anxiety/depression. no apparent hallucinations or other psychotic thought process. Diagnostic Tests Laboratory Laboratory Tests Test 01/30/17 07:00 01/30/17 18:24 01/30/17 18:40 01/31/17 11:02 White Blood Count 6.0 TH/MM3 (4.0-11.0) 8.0 TH/MM3 (4.0-11.0) Red Blood Count 3.26 MIL/MM3 (4.00-5.30) 3.50 MIL/MM3 (4.00-5.30) Hemoglobin 9.3 GM/DL (11.6-15.3) 10.2 GM/DL (11.6-15.3) Hematocrit 28.8 % (35.0-46.0) 31.0 % (35.0-46.0) Mean Corpuscular Volume 88.5 FL (80.0-100.0) 88.6 FL (80.0-100.0) Mean Corpuscular Hemoglobin 28.5 PG (27.0-34.0) 29.1 PG (27.0-34.0) Mean Corpuscular Hemoglobin Concent 32.2 % (32.0-36.0) 32.9 % (32.0-36.0) Red Cell Distribution Width 15.4 % (11.6-17.2) 15.4 % (11.6-17.2) Platelet Count 125 TH/MM3 (150-450) 152 TH/MM3 (150-450) Mean Platelet Volume 8.8 FL (7.0-11.0) 9.0 FL (7.0-11.0) Neutrophils (%) (Auto) 72.6 % (16.0-70.0) 82.9 % (16.0-70.0) Lymphocytes (%) (Auto) 9.3 % (9.0-44.0) 8.7 % (9.0-44.0) Monocytes (%) (Auto) 12.6 % (0.0-8.0) 7.3 % (0.0-8.0) Eosinophils (%) (Auto) 4.9 % (0.0-4.0) 0.6 % (0.0-4.0) Basophils (%) (Auto) 0.6 % (0.0-2.0) 0.5 % (0.0-2.0) Neutrophils # (Auto) 4.3 TH/MM3 (1.8-7.7) 6.6 TH/MM3 (1.8-7.7) Lymphocytes # (Auto) 0.6 TH/MM3 (1.0-4.8) 0.7 TH/MM3 (1.0-4.8) Monocytes # (Auto) 0.7 TH/MM3 (0-0.9) 0.6 TH/MM3 (0-0.9) Eosinophils # (Auto) 0.3 TH/MM3 (0-0.4) 0.1 TH/MM3 (0-0.4) Basophils # (Auto) 0.0 TH/MM3 (0-0.2) 0.0 TH/MM3 (0-0.2) CBC Comment DIFF FINAL DIFF FINAL Differential Comment Blood Urea Nitrogen 5 MG/DL (7-18) 12 MG/DL (7-18) Creatinine 0.58 MG/DL (0.50-1.00) 1.25 MG/DL (0.50-1.00) Random Glucose 99 MG/DL (74-106) 100 MG/DL (74-106) Calcium Level 7.8 MG/DL (8.5-10.1) 8.5 MG/DL (8.5-10.1) Magnesium Level 2.0 MG/DL (1.5-2.5) Sodium Level 131 MEQ/L (136-145) 134 MEQ/L (136-145) Potassium Level 2.9 MEQ/L (3.5-5.1) 4.5 MEQ/L (3.5-5.1) 3.5 MEQ/L (3.5-5.1) Chloride Level 96 MEQ/L (98-107) 99 MEQ/L (98-107) Carbon Dioxide Level 27.5 MEQ/L (21.0-32.0) 26.4 MEQ/L (21.0-32.0) Anion Gap 8 MEQ/L (5-15) 9 MEQ/L (5-15) Estimat Glomerular Filtration Rate 99 ML/MIN (>89) 41 ML/MIN (>89) Stool C. difficile Toxin (PCR) NEGATIVE (NEGATIVE) Stl C. difficile Toxin Epiderm 027 PRESUMPTIVE NEGATIVE Result Diagram: 01/31/17 1102 01/31/17 1102 Microbiology Microbiology Date/Time Source Procedure Growth Status 01/30/17 18:40 Stool Stool Stool Occult Blood (JESSY) - Final HEMOCCULT POSITIVE Complete Imaging Last Impressions Abdomen X-Ray 01/29/17 0000 Signed Impressions: Service Date/Time: Sunday, January 29, 2017 08:09 - CONCLUSION: 1. Nonobstructive bowel gas pattern. Zain Cheng MD Chest X-Ray 01/27/171955 Signed Impressions: Service Date/Time: Friday, January 27, 2017 20:05 - CONCLUSION: No acute disease. Cristiano Matthews MD Abdomen/Pelvis CT 01/27/171932 Signed Impressions: Service Date/Time: Friday, January 27, 2017 20:20 - CONCLUSION: 1. Thickening of the entire sigmoid colon concerning for colitis. An abscess is not seen. 2. Gallstones. 3. 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 4. 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 The patient has chronic change at the superior aspect of T12 and at the right side of the sacrum. Cristiano Matthews MD Patient/Family Conference Present at Family Conference: Awaiting daughter/POAto call back. Left voicemail. Family Conference Time (mins): 0 Family Conference Location: Telephone Issues Discussed: * Palliative care role, purpose, approach * Additional medical, psychosocial, and spiritual history * Patients general health, functional status, and cognitive changes in the months leading up to the current hospitalization * Patient/family understanding of the current medical problems * Patient/family understanding of prognosis * Patients goals of care as best understood from advance directives and/or conversations and/or values * Current medical treatment options and benefits/burdens of those options * Likely scenarios comparing ongoing aggressive care with a transition to comfort measures only * Questions answered to the best of my ability * Palliative care contact information provided Assessment and Plan Disease Oriented Problem List: (1) Colitis (2) Stool guaiac positive (3) Dementia (4) Compression fracture of L5 lumbar vertebra (5) Status post kyphoplasty (6) UTI (urinary tract infection) Symptom Scale: (1) Pain 0-10 Scale: 0 Comment: abdominal, related to colitis. have some back pain in the past. (2) Nausea 0-10 Scale: 0 (3) Vomiting 0-10 Scale: 0 Pertinent Non-Medical Issues Psychosocial: Spiritual: Legal: Ethical issues impacting care: Important Contacts Daughter Briana Guillen [phone] Prognosis Given poor PO intake, current colitis, if goals were for comfort measures only, would meet hospice criteria. Plan ==POA- presumably Briana Guillen. Copy of POA appears incomplete, will follow up. == Capacity- suggest joint decision making with patient and POA at the very least. poor memory and does not appear could retain information well. == goals of care: awaiting call back from daughter. == code status: pending. awaitng daughter to call back. Had been DNR in the past. == symptoms pain- colitis. denies pain currently. nausea and vomiting. associated with colits. no n and v on my visit. no new med rec. Will monitor. == palliative care will follow up. Time Spent Total Floor Time (mins): 45 Thank you for the opportunity to participate in the care of Ms. Berrios. Attestation To help prompt me to consider important information that might be impacting today's encounter and assessment, information from prior notes written by myself or my colleagues may have been "brought forward" into today's note. My signature on this note, however, is an attestation that I personally performed the exam, history, and/or decision-making noted today, and, unless otherwise indicated, the interactions with patient, family, and staff as well as the review of records all occurred today. I also attest that the listed assessment and stated plan reflect my best clinical judgment today based on the combination of historical information, prior notes, and today's exam/ interactions. When time spent is documented, it refers only to time spent today by the signer, or if indicated, combined time spent today by collaborating physician/nurse practitioner. Tony Vee MD Feb 01, 2017 10:32
[2017-02-01 11:47] LABS: POTASSIUM 3.1 MEQ/L (3.5-5.1)
[2017-02-01 12:00] VITALS: BP 149/75; PULSE 80; RESP 18; TEMP 97.2; O2SAT 96
--- NOTE | 2017-02-01 14:24 | HHI.PR ---
Subjective Remarks Follow-up for colitis Patient feels better, hungry, would like to eat more. No nausea or vomiting. Allegedly no diarrhea. Objective Vitals Vital Signs Date Time Temp Pulse Resp B/P (MAP) Pulse Ox O2 Delivery O2 Flow Rate FiO2 02/01/17 12:00 97.2 80 18 149/75 (99) 96 02/01/17 08:00 95.7 74 18 154/79 (104) 96 02/01/17 02:20 96.9 77 16 180/81 (114) 93 01/31/17 23:22 97.7 78 17 138/87 (104) 97 01/31/17 20:01 98.1 81 18 183/61 (101) 97 01/31/17 17:30 98.0 81 16 175/78 (110) 96 01/31/17 16:02 98.2 85 16 186/79 (114) 96 01/31/17 15:00 77 I/O 01/31/17 01/31/17 01/31/17 02/01/17 02/01/17 02/01/17 07:00 15:00 23:00 07:00 15:00 23:00 Intake Total 0 ml Balance 0 ml Intake Oral 0 ml # Voids 1 # Bowel Movements 0 Result Diagram: 01/31/17 1102 02/01/17 0957 Objective Remarks GENERAL: Not in distress HEENT: Normocephalic. Atraumatic. Pupils equal and round. Mucous membranes pink, dry CARDIOVASCULAR: Regular rate and rhythm. S1, S2 noted. No murmur appreciated. RESPIRATORY: No accessory muscle use. Clear to auscultation. Breath sounds equal bilaterally. GASTROINTESTINAL: Abdomen soft, nondistended. Nontender today. MUSCULOSKELETAL: No obvious deformities. Extremities without clubbing, cyanosis , or edema. NEUROLOGICAL: Awake and alert. No obvious cranial nerve deficits. Motor grossly within normal limits. Normal speech. A/P Problem List: (1) Colitis, acute ICD Code: K52.9 - Noninfective gastroenteritis and colitis, unspecified Status: Acute (2) Dementia ICD Code: F03.90 - Unspecified dementia without behavioral disturbance Status: Chronic (3) Hypertension ICD Code: I10 - Essential (primary) hypertension Status: Chronic Assessment and Plan 86 y/o female brought to ED from [facility] for diarrhea and abdominal pain. The patient had a recent course of antibiotics: Acute Colitis: CT abdomen images reviewed, shows thickening of the entire sigmoid colon concerning for colitis; no abscess seen. Lactic acid 1.1. Afebrile , no leukocytosis. - check stool for c. difficile although patient has been unable to have BM, unlikely Cdiff. Has not had a BM yet. -Clinically better, continue Zosyn, switch to Augmentin tomorrow. - Supportive treatment with IVF, antiemetics prn, and pain control with IV morphine prn -Advance diet as tolerated. - monitor for improvement. - Director Sales And Trade [employer] consulted, appreciate input regarding further recommendations or supplementations. Urinary tract infection: Urine culture growing e coli. Sensitive to Zosyn, continue. Denies any urinary complaints. Continue to monitor. Dementia - continue home medications Hypertension - continue home medications - monitor trends in bp and adjust treatment accordingly. BP elevated overnight, now within normal limits suspect pain related. Monitor. Normocytic Anemia - iron studies/ferritin labs reviewed, consistent with chronic anemia - monitor CBC, currently stable w Hyponatremia suspect secondary to poor PO intake -Resolved Dehydration-start IVF, advance diet. Moderate malnutrition Failure to thrive - Consulted palliative care for further assistance in determining goals of care, appreciate recommendations. DVT prophylaxis- Lovenox 40 mg subq q24h Discharge Planning Possible discharge tomorrow if tolerating diet and creatinine is better Curtis Kim MD Feb 01, 2017 14:24
[2017-02-01 16:00] VITALS: BP 154/72; PULSE 82; RESP 18; TEMP 97.1; O2SAT 92
[2017-02-01] MEDS ORDERED: POTASSIUM CHLORIDE 10 MEQ CONTROLLED RELEASE TAB PO ONE (16:00)
[2017-02-01 20:00] VITALS: BP 142/68; PULSE 90; RESP 17; TEMP 97.9; O2SAT 93
[2017-02-01] MEDS: AMOXICILLIN/CLAVULANATE K 875 MG TAB PO SCH (23:42)
[2017-02-01] MEDS: DONEPEZIL HCL 5 MG TAB PO SCH (23:43)
[2017-02-01] MEDS: SERTRALINE HCL 50 MG TAB PO SCH (23:44)
[2017-02-02] VITALS: BP 156/74; PULSE 87; RESP 17; TEMP 96.8; O2SAT 95
[2017-02-02 04:00] VITALS: PULSE 100; RESP 16; TEMP 97.5; O2SAT 94
[2017-02-02 07:16] LABS: BICARBONATE 25.7 MEQ/L (21.0-32.0); POTASSIUM 3.3 MEQ/L (3.5-5.1)
[2017-02-02 08:00] VITALS: BP 182/70; PULSE 73; RESP 18; TEMP 97.2; O2SAT 96
[2017-02-02 08:10] VITALS: PULSE 79
[2017-02-02] MEDS: SODIUM CHLORIDE 0.9% FLUSH 10 ML FLUSH IV FLUSH SCH (09:59)
[2017-02-02] MEDS: RAMIPRIL 5 MG CAP PO SCH (09:59)
[2017-02-02] MEDS: CALCIUM CARBONATE 500 MG CHEWABLE TAB PO SCH (09:59)
[2017-02-02] MEDS: carBAMazepine 200 MG TAB PO SCH (09:59)
[2017-02-02] MEDS: AMOXICILLIN/CLAVULANATE K 875 MG TAB PO SCH (09:59)
[2017-02-02] MEDS: ENOXAPARIN SODIUM 40 MG/0.4 ML SYRINGE SQ SCH (10:00)
[2017-02-02] MEDS ORDERED: AMOX875T2 PO (11:10)
--- NOTE | 2017-02-02 11:14 | HHI.PR ---
Subjective Remarks Follow up Colitis/UTI 02/02/17-Patient seen and examined; tolerating PO well without any abdominal pain, nausea or emesis. Daughter by the bedside Objective Vitals Vital Signs Date Time Temp Pulse Resp B/P (MAP) Pulse Ox O2 Delivery O2 Flow Rate FiO2 02/02/17 08:00 97.2 73 18 182/70 (107) 96 02/02/17 04:00 97.5 100 16 94 02/02/17 00:00 96.8 87 17 156/74 (101) 95 02/01/17 20:00 97.9 90 17 142/68 (92) 93 02/01/17 16:00 97.1 82 18 154/72 (99) 92 02/01/17 12:00 97.2 80 18 149/75 (99) 96 I/O 02/01/17 02/01/17 02/01/17 02/02/17 02/02/17 02/02/17 07:00 15:00 23:00 07:00 15:00 23:00 Intake Total 0 ml 1233 ml 1183 ml 240 ml 50 ml Balance 0 ml 1233 ml 1183 ml 240 ml 50 ml Intake Oral 0 ml 480 ml 480 ml 240 ml IV Total 753 ml 703 ml 50 ml # Voids 1 4 4 3 # Bowel Movements 0 2 3 2 Result Diagram: 01/31/17 1102 02/02/17 0629 Imaging Last Impressions Abdomen X-Ray 01/29/17 0000 Signed Impressions: Service Date/Time: Sunday, January 29, 2017 08:09 - CONCLUSION: 1. Nonobstructive bowel gas pattern. Zain Cheng MD Chest X-Ray 01/27/171955 Signed Impressions: Service Date/Time: Friday, January 27, 2017 20:05 - CONCLUSION: No acute disease. Cristiano Matthews MD Abdomen/Pelvis CT 01/27/171932 Signed Impressions: Service Date/Time: Friday, January 27, 2017 20:20 - CONCLUSION: 1. Thickening of the entire sigmoid colon concerning for colitis. An abscess is not seen. 2. Gallstones. 3. 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 4. 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 The patient has chronic change at the superior aspect of T12 and at the right side of the sacrum. Cristiano Matthews MD Objective Remarks GENERAL: NAD SKIN: Warm and dry. HEAD: Normocephalic. EYES: No scleral icterus. No injection or drainage. NECK: Supple, trachea midline. No JVD or lymphadenopathy. CARDIOVASCULAR: Regular rate and rhythm without murmurs, gallops, or rubs. RESPIRATORY: Breath sounds equal bilaterally. No accessory muscle use. GASTROINTESTINAL: Abdomen soft, non-tender, nondistended. +BS MUSCULOSKELETAL: No cyanosis, or edema. BACK: Nontender without obvious deformity. No CVA tenderness. Procedures none A/P Problem List: (1) Colitis, acute ICD Code: K52.9 - Noninfective gastroenteritis and colitis, unspecified Status: Resolved (2) Dementia ICD Code: F03.90 - Unspecified dementia without behavioral disturbance Status: Chronic (3) Hypertension ICD Code: I10 - Essential (primary) hypertension Status: Chronic Assessment and Plan Acute Colitis: CT abdomen images reviewed, shows thickening of the entire sigmoid colon concerning for colitis; no abscess seen. Lactic acid 1.1. Afebrile , no leukocytosis. - c. difficile PCR negative -s/p Zosyn and now on Augmentin . - Supportive treatment with IVF, antiemetics prn, and pain control with IV morphine prn -Advance diet as tolerated. - monitor for improvement. - Vice Investigator consulted, appreciate input regarding further recommendations or supplementations. Urinary tract infection: Urine culture growing e coli. Sensitive to Zosyn, continue. Denies any urinary complaints. Continue to monitor. Dementia - continue home medications Hypertension - continue home medications Normocytic Anemia - iron studies/ferritin labs reviewed, consistent with chronic anemia - stable Hyponatremia suspect secondary to poor PO intake -Resolved Dehydration-Resolved Moderate malnutrition Failure to thrive - Consulted palliative care for further assistance in determining goals of care, appreciate recommendations. DVT prophylaxis- Lovenox 40 mg subq q24h Bernardo Morgan MD Feb 02, 2017 11:14
--- NOTE | 2017-02-02 11:16 | HHI.DS ---
Discharge Summary Admission Date Jan 31, 2017 at 15:14 Discharge Date: Feb 02, 2017 Admitting Diagnosis Sigmoid Colitis (1) Colitis, acute ICD Code: K52.9 - Noninfective gastroenteritis and colitis, unspecified Status: Resolved (2) Dementia ICD Code: F03.90 - Unspecified dementia without behavioral disturbance Status: Chronic (3) Hypertension ICD Code: I10 - Essential (primary) hypertension Status: Chronic Procedures none Brief History - From Admission Written by Lynn Sharma, acting as scribe for Dr. Blair on 01/27/17 at 23:25. The patient reports that she has had diarrhea "too damn long" The patient reports dark stool and abdominal pain, denies fever, chest pain, shortness of breath, palpations, dizziness, or syncope Reports foul-smelling stool Reports dysuria, denies hematuria The patient is very irritable and grumpy. She makes it clear throughout visit that she'd like to be left alone. CBC/BMP: 01/31/17 1102 02/02/17 0629 Significant Findings Laboratory Tests Test 01/30/17 18:24 01/30/17 18:40 01/31/17 11:02 02/01/17 09:57 Red Blood Count 3.50 MIL/MM3 (4.00-5.30) Hemoglobin 10.2 GM/DL (11.6-15.3) Hematocrit 31.0 % (35.0-46.0) Neutrophils (%) (Auto) 82.9 % (16.0-70.0) Lymphocytes (%) (Auto) 8.7 % (9.0-44.0) Lymphocytes # (Auto) 0.7 TH/MM3 (1.0-4.8) Creatinine 1.25 MG/DL (0.50-1.00) 1.44 MG/DL (0.50-1.00) Sodium Level 134 MEQ/L (136-145) Estimat Glomerular Filtration Rate 41 ML/MIN (>89) 35 ML/MIN (>89) Calcium Level 7.9 MG/DL (8.5-10.1) Potassium Level 3.1 MEQ/L (3.5-5.1) Test 02/02/17 06:29 Creatinine 1.31 MG/DL (0.50-1.00) Calcium Level 7.7 MG/DL (8.5-10.1) Potassium Level 3.3 MEQ/L (3.5-5.1) Chloride Level 108 MEQ/L (98-107) Estimat Glomerular Filtration Rate 39 ML/MIN (>89) Imaging Last Impressions Abdomen X-Ray 01/29/17 0000 Signed Impressions: Service Date/Time: Sunday, January 29, 2017 08:09 - CONCLUSION: 1. Nonobstructive bowel gas pattern. Zain Cheng MD Chest X-Ray 01/27/171955 Signed Impressions: Service Date/Time: Friday, January 27, 2017 20:05 - CONCLUSION: No acute disease. Cristiano Matthews MD Abdomen/Pelvis CT 01/27/171932 Signed Impressions: Service Date/Time: Friday, January 27, 2017 20:20 - CONCLUSION: 1. Thickening of the entire sigmoid colon concerning for colitis. An abscess is not seen. 2. Gallstones. 3. 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 4. 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 The patient has chronic change at the superior aspect of T12 and at the right side of the sacrum. Cristiano Matthews MD PE at Discharge GENERAL: NAD SKIN: Warm and dry. HEAD: Normocephalic. EYES: No scleral icterus. No injection or drainage. NECK: Supple, trachea midline. No JVD or lymphadenopathy. CARDIOVASCULAR: Regular rate and rhythm without murmurs, gallops, or rubs. RESPIRATORY: Breath sounds equal bilaterally. No accessory muscle use. GASTROINTESTINAL: Abdomen soft, non-tender, nondistended. +BS MUSCULOSKELETAL: No cyanosis, or edema. BACK: Nontender without obvious deformity. No CVA tenderness. Hospital Course Patient admitted secondary to acute colitis for which she was started on IV antibiotics. C. difficile PCR was negative and patient treated conservatively with IV fluid and pain management. She was also treated for UTI with Zosyn which she completed prior to discharge. Secondary to failure to thrive, dietitian was consulted and patient's diet was advanced accordingly.. Palliative care medicine was also consulted for assist with goals of end of life. Physical therapy was consulted. DVT and GI prophylaxis were provided. Prior to discharge, patient's condition improved and vitals remained stable. Pt Condition on Discharge: Fair Discharge Disposition: [facility] Discharge Time: > 30 minutes Discharge Instructions DIET: Follow Instructions for: As Tolerated, No Restrictions Activities you can perform: Regular-No Restrictions Follow up Referrals: PCP Follow-up - 2-3 Days New Medications: Amoxicillin-Clavulanate (Amoxicillin-Clavulanate) 875-125 mg Tab 875 MG PO Q12HR for Infection, #8 TAB not for use in CrCl <30 mL/minute Continued Medications: Acetaminophen (Tylenol) 325 Mg Tab 650 MG PO Q4H PRN for Pain/Fever >99, TAB 0 Refills Aspirin (Aspirin) 325 Mg Tab 325 MG PO DAILY, #30 TAB 0 Refills Calcium Carbonate (Antacid) (Tums) 500 Mg Chew 1000 MG PO DAILY for Diverticulitis, TAB 0 Refills Carbamazepine (Tegretol) 200 Mg Tab 200 MG PO BID, #60 TAB 0 Refills Cyanocobalamin (Vitamin B-12) 1,000 Mcg Subl 1000 MCG SL DAILY for Nutritional Supplement, TAB.SL 0 Refills Donepezil (Aricept) 23 Mg Tab 10 MG PO HS, TAB Do not split, crushed or chewed. Meloxicam (Meloxicam) 7.5 Mg Tab 7.5 MG PO DAILY for Arthritis Pain, TAB 0 Refills Prednisone (Prednisone) 10 Mg Tab 10 MG PO DAILY, TAB 0 Refills Raloxifene (Raloxifene) 60 Mg Tab 60 MG PO DAILY for Diverticulitis of intestine, #30 TAB 0 Refills Ramipril (Ramipril) 10 Mg Cap 10 MG PO BID, #60 CAP 0 Refills Sennosides-Docusate Sodium (Senna-Plus) 8.6-50 Mg Tab 2 TAB PO DAILY PRN for CONSTIPATION, TAB 0 Refills Sertraline (Zoloft) 25 Mg Tab 25 MG PO HS for Depression Control, #30 TAB 0 Refills Discontinued Medications: Fentanyl Patch 72 HR (Fentanyl Patch 72 HR) 25 Mcg/Hr Patch 25 MCG T-DERMAL Q72H for Pain Management, #10 PATCH 0 Refills Lidocaine Topical (Lidocaine Topical) 5 % Oint 1 TOPICAL Q8HR PRN for PAIN, #1 TUBE 0 Refills Apply to lt forearm Loperamide (Imodium A-D) 2 Mg Capsule 2 MG PO Q6H PRN for DIARRHEA, #30 CAP 0 Refills Loperamide (Imodium A-D) 2 Mg Capsule 2 MG PO DIRECTED PRN for DIARRHEA, CAP 0 Refills One capsule after each loose stool. Not to exceed 8 tablets per day. Methadone (Methadone) 5 Mg Tab 2.5 MG PO DAILY, TAB 0 Refills Bernardo Morgan MD Feb 02, 2017 11:16
[2017-02-02 12:00] VITALS: BP 169/66; PULSE 78; RESP 18; TEMP 97.4; O2SAT 95
--- NOTE | 2017-02-02 13:14 | HHI.FF ---
Face to Face Verification Diagnosis: (1) Colitis, acute Physical Therapy Order: Evaluate and Treat Home Health Nursing Order: Signs/symptoms of disease process I have seen patient Kimberli Berrios on 02/02/17. My clinical findings support the need for the requested home health care services because: Deconditioned w/ increased weakness I certify that my clinical findings support that this patient is homebound because: Poor cardiac reserve Bernardo Morgan MD Feb 02, 2017 13:14
[2017-02-03] MEDS ORDERED: ENOXAPARIN SODIUM 30 MG/0.3 ML SYRINGE SQ SCH (09:00)
== END 2017-02-02 16:48 | DRG 392 ==
LOC: NEPC 18:31 → NEDA 22:42 → NEPHCDU 01-28 00:26 → OBSVTOIN 01-31 15:14 → N06A 02-01 02:20
PROVIDERS: ADMIT Hospitalist; ATTEND Hospitalist
DX: K52.9 Noninfective gastroenteritis and colitis, unspecified (principal); E44.0 Moderate protein-calorie malnutrition; N39.0 Urinary tract infection, site not specified; E87.1 Hypo-osmolality and hyponatremia; E86.0 Dehydration; Z68.1 Body mass index [BMI] 19.9 or less, adult; G30.9 Alzheimer's disease, unspecified; F02.80 Dementia in other diseases classified elsewhere, unspecified severity, without behavioral disturbance, psychotic disturbance, mood disturbance, and anxiety; E87.6 Hypokalemia; I10 Essential (primary) hypertension; Z66 Do not resuscitate; B96.20 Unspecified Escherichia coli [E. coli] as the cause of diseases classified elsewhere; R62.7 Adult failure to thrive; Z51.5 Encounter for palliative care; D64.9 Anemia, unspecified; M81.0 Age-related osteoporosis without current pathological fracture; Z79.82 Long term (current) use of aspirin; Z86.73 Personal history of transient ischemic attack (TIA), and cerebral infarction without residual deficits; Z87.891 Personal history of nicotine dependence
CPT/HCPCS: 71010; 74000; 74176; 76937; 80048; 80053; 81001; 82272; 82728; 83540; 83550; 83605; 83690; 83735; 84132; 85007; 85025; 85027; 85610; 85730; 86850; 86900; 86901; 87077; 87086; 87186; 87493; 94150; 96361; 96365; 96366; 96368; 96372; G0378; G8987-GP; G8988-GP; J0696; J0744; J1650; J2405; J2543; J3475; J3480; J7030; J7050